=== PATIENT | male | born 1980 | race Two or more races ===

== ENCOUNTER 2024-02-23 09:36 | Inpatient (IN) | payer MEDICAID, SELFPAY ==
[2024-02-23 10:04] VITALS: BP 130/76; PULSE 76; RESP 24; TEMP 36.7; O2SAT 95
--- NOTE | 2024-02-23 10:14 | XR_ITS ---
Examination: CT abdomen with intravenous contrast CT pelvis with intravenous contrast 2-D coronal reconstructions 2-D sagittal reconstructions Date and time of exam:February 23, 2024 1444 hours INDICATIONS: Onset generalized abdominal pain today. CTDI: vol (mGy) 12.0 DLP: (mGycm) 795 Technique: Multiple axial sections of the abdomen and pelvis have been obtained. 64 slice high-resolution scanner used. 3 mm axial sections have been obtained, post intravenous injection 30 cc [id number] 2-D sagittal, coronal reconstructions obtained. Low dose protocols were performed. One or more of the following dose reduction techniques were used; automated exposure control, adjustment of the mA and/or KV according to patient size, use of iterative reconstruction technique. Findings: Moderate vascular congestion Cirrhosis with fatty infiltration, liver irregular in contour Moderate ascites Prominent anasarca No definite gallstones Spleen is not enlarged No pancreatic or adrenal mass No renal or ureteral calculi, no hydronephrosis Aorta not enlarged Fluid containing 25 mm umbilical hernia Appendix is not diagnostically visualized No bowel obstruction Intact urinary bladder No significant prostatomegaly Grade 1 spondylolisthesis L5 on S1 with moderate disc narrowing L5-S1 IMPRESSION: Moderate vascular congestion Cirrhosis Moderate ascites Anasarca 25 mm fluid containing umbilical hernia
--- NOTE | 2024-02-23 10:25 | EDNOTE_ITS ---
ED Abdominal Pain RME/HPI General Chief Complaint: Abdominal Pain Stated complaint: UMBILICAL PAIN [id number] Time seen by provider: 02/23/24 10:20 Arrival date/time: 02/23/24 09:36 RME / HPI RME / HPI narrative: 43 year old male with history of CAD, MD s/p CABG, hypertension, diabetes, DVT, methamphetamine use presents to the ED for evaluation of abdominal pain beginning 3 weeks ago and gradually worsening. States this morning pain was severe, prompting ED visit. Accompanied by constipation (last bowel movement this morning) and urine hesitancy this morning. Patients family at bedside also report patient had been coughing in the last week. Denies fevers, chills, chest pain, shortness of breath, vomiting, or painful urination. Related Data Previous Rx's ?Medication ?Instructions ?Recorded blood sugar diagnostic (Blood #100 ea 07/17/19 Glucose Test strips) blood-glucose meter (Blood Glucose #1 ea 07/17/19 Monitoring kit) lancets 30 gauge (BD Ultra-Fine II #100 ea 07/17/19 Lancets) pen needle, diabetic 32 gauge x #50 ea 07/17/19 1/ (BD Ultra-Fine Micro Pen Needle) apixaban 5 mg (74 tabs) tablets in 5 mg PO BID #74 tabs 08/15/21 a dose pack (Eliquis DVT-PE Treat 30D Start) apixaban 5 mg (74 tabs) tablets in 5 mg PO BID #74 tabs 10/12/21 a dose pack (Eliquis DVT-PE Treat 30D Start) furosemide 40 mg tablet (Lasix) 40 mg PO QDAY #30 tabs 02/04/22 potassium chloride 10 mEq 10 meq PO QDAY #30 tabs 02/04/22 tablet,extended release apixaban 5 mg tablet (Eliquis) 5 mg PO BID #60 tabs 04/14/22 levofloxacin 500 mg tablet 500 mg PO QDAY #10 tabs 06/22/23 Allergies Allergy/AdvReac Type Severity Reaction Status Date / Time No Known Allergies Allergy Verified 02/04/22 19:38 Review of Systems Review of Systems Narrative Review of Systems: GEN: No fever, no chills, no weight loss EYES: No discharge, no visual changes, no pain HEENT: No ear pain, no congestion, no sore throat PULM: No shortness of breath, no cough, no congestion CV: No chest pain, no dyspnea on exertion, no palpitations GI: No nausea, no vomiting, no diarrhea, +pain, +constipation : +urine hesitancy. No frequency, no urgency and no dysuria MUSC/SKEL No joint pain, no back pain SKIN: No rash NEURO: No weakness, no headache Past Medical History Past Medical History NEUROLOGIC: Positive Cerebrovascular Accident CARDIAC: Positive Cardiac Disorders, Myocardial Infarction, Coronary Artery Disease, Hypercholesterolemia, Deep Vein Thrombosis and Hypertension RESPIRATORY: Positive Asthma and Bronchitis GASTROINTESTINAL: Positive Gastrointestinal Disorders and Gastroesophageal Reflux Disease ENDOCRINE: Positive Endocrine Disorders and Diabetes Mellitus Type 2 Family History FAMILY HISTORY: Positive Family Cardiac Disorders Surgical History SURGICAL: Positive Coronary Artery Bypass Graft Social History SMOKING STATUS: Current some day smoker SUBSTANCE USE: methamphetamine ED Exam Narrative Physical exam: GENERAL APPEARANCE: Well hydrated, well nourished, appears to be in pain. VITALS: All vitals were reviewed and the pulse ox is 95% on room air which is normal according to my interpretation. HEENT: Normocephalic, atramatic, EOMI, EACs are patent. There is no bulge or re traction. Throat without erythema or exudate. Moist oromucosa. No jaundice NECK: Supple, no JVD or bruits. CARDIOVASCULAR: Heart regular without S3-S4 or murmur. No rubs or gallops. LUNGS/CHEST: Clear to auscultation bilaterally. No rales, rhonchi, or wheezing. Normal inspection. ABDOMEN: Soft, distended, vague generalized tenderness throughout with normal bowel sounds. Palpable umbilical hernia. No pulsatile masses. No rebound, rigidity, or guarding. No incarcerated hernia. EXTREMITIES: Normal inspection and palpation. No edema, clubbing, or cyanosis. Intact CSM SKIN: Warm and dry without rashes. Normal inspection. MUSCULOSKELETAL: Normal inspection. No gross deformity, full ROM all extremities NEURO: Alert and oriented x3. Cranial nerves II through XII grossly intact. There are no other motor or sensory deficits noted. PSYCHIATRIC: Normal mood and affect. No psychosis. Course Quality Measures none Orders Category Date Time Status CT Screening NOW Care 02/23/24 10:14 Active Insert IV NOW Care 02/23/24 10:[address] abdomen pelvis w con Stat Exams 02/23/24 10:14 Completed BNP [B-Type Natriuretic Peptide] Stat Lab 02/23/24 10:21 Completed CBC Stat Lab 02/23/24 10:21 Completed Comprehensive Metabolic Panel Stat Lab 02/23/24 10:21 Completed Drug Screen,Urine Stat Lab 02/23/24 10:14 Ordered Lipase Stat Lab 02/23/24 10:21 Completed UA, C/S IF [Urinalysis, C/S if Indicated] Stat Lab 02/23/24 10:14 Ordered Calcium Gluconate 10% Inj Med 02/23/24 16:00 Discontinued 1 gm IV X1 ONE LORazepam [Ativan Inj] Med 02/23/24 10:38 Discontinued 2 mg IVP X1 STA Morphine Inj Med 02/23/24 10:14 Discontinued 4 mg IVP X1 ONE Ondansetron Inj [Zofran Inj] Med 02/23/24 10:14 Discontinued 4 mg IV X1 ONE Sodium Bicarb 8.4% SYR Med 02/23/24 16:00 Discontinued 50 ml IV X1 ONE Sodium Chloride 0.9% 1000 ml [Ns] 1,000 ml Med 02/23/24 10:38 Active IV 125 mls/hr Vital Signs Vital signs: Vital Signs Temperature 98.0 F 02/23/24 10:04 Pulse Rate 76 02/23/24 10:04 Respiratory Rate 24 H 02/23/24 10:04 Blood Pressure 130/76 02/23/24 10:04 Pulse Oximetry (%) 95 02/23/24 10:04 Oxygen Delivery Method Room Air 02/23/24 10:04 Abdominal Pain MDM MDM Narrative MDM Narrative:: I, Breanne Miller, kendell scribing for and in the presence of Dr. Pritchard. CBC unremarkable. Potassium of 5.7. Bicarb of 17. Creatinine 1.6 and BUN of 39. Blood sugar is 152. We are giving him calcium gluconate, gentle IV fluid hydration, and sodium bicarb. U tox is pending. UA is pending. BNP is 1670. CT abdomen and pelvis was read by Dr. Tommy Davalos. Please see his report. I spoke to Dr. Tommy Davalos verbally on the phone. He said that the ascites fluid is not enough to be safely removed by paracentesis. 4 PM I spoke to and discussed with Dr. De La Rosa, resident of Dr. Little, attending hospitalist. He agreed to assess the patient for admission. Critical care time is approximately 35 minutes excluding any procedure. The high probability of sudden, clinically significant deterioration in the patient?s condition required the highest level of my preparedness to intervene urgently. The services I provided to this patient were to treat and/or prevent clinically significant deterioration. Services included the following: chart data review, reviewing nursing notes and/or old charts, documentation time, wardrobe image consultant collaboration regarding findings and treatment options, medication orders and management, direct patient care, vital sign assessments and ordering, interpreting and reviewing diagnostic studies and lab tests. Aggregate critical care time includes only time during which I was engaged in work directly related to the patient?s care, as described above, whether at bedside or elsewhere in the Emergency Department. It did not include time spent performing other reported procedures or the services of residents, students, nurses or physician assistants. Patient data External records reviewed:: [facility] previous records (I reviewed ED visit on 06/22/2023) Clinical information provided by:: patient Social determinants that could affect healthcare access:: substance use (Hx of meth use, states he last used more than 1 week ago ) Patient has the following chronic illnesses:: CAD, MD s/p CABG, hypertension, diabetes, DVT, methamphetamine use How is presenting disease/condition affected by chronic disease/condition?: exacerbated by Evaluation data The following diagnostics were reviewed and interpreted by me:: lab results and radiology exam(s) Lab and/or radiology exams considered but not ordered:: None Interpretation Summary: Ordering Physician: Agustin MOE)Ottoniel NP Date of Service: 02/23/24 Procedure(s): CT abdomen pelvis w con Accession Number(s): [id number] cc: Agustin MOE)Ottoniel NP; Tommy Davalos MD; Olaf Hernandez PA-C~ Examination: CT abdomen with intravenous contrast CT pelvis with intravenous contrast 2-D coronal reconstructions 2-D sagittal reconstructions Date and time of exam:February 23, 2024 1444 hours INDICATIONS: Onset generalized abdominal pain today. CTDI: vol (mGy) 12.0 DLP: (mGycm) 795 Technique: Multiple axial sections of the abdomen and pelvis have been obtained. 64 slice high-resolution scanner used. 3 mm axial sections have been obtained, post intravenous injection 30 cc [id number] 2-D sagittal, coronal reconstructions obtained. Low dose protocols were performed. One or more of the following dose reduction techniques were used; automated exposure control, adjustment of the mA and/or KV according to patient size, use of iterative reconstruction technique. Findings: Moderate vascular congestion Cirrhosis with fatty infiltration, liver irregular in contour Moderate ascites Prominent anasarca No definite gallstones Spleen is not enlarged No pancreatic or adrenal mass No renal or ureteral calculi, no hydronephrosis Aorta not enlarged Fluid containing 25 mm umbilical hernia Appendix is not diagnostically visualized No bowel obstruction Intact urinary bladder No significant prostatomegaly Grade 1 spondylolisthesis L5 on S1 with moderate disc narrowing L5-S1 IMPRESSION: Moderate vascular congestion Cirrhosis Moderate ascites Anasarca 25 mm fluid containing umbilical hernia Dictated By: oTmmy Davalos MD Signed By: <Electronically signed by Tommy Davalos MD in [place]> 02/23/24 1530 Medications / Prescriptions Medications or Prescriptions considered but not ordered:: None Medication administrations:: Medication Administration History Sodium Chloride (Ns) 1,000 mls @ 125 mls/hr IV .Q8H ONE Stop: 02/23/24 18:37 Last Admin: 02/23/24 12:38 Dose: 125 mls/hr Documented By: DB Discontinued Medications Calcium Gluconate (Calcium Gluconate 10% Inj 1 Gm/10 Ml Vial) 1 gm IV X1 ONE Stop: 02/23/24 16:01 Lorazepam (Lorazepam 2 Mg/Ml Vial) 2 mg IVP X1 STA Stop: 02/23/24 10:39 Last Admin: 02/23/24 10:48 Dose: 2 mg Documented By: CLAUDIO Morphine Sulfate (Morphine Sulf Inj 10 Mg/Ml Vial) 4 mg IVP X1 ONE Stop: 02/23/24 10:15 Last Admin: 02/23/24 10:31 Dose: 4 mg Documented By: DB Ondansetron HCl (Ondansetron Inj 2 Mg/Ml Inj 2 Ml) 4 mg IV X1 ONE; Protocol Stop: 02/23/24 10:15 Last Admin: 02/23/24 10:30 Dose: 4 mg Documented By: CLAUDIO Sodium Bicarbonate (Sodium Bicarb Inj 8.4% Syr 50 Ml Syringe) 50 ml IV X1 ONE Stop: 02/23/24 16:01 See above Consultations Consultation(s) initiated? (list below): Yes Consultation #1 (Physician, Specialty, Details): I spoke with hospitalist Dr. De La Rosa working with Dr. Little. Discussed patients PMHx, HPI, ED course, exam findings, labs, and radiology results as noted above. Diagnosis Differential diagnosis abdominal pain: abdominal pain, acute appendicitis, calculus of kidney, constipation, diverticulitis, gastroenteritis, pancreatitis and small bowel obstruction Most likely diagnosis given after review of the tests above:: Cirrhosis. Ascites. Umbilical hernia. Metabolic acidosis. Hyperkalemia Admission Indicated Admission indicated?: indicated Admission Request Was there a request for admission?: Yes Admission Attestation Admission request attestation: Discussed case with [] from Hospitalist service regarding admission. Discussed patients ED course, exam findings, labs, and radiology results. The Hospitalist [agrees,declines] to accept the patient for admission. Disposition Plan Disposition Plan: Admit Discharge Plan Plan Patient Disposition: Admit Acute Care w/in Hospital Disposition Comment: Stable for admit Prescriptions/Referrals Prescriptions/Med Rec: No Action Eliquis DVT-PE Treat 30D Start 5 mg (74 tabs) tablets,dose pack 5 mg PO BID Qty: 74 0RF Rx Instructions: Take 10 mg every day for 7 days then you lower the dose to 5 mg daily until your doctors tell you otherwise. (DME) blood-glucose meter [Blood Glucose Monitoring] Kit See Rx Instructions .ROUTE .MEDSUPPLY Qty: 1 0RF Rx Instructions: As directed check BS 3 times a day (DME) blood sugar diagnostic [Blood Glucose Test] Strip See Rx Instructions .ROUTE .MEDSUPPLY Qty: 100 0RF Rx Instructions: As directed check BS 3 times a day (DME) lancets [BD Ultra-Fine II Lancets] 30 gauge misc See Rx Instructions .ROUTE .MEDSUPPLY Qty: 100 0RF Rx Instructions: As directed check BS 3 times a day (DME) pen needle, diabetic [BD Ultra-Fine Micro Pen Needle] 32 gauge x 1/4 needle See Rx Instructions .ROUTE .MEDSUPPLY Qty: 50 0RF Rx Instructions: As directed Eliquis DVT-PE Treat 30D Start 5 mg (74 tabs) tablets,dose pack 5 mg PO BID Qty: 74 0RF Rx Instructions: Take 2 TAB/day x 7 days, and then 1 Tab thereafter Eliquis 5 mg tablet 5 mg PO BID Qty: 60 1RF levofloxacin 500 mg tablet 500 mg PO QDAY Qty: 10 0RF furosemide [Lasix] 40 mg tablet 40 mg PO QDAY Qty: 30 0RF potassium chloride 10 mEq tablet extended release 10 meq PO QDAY Qty: 30 0RF Referrals: Olaf Hernandez PA-C [Primary Care Provider] - In 1 week Problem List Clinical Impression: Abdominal pain, Cirrhosis of liver, Abdominal ascites, Umbilical hernia, Acute hyperkalemia, Metabolic acidosis Patient/Caregiver Discharge Instructions Print Language: Emirati Stand Alone Forms: Ellie Award Info., Patient Portal Info Letter
[2024-02-23] MEDS: ONDANSETRON INJ 2 MG/ML INJ 2 ML 4 MG IV (10:30)
[2024-02-23] MEDS: MORPHINE SULF INJ 10 MG/ML VIAL 4 MG IVP (10:31)
[2024-02-23 10:35] LABS: Basophils # (Auto) 0.1 Thou/mm3 (0.0-0.2); Basophils % (Auto) 1 % (0-2.5); Eosinophils # (Auto) 0.2 Thou/mm3 (0.0-0.5); Eosinophils % (Auto) 2 % (0-10); Hematocrit 36.7 % (41.0-53.0); Hemoglobin 11.7 g/dL (13.5-16.0); Immature Granulocytes % (Auto) 0 % (0-0); Immature Granulocytes Auto 0.02 Thou/mm3 (0.00-0.00); Lymphocytes # (Auto) 0.8 Thou/mm3 (1.0-4.8); Lymphocytes % (Auto) 11 % (10-50); Mean Corpuscular HGB Conc 31.9 g/dl (31.0-37.0); Mean Corpuscular Hemoglobin 29.3 pg (25.0-35.0); Mean Corpuscular Volume 92 fL (80-100); Monocytes # (Auto) 0.6 Thou/mm3 (0.0-0.8); Monocytes % (Auto) 9 % (0-12); Neutrophils # (Auto) 5.2 Thou/mm3 (1.8-7.7); Neutrophils % (Auto) 77 % (37-80); Nucleated Red Blood Cell % 0 /100 WBC (0); Platelet Count 241 Thou/mm3 (140-440); RDW Standard Deviation 56.5 fL (35.1-43.9); Red Blood Count 3.99 Miln/mm3 (4.50-5.90); White Blood Count 6.7 Thou/mm3 (3.8-10.6)
[2024-02-23] MEDS: LORazepam 2 MG/ML VIAL IVP (10:48)
[2024-02-23 11:01] LABS: Alanine Aminotransferase 17 U/L (10-49); Albumin, Serum 3.8 gm/dL (3.5-5.0); Alkaline Phosphatase 144 U/L (46-116); Anion Gap 10 (7-16); Aspartate Amino Transferase 24 U/L (0-34); BUN/Creatinine Ratio 24 Ratio (12-20); Bilirubin,Total 1.2 mg/dL (0.3-1.2); Blood Urea Nitrogen 39 mg/dL (9-23); Calcium 8.8 mg/dL (8.3-10.6); Carbon Dioxide 17.1 mMol/L (20.0-31.0); Chloride 105 mMol/L (98-107); Creatinine (Component) 1.6 mg/dL (0.6-1.3); Globulin 3.8 gm/dL (2.3-3.5); Glucose 152 mg/dL (74-106); Lipase 53 U/L (12-53); Osmolality,Calculated 276 (275-295); Potassium 5.7 mMol/L (3.4-5.1); Sodium 132 mMol/L (136-145); Total Protein 7.6 gm/dL (5.7-8.2); eGFR 55 See Note
[2024-02-23 12:02] LABS: B-Type Natriuretic Peptide 1672 pg/mL (0-100)
[2024-02-23 12:32] VITALS: BP 128/90; PULSE 56; RESP 20; TEMP 36.5; O2SAT 100
[2024-02-23] MEDS: SODIUM CHLORIDE 0.9% 1000 ML 1,000 ML 125 ML IV (12:38)
[2024-02-23 14:22] VITALS: BP 145/94; PULSE 55; RESP 17; TEMP 37; O2SAT 100
[2024-02-23] MEDS: CALCIUM GLUCONATE 10% INJ 1 GM/10 ML VIAL IV (16:20)
[2024-02-23] MEDS: Sodium Bicarb Inj 8.4% SYR 50 ML SYRINGE IV ×2 (16:25→18:28)
[2024-02-23 16:30] LABS: Collection Type, Urine Clean Catch
[2024-02-23 16:37] LABS: Bilirubin,Urine Negative (Negative); Blood,Urine Trace (Negative); Clarity,Urine Clear (Clear/Hazy); Color,Urine Yellow (Lt Yel-Yel); Culture Indicated,Urine Not Indicated; Glucose, Urine Trace (Negative); Hyaline Casts,Urine < 1 /hpf (0-1); Ketones,Urine Negative (Negative); Leukocyte Esterase,Urine Negative (Negative); Nitrite,Urine Negative (Negative); PH,Urine 5.5 (5.0-7.0); Protein,Urine 3+ (Neg - Trace); RBC,Urine 2 /hpf (0-3); Specific Gravity,Urine 1.024 (1.001-1.035); Squamous Epithelial Cell,Urine < 1 /hpf (0-5); WBC,Urine 3 /hpf (0-5)
--- NOTE | 2024-02-23 16:43 | EKG_ITS ---
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
--- NOTE | 2024-02-23 16:53 | EKG_ITS ---
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1980 Requested By: Annabelle Baltazar Order Number: [id number] Reading MD: Annabelle Baltazar Measurements Intervals [place] Rate: 65 P: 27 MD: 169 QRS: 131 QRSD: 112 T: 23 QT: 430 QTc: 448 Interpretive Statements SINUS RHYTHM MARKED RIGHT AXIS DEVIATION [QRS AXIS > 100] LOW QRS VOLTAGE IN EXTREMITY LEADS [QRS DEFLECTION < 0.5 mV IN LIMB LEADS] ANTERIOR MYOCARDIAL INFARCTION , PROBABLY OLD [40+ ms Q WAVE AND/OR ST/T ABNORMALITY IN V3/V4] POSSIBLE INFERIOR MYOCARDIAL INFARCTION , PROBABLY OLD [30 ms Q WAVE IN II/aVF] Compared to ECG 02/23/2024 16:49:59 Right-axis deviation now present Myocardial infarct finding still present /store/S0/[id number]/[id number].pdf
--- NOTE | 2024-02-23 16:56 | PD.EDADDENDU ---
Emergency Room Addendum Addendum Narrative: EKG at 1652 interpreted by me: Normal sinus rhythm. Heart rate of 63. Normal axis. No ST elevation. No ST depression. No PVC. No STEMI. Old Q waves in leads V2
[2024-02-23 16:58] VITALS: BP 137/87; PULSE 57; RESP 20; TEMP 37; O2SAT 100
--- NOTE | 2024-02-23 16:58 | ECHO_ITS ---
Transthoracic Echo Report Ht (in): 64 Wt (lb): 220 Exam Location: Portable Status: Emergency Anesthetist: Aretha Auguste Indications: Procedure Performed: BP: 120 / 55 HR: 64 Rhythm: Atrial fibrillation Technical Quality: Fair MEASUREMENTS (Male / Female) Normal Values 2D ECHO LV Diastolic Diameter PLAX 5.7 cm 4.2 - 5.9 / 3.9 - 5.3 cm LV Systolic Diameter PLAX 4.9 cm IVS Diastolic Thickness 1.6 cm 0.6 - 1.0 / 0.6 - 0.9 cm LVPW Diastolic Thickness 1.1 cm 0.6 - 1.0 / 0.6 - 0.9 cm LV Relative Wall Thickness 0.5 LVOT Diameter 2.3 cm LA Volume Index 40.8 cm?/m? 16 - 28 cm?/m? Ascending Aorta Diameter 3.0 cm M-MODE Aortic Root Diameter MM 2.8 cm LA Systolic Diameter MM 4.9 cm LA Ao Ratio MM 1.8 MV E Point Septal Separation 1.6 cm AV Cusp Separation MM 2.0 cm DOPPLER AV Peak Velocity 136.0 cm/s AV Peak Gradient 7.4 mmHg AV Mean Gradient 4.0 mmHg AV Velocity Time Integral 25.7 cm LVOT Peak Velocity 77.1 cm/s LVOT Peak Gradient 2.4 mmHg LVOT Velocity Time Integral 13.9 cm LVOT Cardiac Index 1703.0 cm?/min?m? AV Area Cont Eq vti 2.2 cm? AV Area Cont Eq pk 2.4 cm? MV Peak Velocity 129.0 cm/s MV Peak Gradient 6.7 mmHg MV Mean Velocity 60.7 cm/s MV Mean Gradient 2.0 mmHg MV Area PHT 4.3 cm? MR Peak Velocity 282.0 cm/s MR Peak Gradient 31.8 mmHg Mitral E Point Velocity 101.0 cm/s Mitral A Point Velocity 32.5 cm/s Mitral E to A Ratio 3.1 LV E' Lateral Velocity 6.9 cm/s Mitral E to LV E' Lateral Ratio 14.7 LV E' Septal Velocity 5.9 cm/s Mitral E to LV E' Septal Ratio 17.2 TR Peak Velocity 256.3 cm/s TR Peak Gradient 26.3 mmHg FINDINGS Left Ventricle Dilated LV. Severe systolic dysfunction. Global hypokiensis. The ejection fraction is visually est imated at 30-35%. Right Ventricle The right ventricle is moderately dilated. Mild systolic dysfunction. The estimated right ventricula r systolic pressure, 54mmHg. RAP 15. Left Atrium The left atrium is mildly dilated. Right Atrium The right atrium is mildly dilated Atrial Septum The interatrial septum appears normal with no evidence of a shunt. Aorta The aorta is normal by two-dimensional, color flow and Doppler interrogation. Mitral Valve The mitral valve is normal by two-dimensional, color flow and Doppler interrogation. There is mild mitral valve regurgitation. Aortic Valve The aortic valve is trileaflet and normal by two-dimensional, color flow and Doppler interrogation. There is no significant aortic valve regurgitation. Tricuspid Valve The tricuspid valve is normal by two-dimensional, color flow and Doppler interrogation. There is mil d to moderate tricuspid valve regurgitation. Pulmonic Valve There is no significant pulmonic valve regurgitation. Vessels The pulmonary artery appears normal. The inferior vena cava pulmonary and hepatic veins appear dilat ed. Pericardium The pericardium is normal by two-dimensional imaging. There is no significant pericardial effusion. CONCLUSIONS Indication: CHF Dilated LV. Severe systolic dysfunction. Moderate septal LVH. Global hypokinesis. Estimated EF 30-3 5% Cannot determine diastolic function due to Afib. Moderate RV dilatation. Mild RV dysfunction. Estimated RVSP 54mmHg. Modertae PAH Mild biatrial dialtation. Pleural effusion present. Mild MR, Mild to moderate TR. IVC dilated. Aneesh Ashraf (Electronically Signed) Final Date: 24 February 2024 19:35
[2024-02-23 17:12] LABS: Base Excess -9 (-3-3); HCO3 17 mEq/L (20-26); Inspired O2, VO2 Liters 4 L/min; Inspired Oxygen, FIO2 21 %; O2 Saturation 100 % (91-98); PCO2 39 mmHg (32.0-48.0); PO2 142 mmHg (83-108); pH, Arterial 7.26 (7.35-7.45)
[2024-02-23 17:13] LABS: Allen Test Performed/OK; Puncture Site Right Radial
--- NOTE | 2024-02-23 17:15 | XR_ITS ---
Examination: AP chest single view TECHNIQUE: AP portable semiupright chest single view Exam date and time: February 23, 2024 1733 hours Comparison April 14, 2022 INDICATIONS: Shortness of breath today. FINDINGS: Mild to moderate CHF Moderate enlargement cardiac contour CABG Prominent vascular congestion. Perihilar edema Prominent osteopenia IMPRESSION: Mild to moderate CHF
--- NOTE | 2024-02-23 17:15 | XR_ITS ---
Examination: CT brain head without contrast. 2-D sagittal coronal reconstructions Date and time of exam:February 23, 2024 2019 hrs. Indications: Altered mental status today, diagnosis acute decompensated liver cirrhosis CTDI: vol (mGy):54.8 DLP: (mGycm):1085 Technique: Multiple CT axial sections of the brain have been obtained, 5 mm slice thickness. Contrast has not been administered. 2-D sagittal, coronal reconstructions have been obtained Low dose protocols were performed. One or more of the following dose reduction techniques were used; automated exposure control, adjustment of the mA and/or KV according to patient size, use of iterative reconstruction technique. Findings: No significant ventricular enlargement. Intra-axial or extra-axial hemorrhage density is not seen. No mass effect or midline shift Basal cisterns are not remarkable. Fourth ventricle is midline. Cranial vault intact. Impression: Negative for acute hemorrhage, mass effect or midline shift Advise clinical correlation and follow-up accordingly Consider MRI without contrast follow-up
--- NOTE | 2024-02-23 17:28 | PD.RESPRO ---
Documentation for date of: 02/23/24 Subjective Subjective Interval history: This is a 43-year-old male with past medical history of CHF, CAD s/p CABG, liver cirrhosis, HTN, diabetes, previous DVT, alcohol dependency, METHAMPHETAMINE, presenting with 3 weeks of worsening abdominal pain, constipation, urinary hesitation. History was limited, taken from chart review, and [id number] at bedside as patient was A&Ox3 but somnolent after getting MORPHINE and LORAZEPAM earlier. He has been complaining of worsening abdominal pain over the last 3 weeks, refused to come into the hospital, attempted to manage her pain independently, but it did not resolve. Apparently pain worsened significantly over the last 2 days and was complaining of urinary symptoms (unspecified). Last bowel movement was this morning and it was normal. Per family, patient noncompliant with his home meds. No reported headaches, altered mental status, confusions, fall or trauma, fever, chills, GI bleed including hematemesis or hematochezia, nausea or vomiting or diarrhea, or hematuria. ED COURSE: Afebrile, BP 130/76, HR 76, RR 24, satting 95% on 7 L. Hgb 11.7 (baseline 12?13), PLT 241, no leukocytosis. Normal coag studies. Sodium 132, potassium 5.7, BUN 39, CR 1.6 (baseline 1.3), GFR 55, GLUCOSE 152, normal LFTs, ammonia 46, BNP 1672, troponin pending, GLUCOSE 52. ABG showed metabolic acidosis with pH 7.26, bicarb 17, pCO2 39. Anion gap normal. UA negative for UTI. U tox pending. PMHx: CHF, CAD s/p CABG, cirrhosis, HTN, DM, previous DVT, alcohol dependency, METHAMPHETAMINE dependency. PSHx: CABG MEDS: LASIX, SPIRONOLACTONE, FARXIGA, ENTRESTO, ASPIRIN, REPATHA, statin, PAROXETINE ALLERGIES: No known allergies SH: Denies smoking, admits to alcohol use and drug use. Exam Vital Signs Temp Pulse Resp BP Pulse Ox O2 Del Method O2 Flow Rate 98.6 F 57 L 20 137/87 H 100 Nasal Cannula 6 02/23/24 16:58 02/23/24 16:58 02/23/24 16:58 02/23/24 16:58 02/23/24 16:58 02/23/24 16:58 02/23/24 16:58 Narrative Exam GENERAL Obese, anasarcous, somnolent, on 6 L NC HEENT NCAT.?ANI. Oral mucosa is moist. Patent Nares NECK Supple, nontender, no thyromegaly, no meningismus, no JVD, no step offs CHEST RRR, no m/g/r Coarse breath sounds bilaterally, no wheezing. Atraumatic, nontender, no crepitus, symmetrical expansion. ABDOMEN Distended, positive fluid shift, striations, erythematous, diffusely tender to palpation with guarding. Umbilical hernia noted on exam. Bowel sounds presents EXTREMITIES 2+ bilateral lower extremity edema extending above the knee, tender to palpation, erythematous. SKIN Warm and dry, mild scleral icterus, no jaundice NEUROMUSCULAR No lumbar or midline, no CVA, no paraspinal muscle spasm or tenderness. Moves all 4 extremities well, with full ROM and good CSM. A&Ox3. No focal neurologic deficits. PSYCHIATRY Numbness, difficult to arouse, cooperative, no SI or HI or hallucinations. Objective Labs 02/23/24 10:21 02/23/24 10:21 Labs: Laboratory Results - last 24 hr 02/23/24 02/23/24 02/23/24 10:21 16:00 17:08 WBC 6.7 RBC 3.99 L Hgb 11.7 L Hct 36.7 L MCV 92 MCH 29.3 MCHC 31.9 RDW Std Deviation 56.5 H Plt Count 241 Neut % (Auto) 77 Lymph % (Auto) 11 [place] % (Auto) 9 Eos % (Auto) 2 Baso % (Auto) 1 Neut # (Auto) 5.2 Lymph # (Auto) 0.8 L [place] # (Auto) 0.6 Eos # (Auto) 0.2 Baso # (Auto) 0.1 Immature Gran # (Auto) 0.02 H Absolute Nucleated RBC 0.00 Immature Gran % 0 Nucleated RBC % 0 Puncture Site Right Radial ABG pH 7.26 L ABG pCO2 39 ABG pO2 142 H ABG HCO3 17 L ABG O2 Saturation 100 H ABG Base Excess -9 L Oxygen Liter Flow 4 FiO2 21 Sodium 132 L Potassium 5.7 H Chloride 105 Carbon Dioxide 17.1 L Anion Gap 10 BUN 39 H Creatinine 1.6 H Estim Creat Clear Calc Not Performed. eGFR 55 L BUN/Creatinine Ratio 24 H Glucose 152 H Calculated Osmolality 276 Calcium 8.8 Corrected Calcium 9.0 Total Bilirubin 1.2 AST 24 ALT 17 Alkaline Phosphatase 144 H B-Natriuretic Peptide 1672 H* Total Protein 7.6 Albumin 3.8 Globulin 3.8 H Albumin/Globulin Ratio 1.0 L Lipase 53 Ur Collection Type Clean Catch Urine Color Yellow Urine Clarity Clear Urine pH 5.5 Ur Specific [place] 1.024 Urine Protein 3+ A Urine Glucose (UA) Trace Urine Ketones Negative Urine Blood Trace Urine Nitrite Negative Urine Bilirubin Negative Urine Urobilinogen (Auto) 2.0 Ur Leukocyte Esterase Negative Urine RBC 2 Urine WBC 3 Ur Squamous Epith Cells < 1 Urine Bacteria None Hyaline Casts < 1 Ur Culture Indicated? Not Indicated ABG Interpretation ABG results: 02/23/24 17:08 ABG pH 7.26 L ABG pCO2 39 ABG pO2 142 H ABG HCO3 17 L ABG O2 Saturation 100 H ABG Base Excess -9 L Quality Measures Quality Measures none Assessment & Plan Assessment Current Active Medications: Generic Name Dose Route Start Last Admin Trade Name Freq PRN Reason Stop Dose Admin Aspirin 81 mg 02/24/24 09:00 Aspirin Ec 81 Mg Tabec PO 03/25/24 08:59 QDAY [facility] Atorvastatin Calcium 80 mg 02/23/24 21:00 Atorvastatin Calcium 20 Mg Tablet PO 03/24/24 20:59 HS JUDSON Dextrose 25 ml 02/23/24 16:54 Dextrose 50%-Water Inj 50 Ml Syringe IV 03/24/24 16:53 Q15MIN PRN BG 50-70 responsive npo pt Dextrose 50 ml 02/23/24 16:54 Dextrose 50%-Water Inj 50 Ml Syringe IV 03/24/24 16:53 Q15MIN PRN BG <50 OR BG <70 & pt unresponsive Furosemide 40 mg 02/24/24 09:00 Furosemide Inj 10 Mg/Ml 4ml Vial IVP 03/25/24 08:59 BID JUDSON Glucagon 1 mg 02/23/24 16:54 Glucagon Inj 1 Mg Vial IM Q15MIN PRN BG <70, and no IV access Ceftriaxone Sodium 2 gm/ 50 mls @ 100 mls/hr 02/23/24 17:00 Sodium Chloride IV 03/01/24 16:59 QDAY [facility] Insulin Human Lispro 0 unit 02/24/24 07:30 Insulin Lispro (Admelog) 1 Unit/0.01 Ml Unit SC 03/25/24 07:29 AC JUDSON Protocol Ondansetron HCl 4 mg 02/23/24 16:56 Ondansetron Inj 2 Mg/Ml Inj 2 Ml IV 03/24/24 16:55 Q6H PRN NAUSEA OR VOMITING Protocol Oxycodone/Acetaminophen 1 tab 02/23/24 16:56 Oxycodone/Apap 5/325 Tablet PO 02/28/24 16:55 Q6H PRN PAIN SCALE 4-6 (Moderate Pantoprazole Sodium 40 mg 02/23/24 21:00 Pantoprazole Inj 40 Mg Vial IVP 03/24/24 20:59 BID JUDSON Spironolactone 25 mg 02/24/24 09:00 Spironolactone 25 Mg Tablet PO 03/25/24 08:59 QDAY JUDSON Plan In summary: 43-year-old male with PMHx of CHF, CAD s/p CABG, liver cirrhosis, HTN, diabetes, previous DVT, alcohol dependency, METHAMPHETAMINE, presenting with abdominal pain. Admitted for liver cirrhosis, anasarcous, CHF exacerbation, and VIOLETA. Acute encephalopathy DDx: ANALGESICS, alcohol intoxication, hepatic encephalopathy. Patient somnolent on exam, ANOx3. Likely related to MORPHINE and LORAZEPAM given for pain earlier. Per family at bedside, he had normal mentation prior. Ammonia 46, still low suspicion for hepatic encephalopathy but will give LACTULOSE ? ? Liver cirrhosis Anasarca CHF exacerbation Anemia Hyperkalemia VIOLETA with 3 weeks of worsening abdominal pain, constipation, urinary hesitation. History was limited, taken from chart review, and [id number] at bedside as patient was A&Ox3 but somnolent after getting MORPHINE and LORAZEPAM earlier. He has been complaining of worsening abdominal pain over the last 3 weeks, refused to come into the hospital, attempted to manage her pain independently, but it did not resolve. Apparently pain worsened significantly over the last 2 days and was complaining of urinary symptoms (unspecified). Last bowel movement was this morning and it was normal. Per family, patient noncompliant with his home meds. No reported headaches, altered mental status, confusions, fall or trauma, fever, chills, GI bleed including hematemesis or hematochezia, nausea or vomiting or diarrhea, or hematuria. ED COURSE: Afebrile, BP 130/76, HR 76, RR 24, satting 95% on 7 L. Hgb 11.7 (baseline 12?13), PLT 241, no leukocytosis. Normal coag studies. Sodium 132, potassium 5.7, BUN 39, CR 1.6 (baseline 1.3), GFR 55, GLUCOSE 152, normal LFTs, ammonia 46, BNP 1672, troponin pending, GLUCOSE 52. ABG showed metabolic acidosis with pH 7.26, bicarb 17, pCO2 39. Anion gap normal. UA negative for UTI. U tox pending.
[2024-02-23 17:37] LABS: Ammonia 46 uMol/L (11-32)
--- NOTE | 2024-02-23 17:37 | XR_ITS ---
Examination: Venous duplex lower extremity sonogram, bilateral. Date and time of exam: February 23, 2024 1759 hrs. Bilateral leg swelling and redness pain one month Technique: Multiple sonographic images of the deep venous system have been obtained. B-mode/2-D grayscale imaging of vascular structures and Doppler spectral analysis (waveforms) and color performed Both legs are examined. Findings: Deep venous systems do not demonstrate abnormal echogenicity. All visualized deep veins exhibit compressibility. All visualized deep veins exhibit augmentation. Impression: Negative for deep vein thrombosis
[2024-02-23] MEDS: DEXTROSE 50%-WATER INJ 50 ML SYRINGE IV ×5 (17:54→23:20)
[2024-02-23 17:57] LABS: Glucose Estimated Average 131 mg/dL (80-131); Hemoglobin A1C 6.2 % Hgb (4.8-6.0)
[2024-02-23 17:58] VITALS: BP 146/67; PULSE 64
[2024-02-23] MEDS: FUROSEMIDE INJ 10 MG/ML 4ML VIAL 40 MG IVP (17:58)
[2024-02-23] MEDS: INSULIN HUM REGULAR 1 UNIT/0.01 ML (PER UNIT) 5 UNIT IV ×2 (18:02→18:47)
--- NOTE | 2024-02-23 18:04 | ESHP_ITS ---
<Statement entered by Annabelle Baltazar MD - 02/24/24 06:48> I discussed with and supervised my co-resident involved in the care of this patient. I agree with the assessment and plan as documented above. Annabelle Baltazar,[id number] Disclaimer: Despite multiple revisions, due to the dictation software being used, the document below may not be free of grammatical errors including phonetic/typographic errors. However, this does not deter from our commitment to providing health care in the patient's best interest in mind. Documentation for date of: 02/23/24 HPI History of Present Illness History of present illness: This is a 43-year-old male with past medical history of CHF, CAD s/p CABG, liver cirrhosis, HTN, diabetes, previous DVT, alcohol dependency, METHAMPHETAMINE, presenting with 3 weeks of worsening abdominal pain, constipation, urinary hesitation. History was limited, taken from chart review, and [id number] at bedside as patient was A&Ox3 but somnolent after getting MORPHINE and LORAZEPAM earlier. He has been complaining of worsening abdominal pain over the last 3 weeks, refused to come into the hospital, attempted to manage her pain independently, but it did not resolve. Apparently pain worsened significantly over the last 2 days and was complaining of urinary symptoms (unspecified). Last bowel movement was this morning and it was normal. Per family, patient noncompliant with his home meds. No reported headaches, altered mental status, confusions, fall or trauma, fever, chills, GI bleed including hematemesis or hematochezia, nausea or vomiting or diarrhea, or hematuria. ED COURSE: Afebrile, BP 130/76, HR 76, RR 24, satting 95% on 7 L. Hgb 11.7 (baseline 12?13), PLT 241, no leukocytosis. Normal coag studies. Sodium 132, potassium 5.7, BUN 39, CR 1.6 (baseline 1.3), GFR 55, GLUCOSE 152, normal LFTs, ammonia 46, BNP 1672, troponin pending, GLUCOSE 52. ABG showed metabolic acidosis with pH 7.26, bicarb 17, pCO2 39. Anion gap normal. UA negative for UTI. U tox pending. PMHx: CHF, CAD s/p CABG, cirrhosis, HTN, DM, previous DVT, alcohol dependency, METHAMPHETAMINE dependency. PSHx: CABG MEDS: LASIX, SPIRONOLACTONE, FARXIGA, ENTRESTO, ASPIRIN, REPATHA, statin, PAROXETINE ALLERGIES: No known allergies SH: Denies smoking, admits to alcohol use and drug use. Exam Vital Signs Temp Pulse Resp BP Pulse Ox O2 Del Method O2 Flow Rate 98.6 F 64 20 146/67 H 100 Nasal Cannula 6 02/23/24 16:58 02/23/24 17:58 02/23/24 16:58 02/23/24 17:58 02/23/24 16:58 02/23/24 16:58 02/23/24 16:58 Narrative Exam GENERAL * Obese, anasarcous, somnolent, on 6 L NC HEENT * NCAT.?ANI. Oral mucosa is moist. Patent Nares NECK * Supple, nontender, no thyromegaly, no meningismus, no JVD, no step offs CHEST * RRR, no m/g/r * Coarse breath sounds bilaterally, no wheezing. * Atraumatic, nontender, no crepitus, symmetrical expansion. ABDOMEN * Distended, positive fluid shift, striations, erythematous, diffusely tender to palpation with guarding. Umbilical hernia noted on exam. * Bowel sounds presents EXTREMITIES * 2+ bilateral lower extremity edema extending above the knee, tender to palpation, erythematous. SKIN * Warm and dry, mild scleral icterus, no jaundice NEUROMUSCULAR * No lumbar or midline, no CVA, no paraspinal muscle spasm or tenderness. * Moves all 4 extremities well, with full ROM and good CSM. * A&Ox3. * No focal neurologic deficits. PSYCHIATRY * Somnolence, difficult to arouse, cooperative, no SI or HI or hallucinations. Results: Labs 02/24/24 05:30 02/24/24 05:30 Labs: Short CBC 02/23/24 Range/Units 10:21 WBC 6.7 (3.8-10.6) Thou/mm3 Hgb 11.7 L (13.5-16.0) g/dL Hct 36.7 L (41.0-53.0) % Plt Count 241 (140-440) Thou/mm3 BMP 02/23/24 10:21 Sodium 132 L Potassium 5.7 H Chloride 105 Carbon Dioxide 17.1 L BUN 39 H Creatinine 1.6 H Glucose 152 H Calcium 8.8 Liver Function 02/23/24 Range/Units 10:21 Total Bilirubin 1.2 (0.3-1.2) mg/dL AST 24 (0-34) U/L ALT 17 (10-49) U/L Alkaline Phosphatase 144 H (46-116) U/L Albumin 3.8 (3.5-5.0) gm/dL Urine 02/23/24 Range/Units 16:00 Urine Color Yellow (Lt Yel-Yel) Urine Clarity Clear (Clear/Hazy) Urine pH 5.5 (5.0-7.0) Ur Specific [place] 1.024 (1.001-1.035) Urine Protein 3+ A (Neg - Trace) Urine Glucose (UA) Trace (Negative) ABG Interpretation ABG results: 02/23/24 17:08 ABG pH 7.26 L ABG pCO2 39 ABG pO2 142 H ABG HCO3 17 L ABG O2 Saturation 100 H ABG Base Excess -9 L Quality Measures Quality Measures none Medications Home Medications and Allergies Allergies Allergy/AdvReac Type Severity Reaction Status Date / Time No Known Allergies Allergy Verified 02/04/22 19:38 Visit Medications Aspirin (Aspirin Ec 81 Mg Tabec) 81 mg PO QDAY JUDSON Stop: 03/25/24 08:59 Atorvastatin Calcium (Atorvastatin Calcium 20 Mg Tablet) 80 mg PO HS JUDSON Stop: 03/24/24 20:59 Dextrose (Dextrose 50%-Water Inj 50 Ml Syringe) 25 ml IV Q15MIN PRN PRN Reason: BG 50-70 responsive npo pt Stop: 03/24/24 16:53 Dextrose (Dextrose 50%-Water Inj 50 Ml Syringe) 50 ml IV Q15MIN PRN PRN Reason: BG <50 OR BG <70 & pt unresponsive Stop: 03/24/24 16:53 Furosemide (Furosemide Inj 10 Mg/Ml 4ml Vial) 40 mg IVP BID JUDSON Stop: 03/25/24 08:59 Glucagon (Glucagon Inj 1 Mg Vial) 1 mg IM Q15MIN PRN PRN Reason: BG <70, and no IV access Ceftriaxone Sodium 2 gm/ (Sodium Chloride) 50 mls @ 100 mls/hr IV QDAY JUDSON Stop: 03/01/24 16:59 Insulin Human Lispro (Insulin Lispro (Admelog) 1 Unit/0.01 Ml Unit) 0 unit SC AC [facility]; Protocol Stop: 03/25/24 07:29 Ondansetron HCl (Ondansetron Inj 2 Mg/Ml Inj 2 Ml) 4 mg IV Q6H PRN; Protocol PRN Reason: NAUSEA OR VOMITING Stop: 03/24/24 16:55 Oxycodone/Acetaminophen (Oxycodone/Apap 5/325 Tablet) 1 tab PO Q6H PRN PRN Reason: PAIN SCALE 4-6 (Moderate Stop: 02/28/24 16:55 Pantoprazole Sodium (Pantoprazole Inj 40 Mg Vial) 40 mg IVP BID [facility] Stop: 03/24/24 20:59 Spironolactone (Spironolactone 25 Mg Tablet) 25 mg PO QDAY [facility] Stop: 03/25/24 08:59 Discontinued Medications Hydrocodone Bitart/Acetaminophen (Hydrocodone/Apap 10/325 Tab) 1 tab PO Q4HR PRN PRN Reason: PAIN SCALE 7-10 (Severe Stop: 02/28/24 16:55 Hydrocodone Bitart/Acetaminophen (Hydrocodone/Apap 5/325 Tablet) 1 tab PO Q6HR PRN PRN Reason: pain Stop: 02/28/24 17:25 Calcium Gluconate (Calcium Gluconate 10% Inj 1 Gm/10 Ml Vial) 1 gm IV X1 ONE Stop: 02/23/24 16:01 Last Admin: 02/23/24 16:20 Dose: 1 gm Dextrose (Dextrose 50%-Water Inj 50 Ml Syringe) 50 ml IV X1 ONE Stop: 02/23/24 17:50 Last Admin: 02/23/24 17:54 Dose: 50 ml Furosemide (Furosemide Inj 10 Mg/Ml 4ml Vial) 40 mg IVP X1 ONE Stop: 02/23/24 16:57 Last Admin: 02/23/24 17:58 Dose: 40 mg Sodium Chloride (Ns) 1,000 mls @ 125 mls/hr IV .Q8H ONE Stop: 02/23/24 18:37 Last Admin: 02/23/24 12:38 Dose: 125 mls/hr Insulin Human Regular (Insulin Hum Regular 1 Unit/0.01 Ml (Per Unit)) 5 unit IV X1 ONE Stop: 02/23/24 16:55 Last Admin: 02/23/24 18:02 Dose: 5 unit Lactulose (Lactulose Syrup 20 Gm/30 Ml Udc) 10 gm PO X1 ONE; Protocol Stop: 02/23/24 18:02 Lorazepam (Lorazepam 2 Mg/Ml Vial) 2 mg IVP X1 STA Stop: 02/23/24 10:39 Last Admin: 02/23/24 10:48 Dose: 2 mg Morphine Sulfate (Morphine Sulf Inj 10 Mg/Ml Vial) 4 mg IVP X1 ONE Stop: 02/23/24 10:15 Last Admin: 02/23/24 10:31 Dose: 4 mg Ondansetron HCl (Ondansetron Inj 2 Mg/Ml Inj 2 Ml) 4 mg IV X1 ONE; Protocol Stop: 02/23/24 10:15 Last Admin: 02/23/24 10:30 Dose: 4 mg Pantoprazole Sodium (Pantoprazole Inj 40 Mg Vial) 40 mg IVP QDAY JUDSON Stop: 03/24/24 16:59 Sodium Bicarbonate (Sodium Bicarb Inj 8.4% Syr 50 Ml Syringe) 50 ml IV X1 ONE Stop: 02/23/24 16:01 Last Admin: 02/23/24 16:25 Dose: 50 ml Assessment & Plan Plan In summary: 43-year-old male with PMHx of CHF, CAD s/p CABG, liver cirrhosis, HTN, diabetes, previous DVT, alcohol dependency, METHAMPHETAMINE, presenting with abdominal pain. Admitted for liver cirrhosis, anasarcous, CHF exacerbation, and VIOLETA. Acute encephalopathy Alcohol dependency DDx: ANALGESICS, alcohol intoxication, hepatic encephalopathy. Patient somnolent on exam, ANOx3. Likely related to MORPHINE and LORAZEPAM given for pain earlier. Per family at bedside, he had normal mentation prior. Ammonia 46, still low suspicion for hepatic encephalopathy but will give LACTULOSE. No signs of withdrawal, seizure or hallucination. ? Gave LACTULOSE 10 mg x 1 ? Pending alcohol level ? Avoid oversedation Liver cirrhosis Anasarca History of liver cirrhosis. Abdominal striae, anasarca, mild scleral icterus on exam. CT shows cirrhosis, moderate ascites and anasarcous. Normal liver synthetic and enzyme. Normal INR, total bili, LFTs, ALBUMIN. Ammonia 46. Radiology stated not enough ascitic fluid to be drained safely. We will reconsider and repeat tomorrow. CHILD-BONDS 7. MELD 14 indicated 6% 3-month mortality rate ? Continue LASIX 40 IV BID ? Continue home SPIRONOLACTONE 25 mg daily ? Pending paracentesis with fluid analysis CHF exacerbation History of CHF and medication noncompliance. 2+ bilateral lower extremity edema, coarse breath sounds on exam with bibasilar crackles. BNP 1672. CXR showed mild- mod CHF. CT showed vascular congestion. ? Continue LASIX and SPIRONOLACTONE as above ? Strict HARMONY's ? Fluid restriction <1200 cc daily ? Pending echocardiogram ? Pending lipid panel, TSH, A1c Hyperkalemia Admission potassium 5.7. No related T wave abnormalities on EKG. Likely in settings of VIOLETA. Repeat, potassium 6.4 prior to giving INSULIN. ? Given CALCIUM GLUCONATE 1 g X1 ? Given 10 units INSULIN X1 ? Given sodium bicarb millimeter X1 ? Given KAYEXALATE 10 mg X1 ? Pending repeat EKG Prerenal VIOLETA Likely in settings of CHF exacerbation versus cirrhosis. CR 1.6, BUN 39, GFR 55. No history of CKD. Anticipate improvement with diuresis. ? Diuresis as above ? Renally dose meds, avoid overdiuresis and NEPHROTOXINS ? Daily CMP Acute abdominal pain DDx: SBP, constipation, gastritis, umbilical hernia Complains of 3 weeks of abdominal pain and constipation. Abdomen distended and tender diffusely with mild guarding on exam. CT showed ascites, and 25 mm fluid containing umbilical hernia, no signs of incarceration. However per radiology, not enough fluid to be drained safely. Afebrile, no leukocytosis, however will treat as SBP given ascites. Revisit paracentesis tomorrow. CT showed ? Continue CEFTRIAXONE 2 mg daily 5-7 days (02/22 to [present]) ? Paracentesis with fluid analysis ? Pending blood culture Acute on chronic normocytic anemia Hgb 11.7, baseline 13.9. No signs or symptoms of upper or lower GI bleed. ? Pending FOBT ? Pending iron studies History CVA CAD s/p CABG History of above. Denies current chest pain. Normal troponin. No acute ST changes. ? Continued home ASPIRIN 81 mg daily ? Continued home ATORVASTATIN 80 mg HS Hx of DVT Has bilateral lower extremity swelling on exam. Pulses intact. Given history of DVT and increased risk secondary to her cirrhosis, will order venous Doppler. ? Pending venous Doppler Alcohol dependency METHAMPHETAMINE use ? Pending alcohol level ? Consult on drug use cessation Health maintenance Diet: NPO GI prophylaxis: PROTONIX DVT prophylaxis: SCD Antibiotics: CEFTRIAXONE CODE STATUS: Full code Disposition: Pending workup Attending Provider Attestation/Addendum I have examined the patient, reviewed labs and imaging findings, discussed the case with the resident(s), and reviewed entered orders. I agree with the plan of care as outlined in this note, with these additional summaries/recommendations: Patient is a 43-year-old male with a medical history of CAD, ME status post CABG, CVA, hypertension, CHF, hyperlipidemia, cirrhosis, substance abuse, and history of deep vein thrombosis who presents to [facility] emergency department on 02/23/2024 with chief complaints of abdominal pain and malaise. # Acute encephalopathy Most likely secondary to medications received in the ED versus substance abuse versus alcohol intoxication versus hepatic encephalopathy Plan: Order CT head, U tox, alcohol level, ammonia. Non-Pharm measures to prevent delirium # Hyperkalemia # Acute kidney injury # Non-anion gap metabolic acidosis VIOLETA likely secondary to prerenal azotemia in the setting of abdominal pain and poor oral intake On admission creatinine 1.6, BUN 39, and potassium 5.7 Plan: Given sodium bicarb in the ED and calcium gluconate. Stat repeat potassium ordered. Given IV fluids in ED. Repeat renal panel in AM. Avoid nephrotoxic agents and renally dose medications. # Cirrhosis # Fluid overload MELD-NA score 19 points indicating 3 to 4% 90-day mortality Child-Bonds score 6 points indicating child class A with life expectancy of 15 to 20 years and abdominal surgery Vinnie operative mortality of 10% Daily LFT, platelet, INR, sodium Volume management: 1 dose of Lasix this evening and then will resume Lasix twice daily plus spironolactone Ascites: Imaging findings discussed with IR and not enough fluid to drain No more than 2 g Tylenol per day Low-sodium diet, fluid restriction Plan: Avoid hepatotoxic agents. Order echocardiogram. Diuresis and repeat labs as above. #CAD #Hx of ME s/p CABG #CHF Plan: Order lipid panel. Continue home atorvastatin 80 mg p.o. at bedtime and aspirin 81 mg p.o. daily. Hold home Entresto in the setting of VIOLETA. Echocardiogram ordered. # Normocytic anemia Plan: Order FOBT and iron panel. Daily hematology panel. # Diabetes mellitus type 2 Order A1C Plan: Continue insulin sliding scale with Accu-Cheks. Order A1c. Target blood sugar of 140-[address] Little
[2024-02-23 18:08] LABS: Alcohol, Blood Medical < 3.0 mg/dL (0-10.0)
[2024-02-23 18:11] LABS: Potassium 6.4 mMol/L (3.4-5.1)
[2024-02-23] MEDS: LACTULOSE SYRUP 20 GM/30 ML UDC 10 GM PO (18:19)
[2024-02-23] MEDS: CALCIUM CHLORIDE 10% INJ 10 ML SYRG IV (18:26)
[2024-02-23 18:38] LABS: Lactate (Lactic Acid) 0.7 mMol/L (0.4-2.0)
[2024-02-23] MEDS: SOD POLYSTYRENE SULFON SUSP 15 GM/60 ML BTL PO (18:44)
[2024-02-23 19:04] LABS: Amphetamine/Methamp Scrn,U Positive (Negative); Barbiturate Screen,Urine Negative (Negative); Benzodiazepines Screen,Urine Negative (Negative); Benzoylecgonine Screen, Ur Negative (Negative); Fentanyl Screen,Urine Negative (Negative); Opiate Screen,Urine Positive (Negative); THC Screen,Urine Negative (Negative)
[2024-02-23 19:24] VITALS: BP 155/116; PULSE 64; RESP 22; O2SAT 100
[2024-02-23 19:51] LABS: Alanine Aminotransferase 19 U/L (10-49); Alkaline Phosphatase 139 U/L (46-116); Anion Gap 9 (7-16); Aspartate Amino Transferase 30 U/L (0-34); BUN/Creatinine Ratio 24 Ratio (12-20); Bilirubin,Total 1.3 mg/dL (0.3-1.2); Blood Urea Nitrogen 39 mg/dL (9-23); Carbon Dioxide 20.5 mMol/L (20.0-31.0); Chloride 107 mMol/L (98-107); Creatinine (Component) 1.6 mg/dL (0.6-1.3); Osmolality,Calculated 277 (275-295); Potassium 5.2 mMol/L (3.4-5.1); Sodium 136 mMol/L (136-145); eGFR 55 See Note
[2024-02-23 19:53] LABS: Glucose 34 mg/dL (74-106)
[2024-02-23 20:12] LABS: Hepatitis A Antibody IgM Non Reactive (Non React); Hepatitis B Core Antibody IgM Non Reactive (Non React); Hepatitis B Surface Antigen Non Reactive (Non React); Hepatitis C Antibody Non Reactive (Non React)
[2024-02-23 20:58] LABS: Ferritin 68 ng/mL (10.5-307.3); Iron 40 mcg/dL (65-175); Percent Iron Saturation 12 % (20-55); Total Iron Binding Capacity 331 mcg/dL (250-425); Unsaturated Iron Binding 291 (225-295)
[2024-02-23] MEDS: ATORVASTATIN CALCIUM 20 MG TABLET 80 MG PO (21:09)
[2024-02-23] MEDS: PANTOPRAZOLE INJ 40 MG VIAL IVP (21:09)
[2024-02-24] VITALS (10 sets, daily range): BP systolic 120–138; BP diastolic 55–96; PULSE 57–88; RESP 15–20; TEMP 36–36.2; O2SAT 92–100
--- NOTE | 2024-02-24 | XR_ITS ---
Examination: Retroperitoneal ultrasound, complete Technique: Multiple high resolution grayscale images of the retroperitoneum obtained, including kidneys and bladder. Exam date and time:February 24, 2024 1640 hours INDICATIONS: Acute renal insufficiency today, patient unable to void FINDINGS: Right kidney 9.9 x 5.7 x 5.6 cm renal cortex 1.8 cm Left kidney 10.6 x 5.8 x 4.9 cm cortex 2.0 cm Mild bilateral renal parenchymal scar formation No hydronephrosis No bladder mass or bladder calculi Bladder prevoid volume 89 cc IMPRESSION: Bilateral renal cortical thinning Mild bilateral renal parenchymal scar formation
--- NOTE | 2024-02-24 03:14 | PC.RT ---
RT in room to suction pt nares per Dr. Tsai due to nasal congestion. Pt told RT his nose was dry but to try to suction. PT was found on 5LPM non humidified NC. Suction yielded no secretions. Humidifer added to nasal cannula.
[2024-02-24 05:52] LABS: Basophils # (Auto) 0.1 Thou/mm3 (0.0-0.2); Basophils % (Auto) 1 % (0-2.5); Eosinophils # (Auto) 0.2 Thou/mm3 (0.0-0.5); Eosinophils % (Auto) 2 % (0-10); Hematocrit 38.6 % (41.0-53.0); Hemoglobin 12.2 g/dL (13.5-16.0); Immature Granulocytes % (Auto) 0 % (0-0); Immature Granulocytes Auto 0.01 Thou/mm3 (0.00-0.00); Lymphocytes # (Auto) 0.7 Thou/mm3 (1.0-4.8); Lymphocytes % (Auto) 11 % (10-50); Mean Corpuscular HGB Conc 31.6 g/dl (31.0-37.0); Mean Corpuscular Hemoglobin 29.3 pg (25.0-35.0); Mean Corpuscular Volume 93 fL (80-100); Monocytes # (Auto) 0.5 Thou/mm3 (0.0-0.8); Monocytes % (Auto) 8 % (0-12); Neutrophils # (Auto) 5.2 Thou/mm3 (1.8-7.7); Neutrophils % (Auto) 78 % (37-80); Nucleated Red Blood Cell % 0 /100 WBC (0); Platelet Count 238 Thou/mm3 (140-440); RDW Standard Deviation 57.8 fL (35.1-43.9); Red Blood Count 4.16 Miln/mm3 (4.50-5.90); White Blood Count 6.6 Thou/mm3 (3.8-10.6)
[2024-02-24 06:39] LABS: Alanine Aminotransferase 18 U/L (10-49); Albumin, Serum 3.9 gm/dL (3.5-5.0); Alkaline Phosphatase 138 U/L (46-116); Anion Gap 10 (7-16); Aspartate Amino Transferase 28 U/L (0-34); BUN/Creatinine Ratio 24 Ratio (12-20); Bilirubin,Total 1.3 mg/dL (0.3-1.2); Blood Urea Nitrogen 40 mg/dL (9-23); Calcium 9.3 mg/dL (8.3-10.6); Calcium (Corrected) 9.4 mg/dL (8.5-10.1); Carbon Dioxide 19.9 mMol/L (20.0-31.0); Cardiac Risk Estimate 3.1 RATIO (4.0-6.7); Chloride 105 mMol/L (98-107); Cholesterol 107 mg/dL (132-200); Creatinine (Component) 1.7 mg/dL (0.6-1.3); Free T4 (Free Thyroxine) 1.23 ng/dL (0.89-1.76); Globulin 4.1 gm/dL (2.3-3.5); Glucose 79 mg/dL (74-106); HDL Cholesterol 35 mg/dL (40-60); LDL Cholesterol,Calculated 58 mg/dL (0-130); Magnesium 1.7 mg/dL (1.6-2.6); Osmolality,Calculated 278 (275-295); Phosphorous 5.9 mg/dL (2.4-5.1); Sodium 135 mMol/L (136-145); Triglycerides 68 mg/dL (30-150); eGFR 51 See Note
[2024-02-24 06:42] LABS: Potassium 6.2 mMol/L (3.4-5.1)
--- NOTE | 2024-02-24 06:54 | EKG_ITS ---
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
--- NOTE | 2024-02-24 07:23 | PD.RESPRO ---
Documentation for date of: 02/24/24 Subjective Subjective Interval history: No acute overnight events. Earlier this morning he was somnolent, difficult to examine secondary to drowsiness. This afternoon he was awake, eating sandwich at bedside, alert and oriented x 4. Tolerating oral intake without nausea or vomiting. States abdominal pain has resolved. Denies new complaints. Denies fever, chills, headaches, chest pain, sob, cough, GI or urinary symptoms. Exam Vital Signs Temp Pulse Resp BP Pulse Ox O2 Del Method O2 Flow Rate 97.0 F 66 18 120/55 L 100 Nasal Cannula 5 02/24/24 04:00 02/24/24 04:00 02/24/24 04:00 02/24/24 04:00 02/24/24 04:00 02/24/24 04:00 02/24/24 04:00 Narrative Exam GENERAL Obese, anasarcous, somnolent, on 6 L NC HEENT NCAT.?ANI. Oral mucosa is moist. Patent Nares NECK Supple, nontender, no thyromegaly, no meningismus, no JVD, no step offs CHEST RRR, no m/g/r Coarse breath sounds bilaterally, no wheezing. Atraumatic, nontender, no crepitus, symmetrical expansion. ABDOMEN Distended, positive fluid shift, striations, erythematous, nontender, no guarding or rebound tenderness. Umbilical hernia noted on exam. Bowel sounds presents EXTREMITIES 1+ bilateral lower extremity edema extending above the knee, tender to palpation, erythematous. SKIN Warm and dry, mild scleral icterus, no jaundice NEUROMUSCULAR No lumbar or midline, no CVA, no paraspinal muscle spasm or tenderness. Moves all 4 extremities well, with full ROM and good CSM. A&Ox3. No focal neurologic deficits. PSYCHIATRY Somnolence, difficult to arouse, cooperative, no SI or HI or hallucinations. Objective Labs 02/26/24 05:35 02/26/24 10:43 Labs: Laboratory Results - last 24 hr 02/23/24 02/23/24 02/23/24 10:21 16:00 16:57 WBC 6.7 RBC 3.99 L Hgb 11.7 L Hct 36.7 L MCV 92 MCH 29.3 MCHC 31.9 RDW Std Deviation 56.5 H Plt Count 241 Neut % (Auto) 77 Lymph % (Auto) 11 Sac % (Auto) 9 Eos % (Auto) 2 Baso % (Auto) 1 Neut # (Auto) 5.2 Lymph # (Auto) 0.8 L Sac # (Auto) 0.6 Eos # (Auto) 0.2 Baso # (Auto) 0.1 Immature Gran # (Auto) 0.02 H Absolute Nucleated RBC 0.00 Immature Gran % 0 Nucleated RBC % 0 Puncture Site ABG pH ABG pCO2 ABG pO2 ABG HCO3 ABG O2 Saturation ABG Base Excess Oxygen Liter Flow FiO2 Sodium 132 L Potassium 5.7 H Chloride 105 Carbon Dioxide 17.1 L Anion Gap 10 BUN 39 H Creatinine 1.6 H Estim Creat Clear Calc Not Performed. eGFR 55 L BUN/Creatinine Ratio 24 H Glucose [address] Glu mg/dL Hemoglobin A1c Calculated Osmolality 276 Lactic Acid Calcium 8.8 Corrected Calcium 9.0 Phosphorus Magnesium Iron TIBC Iron Saturation Unsat Iron Binding Ferritin Total Bilirubin 1.2 AST 24 ALT 17 Alkaline Phosphatase 144 H Ammonia 46 H Troponin I B-Natriuretic Peptide 1672 H* Total Protein 7.6 Albumin 3.8 Globulin 3.8 H Albumin/Globulin Ratio 1.0 L Triglycerides Cholesterol LDL Cholesterol, Calc HDL Cholesterol Cholesterol/HDL Ratio Lipase 53 TSH Free T4 Ur Collection Type Clean Catch Urine Color Yellow Urine Clarity Clear Urine pH 5.5 Ur Specific [place] 1.024 Urine Protein 3+ A Urine Glucose (UA) Trace Urine Ketones Negative Urine Blood Trace Urine Nitrite Negative Urine Bilirubin Negative Urine Urobilinogen (Auto) 2.0 Ur Leukocyte Esterase Negative Urine RBC 2 Urine WBC 3 Ur Squamous Epith Cells < 1 Urine Bacteria None Hyaline Casts < 1 Ur Culture Indicated? Not Indicated Urine Opiates Screen Positive A Urine Fentanyl Screen Negative Ur Barbiturates Screen Negative U Amphetamin/Meth Scrn Positive A U Benzodiazepines Scrn Negative U Cocaine Metab Screen Negative U Marijuana (THC) Screen Negative Ethyl Alcohol Hepatitis A IgM Ab Hep Bs Antigen Hep B Core IgM Ab Hepatitis C Antibody 02/23/24 02/23/24 02/23/24 17:08 17:16 18:25 WBC RBC Hgb Hct MCV MCH MCHC RDW Std Deviation Plt Count Neut % (Auto) Lymph % (Auto) Sac % (Auto) Eos % (Auto) Baso % (Auto) Neut # (Auto) Lymph # (Auto) Sac # (Auto) Eos # (Auto) Baso # (Auto) Immature Gran # (Auto) Absolute Nucleated RBC Immature Gran % Nucleated RBC % Puncture Site Right Radial ABG pH 7.26 L ABG pCO2 39 ABG pO2 142 H ABG HCO3 17 L ABG O2 Saturation 100 H ABG Base Excess -9 L Oxygen Liter Flow 4 FiO2 21 Sodium Potassium 6.4 H* D Chloride Carbon Dioxide Anion Gap BUN Creatinine Estim Creat Clear Calc eGFR BUN/Creatinine Ratio Glucose Estimated Ave Glu mg/dL 131 Hemoglobin A1c 6.2 H Calculated Osmolality Lactic Acid 0.7 Calcium Corrected Calcium Phosphorus Magnesium Iron 40 L TIBC 331 Iron Saturation 12 L Unsat Iron Binding 291 Ferritin 68 Total Bilirubin AST ALT Alkaline Phosphatase Ammonia Troponin I 0.030 B-Natriuretic Peptide Total Protein Albumin Globulin Albumin/Globulin Ratio Triglycerides Cholesterol LDL Cholesterol, Calc HDL Cholesterol Cholesterol/HDL Ratio Lipase TSH Free T4 Ur Collection Type Urine Color Urine Clarity Urine pH Ur Specific [place] Urine Protein Urine Glucose (UA) Urine Ketones Urine Blood Urine Nitrite Urine Bilirubin Urine Urobilinogen (Auto) Ur Leukocyte Esterase Urine RBC Urine WBC Ur Squamous Epith Cells Urine Bacteria Hyaline Casts Ur Culture Indicated? Urine Opiates Screen Urine Fentanyl Screen Ur Barbiturates Screen U Amphetamin/Meth Scrn U Benzodiazepines Scrn U Cocaine Metab Screen U Marijuana (THC) Screen Ethyl Alcohol < 3.0 Hepatitis A IgM Ab Non Reactive Hep Bs Antigen Non Reactive Hep B Core IgM Ab Non Reactive Hepatitis C Antibody Non Reactive 02/23/24 02/24/24 19:04 05:30 WBC 6.6 RBC 4.16 L Hgb 12.2 L Hct 38.6 L MCV 93 MCH 29.3 MCHC 31.6 RDW Std Deviation 57.8 H Plt Count 238 Neut % (Auto) 78 Lymph % (Auto) 11 Sac % (Auto) 8 Eos % (Auto) 2 Baso % (Auto) 1 Neut # (Auto) 5.2 Lymph # (Auto) 0.7 L Sac # (Auto) 0.5 Eos # (Auto) 0.2 Baso # (Auto) 0.1 Immature Gran # (Auto) 0.01 H Absolute Nucleated RBC 0.00 Immature Gran % 0 Nucleated RBC % 0 Puncture Site ABG pH ABG pCO2 ABG pO2 ABG HCO3 ABG O2 Saturation ABG Base Excess Oxygen Liter Flow FiO2 Sodium 136 135 L Potassium 5.2 H D 6.2 H* D Chloride 107 105 Carbon Dioxide 20.5 19.9 L Anion Gap 9 10 BUN 39 H 40 H Creatinine 1.6 H 1.7 H Estim Creat Clear Calc Not Performed. Not Performed. eGFR 55 L 51 L BUN/Creatinine Ratio 24 H 24 H Glucose 34 L* D [address] Glu mg/dL Hemoglobin A1c Calculated Osmolality 277 278 Lactic Acid Calcium 10.0 9.3 Corrected Calcium 10.0 9.4 Phosphorus 5.9 H Magnesium 1.7 Iron TIBC Iron Saturation Unsat Iron Binding Ferritin Total Bilirubin 1.3 H 1.3 H AST 30 28 ALT 19 18 Alkaline Phosphatase 139 H 138 H Ammonia Troponin I B-Natriuretic Peptide Total Protein 8.0 8.0 Albumin 4.0 3.9 Globulin 4.0 H 4.1 H Albumin/Globulin Ratio 1.0 L 1.0 L Triglycerides 68 Cholesterol 107 L LDL Cholesterol, Calc 58 HDL Cholesterol 35 L Cholesterol/HDL Ratio 3.1 L Lipase TSH 6.30 H Free T4 1.23 Ur Collection Type Urine Color Urine Clarity Urine pH Ur Specific [place] Urine Protein Urine Glucose (UA) Urine Ketones Urine Blood Urine Nitrite Urine Bilirubin Urine Urobilinogen (Auto) Ur Leukocyte Esterase Urine RBC Urine WBC Ur Squamous Epith Cells Urine Bacteria Hyaline Casts Ur Culture Indicated? Urine Opiates Screen Urine Fentanyl Screen Ur Barbiturates Screen U Amphetamin/Meth Scrn U Benzodiazepines Scrn U Cocaine Metab Screen U Marijuana (THC) Screen Ethyl Alcohol Hepatitis A IgM Ab Hep Bs Antigen Hep B Core IgM Ab Hepatitis C Antibody ABG Interpretation ABG results: 02/23/24 17:08 ABG pH 7.26 L ABG pCO2 39 ABG pO2 142 H ABG HCO3 17 L ABG O2 Saturation 100 H ABG Base Excess -9 L Quality Measures Quality Measures none Assessment & Plan Assessment Current Active Medications: Generic Name Dose Route Start Last Admin Trade Name Freq PRN Reason Stop Dose Admin Aspirin 81 mg 02/24/24 09:00 Aspirin Ec 81 Mg Tabec PO 03/25/24 08:59 QDAY JUDSON Atorvastatin Calcium 80 mg 02/23/24 21:00 02/23/24 21:09 Atorvastatin Calcium 20 Mg Tablet PO 03/24/24 20:59 80 mg HS JUDSON Administration Dextrose 25 ml 02/23/24 16:54 Dextrose 50%-Water Inj 50 Ml Syringe IV 03/24/24 16:53 Q15MIN PRN BG 50-70 responsive npo pt Dextrose 50 ml 02/23/24 16:54 02/23/24 19:27 Dextrose 50%-Water Inj 50 Ml Syringe IV 03/24/24 16:53 50 ml Q15MIN PRN Administration BG <50 OR BG <70 & pt unresponsive Dextrose 50 ml 02/24/24 07:35 Dextrose 50%-Water Inj 50 Ml Syringe IV 02/24/24 07:36 X1 ONE Furosemide 40 mg 02/24/24 09:00 Furosemide Inj 10 Mg/Ml 4ml Vial IVP 03/25/24 08:59 BID JUDSON Glucagon 1 mg 02/23/24 16:54 Glucagon Inj 1 Mg Vial IM Q15MIN PRN BG <70, and no IV access Ceftriaxone Sodium 2 gm/ 50 mls @ 100 mls/hr 02/23/24 17:00 02/23/24 19:41 Sodium Chloride IV 03/01/24 16:59 Infused QDAY [facility] Infusion Insulin Human Lispro 0 unit 02/24/24 07:30 Insulin Lispro (Admelog) 1 Unit/0.01 Ml Unit SC 03/25/24 07:29 AC [facility] Protocol Ondansetron HCl 4 mg 02/23/24 16:56 Ondansetron Inj 2 Mg/Ml Inj 2 Ml IV 03/24/24 16:55 Q6H PRN NAUSEA OR VOMITING Protocol Oxycodone/Acetaminophen 1 tab 02/23/24 16:56 Oxycodone/Apap 5/325 Tablet PO 02/28/24 16:55 Q6H PRN PAIN SCALE 4-6 (Moderate Pantoprazole Sodium 40 mg 02/23/24 21:00 02/23/24 21:09 Pantoprazole Inj 40 Mg Vial IVP 03/24/24 20:59 40 mg BID JUDSON Administration Spironolactone 25 mg 02/24/24 09:00 Spironolactone 25 Mg Tablet PO 03/25/24 08:59 QDAY [facility] Plan In summary: 43-year-old male with PMHx of CHF, CAD s/p CABG, liver cirrhosis, HTN, diabetes, previous DVT, alcohol dependency, METHAMPHETAMINE, presenting with abdominal pain. Admitted for liver cirrhosis, anasarcous, CHF exacerbation, and VIOLETA. Appreciate recommendations from Nephrology team. Acute encephalopathy (resolved) Alcohol dependency DDx: METH withdrawal, ANALGESICS, less likely hepatic encephalopathy. Patient somnolent on exam, ANOx3. Likely related to MORPHINE and LORAZEPAM given for pain earlier. Per family at bedside, he had normal mentation prior. Ammonia 46, still low suspicion for hepatic encephalopathy but will give LACTULOSE. No signs of withdrawal, seizure or hallucination. Alcohol level normal. He is alert and awake this morning. Having regular conversation. Appears at baseline. No signs of encephalopathy or altered mental status. ? S/p LACTULOSE 10 mg x 1 ? Avoid oversedation Hyperkalemia Likely secondary to VIOLETA. Admission potassium 5.7. No related T wave abnormalities on EKG. initially improved with management, however potassium was 6.2 overnight. We gave more INSULIN, CALCIUM GLUCONATE and KAYEXALATE. EKG showing low voltage and tall T waves. Patient asymptomatic without chest pain. ? CALCIUM GLUCONATE, KAYEXALATE, INSULIN as needed ? Pending repeat potassium at noon Liver cirrhosis Anasarca History of liver cirrhosis. Abdominal striae, anasarca, mild scleral icterus on exam. CT shows cirrhosis, moderate ascites and anasarcous. Normal liver synthetic and enzyme. Normal INR, total bili, LFTs, ALBUMIN. Ammonia 46. Radiology stated not enough ascitic fluid to be drained safely. Adding diuresis in settings of worsening VIOLETA. CHILD-KELLEY 7. MELD 14 indicated 6% 3-month mortality rate ? Hold LASIX 40 IV BID ? Hold home SPIRONOLACTONE 25 mg daily ? Continue daily ALBUMIN ? Pending paracentesis with fluid analysis CHF exacerbation History of CHF and medication noncompliance. 2+ bilateral lower extremity edema, coarse breath sounds on exam with bibasilar crackles. BNP 1672. CXR showed mild-mod CHF. CT showed vascular congestion. TSH 6.3, T4 1.23, TG 68, cholesterol 107, LDL 58, A1c 6.2 ? Hold LASIX and SPIRONOLACTONE as above ? Strict HARMONY's ? Pending echocardiogram Prerenal VIOLETA Likely in settings of CHF exacerbation versus cirrhosis. CR 1.6, BUN 39, GFR 55. No history of CKD. Anticipate improvement with diuresis. CR 1.7. ? Holding diuresis, encouraging oral fluids ? Daily ALBUMIN as above ? Renally dose meds, avoid overdiuresis and NEPHROTOXINS ? Daily CMP ? Pending Nephrology recs. Acute abdominal pain DDx: SBP, constipation, gastritis, umbilical hernia Complains of 3 weeks of abdominal pain and constipation. Abdomen distended and tender diffusely with mild guarding on exam. CT showed ascites, and 25 mm fluid containing umbilical hernia, no signs of incarceration. However per radiology, not enough fluid to be drained safely. Afebrile, no leukocytosis, however will treat as SBP given ascites. Revisit paracentesis tomorrow. ? Continue CEFTRIAXONE 2 mg daily 5-7 days (02/22 to [present]) ? Paracentesis with fluid analysis ? Pending blood culture Acute on chronic normocytic anemia (improving) Admission Hgb 11.7, baseline 13.9. No signs or symptoms of upper or lower GI bleed. Hgb improving. ? Pending FOBT ? Pending iron studies History CVA CAD s/p CABG History of above. Denies current chest pain. Normal troponin. No acute ST changes. ? Continued home ASPIRIN 81 mg daily ? Continued home ATORVASTATIN 80 mg HS Hypoglycemia Diabetes A1c 6.2. Hypoglycemic overnight with GLUCOSE 34, improved with management. Currently, GLUCOSE 84. We were able to get additional history from patient now that he is alert. He was prescribed INSULIN however has not been taking it. He states it makes him tired. ? INSULIN sliding scale ? Accu-Cheks ? Avoid hypoglycemia Hx of DVT Has bilateral lower extremity swelling on exam. Pulses intact. Given history of DVT and increased risk secondary to her cirrhosis. Venous Doppler bilateral lower extremity negative. ? SCD prophylaxis Alcohol dependency METHAMPHETAMINE use ? Pending alcohol level ? Consult on drug use cessation Incidental Findings: CT showed Grade 1 spondylolisthesis L5 on S1 with moderate disc narrowing L5-S1. Patient otherwise aysmptomatic. Normal neurological exam. ? Recommended outpatient PCP follow-up Health maintenance Diet: NPO GI prophylaxis: PROTONIX DVT prophylaxis: SCD Antibiotics: CEFTRIAXONE CODE STATUS: Full code Disposition: Pending workup Patient case was discussed with attending, Waldemar Little MD and senior residents Dr. Baltazar and Dr. De La Rosa. Chelita Corral, PGYI Senior Resident Attestation: Patient was still somnolent this morning, but ANO x 3. Overnight, patient had multiple episodes of hypoglycemia and was given IV D50 W. He denied any abdominal pain, chest pain, SOB, fever or chills. Vitals were stable. Physical exam was significant for 1-2+ bilateral below-knee pitting edema, mild ascites. Labs were significant for potassium of 6.2, and after treatment with insulin, dextrose, and Kayexalate, potassium trended down to 4.9, but repeat potassium around 1 PM was 5.5, and was again given same treatment. We held Lasix as his VIOLETA is likely secondary to dehydration due to poor oral intake as he has been feeling weak for past couple of days. Business Office Associate Dr. Michelle was consulted for hyperkalemia and VIOLETA. I discussed with and supervised the fall intern physician involved in the care of this patient. I personally saw and examined the patient and discussed the assessment and plan with the entire medicine team, including my attending. I agree with the assessment and plan as documented above. Taran De La Rosa MD PGY2 Internal Medicine Attending Provider Attestation/Addendum I have examined the patient, reviewed labs and imaging findings, discussed the case with the resident(s), and reviewed entered orders. I agree with the plan of care as outlined in this note, with these additional summaries/recommendations: Patient is a 43-year-old male with a medical history of CAD, NC status post CABG, CVA, hypertension, CHF, hyperlipidemia, cirrhosis, substance abuse, and history of deep vein thrombosis who presents to [facility] emergency department on 02/23/2024 with chief complaints of abdominal pain and malaise. # Acute encephalopathy- Resolved Most likely secondary to medications received in the ED versus substance abuse versus alcohol intoxication versus hepatic encephalopathy Plan: Acute encephalopathy resolved. Patient is alert and oriented x 3. # Hyperkalemia # Acute kidney injury # Non-anion gap metabolic acidosis VIOLETA likely secondary to prerenal azotemia in the setting of abdominal pain and poor oral intake On admission creatinine 1.6, BUN 39, and potassium 5.7 Plan: Potassium found to be 6.2 this morning and received hyper K cocktail with improvement of potassium to 4.9. Repeat potassium this afternoon and if elevated again we will consult nephrology. Avoid nephrotoxic agents and renally dose medications. # Cirrhosis # Fluid overload MELD-NA score 19 points indicating 3 to 4% 90-day mortality Child-Kelley score 6 points indicating child class A with life expectancy of 15 to 20 years and abdominal surgery Vinnie operative mortality of 10% Daily LFT, platelet, INR, sodium Volume management: 1 dose of Lasix this evening and then will resume Lasix twice daily plus spironolactone Ascites: Imaging findings discussed with IR and not enough fluid to drain No more than 2 g Tylenol per day Low-sodium diet, fluid restriction Plan: Avoid hepatotoxic agents. Order echocardiogram. Diuresis and repeat labs as above. #CAD #Hx of NC s/p CABG #CHF Plan: Order lipid panel. Continue home atorvastatin 80 mg p.o. at bedtime and aspirin 81 mg p.o. daily. Hold home Entresto in the setting of VIOLETA. Echocardiogram ordered. # Normocytic anemia Plan: Order FOBT and iron panel. Daily hematology panel. # Diabetes mellitus type 2 Order A1C Plan: Continue insulin sliding scale with Accu-Cheks. Order A1c. Target blood sugar of 140-[address] Little
[2024-02-24] MEDS: CALCIUM CHLORIDE 10% INJ 10 ML SYRG IV (07:43)
[2024-02-24] MEDS: DEXTROSE 50%-WATER INJ 50 ML SYRINGE IV ×5 (07:43→15:11)
[2024-02-24] MEDS: SOD POLYSTYRENE SULFON SUSP 15 GM/60 ML BTL 30 GM PO (07:43)
[2024-02-24] MEDS: INSULIN HUM REGULAR 1 UNIT/0.01 ML (PER UNIT) 5 UNIT IV ×2 (07:51→15:12)
[2024-02-24] MEDS: FUROSEMIDE INJ 10 MG/ML 4ML VIAL 40 MG IVP (08:42)
[2024-02-24] MEDS: PANTOPRAZOLE INJ 40 MG VIAL IVP ×2 (08:42→20:19)
[2024-02-24] MEDS: cefTRIAXone 2 GM in SODIUM CHLORIDE 0.9% (P) 50 ML IV (08:43)
[2024-02-24] MEDS: ASPIRIN EC 81 MG TABEC PO (09:20)
[2024-02-24 09:54] LABS: Potassium 4.9 mMol/L (3.4-5.1)
--- NOTE | 2024-02-24 10:19 | PC.SS ---
Patient is altered. Admitted for acute decomponsated liver cihhrosis. Parter and patient's brother listed on demographics. Progress notes indicates alcohol dependency and tox report showed meth positive. Patient on 5. SS will follow up with patient once alert/oriented. SS attempted to contact girlfriend but received voice message.
[2024-02-24] MEDS: ALBUMIN HUMAN 25% IVPB 25 GM/100 ML BTL IV (11:32)
--- NOTE | 2024-02-24 12:00 | XR_ITS ---
Examination: Abdomen sonogram, Limited Date and time of exam: February 24, 2024 1208 hours INDICATIONS: Cirrhosis, increasing ascites and abdominal distention this week Technique: Real-time ricci scale transabdominal sonographic images of the upper abdomen obtained. Findings: Minimal ascitic fluid IMPRESSION: Minimal ascitic fluid
[2024-02-24 13:49] LABS: Potassium 5.5 mMol/L (3.4-5.1)
--- NOTE | 2024-02-24 14:43 | EKG_ITS ---
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: DENISHA : 1980 Requested By: Taran De La Rosa Order Number: [id number] Reading MD: Taran De La Rosa Measurements Intervals [place] Rate: 67 P: 47 MS: 171 QRS: 134 QRSD: 104 T: 20 QT: 403 QTc: 426 Interpretive Statements SINUS RHYTHM WITH OCCASIONAL VENTRICULAR PREMATURE COMPLEXES MARKED RIGHT AXIS DEVIATION LOW QRS VOLTAGE IN EXTREMITY LEADS ANTEROLATERAL MYOCARDIAL INFARCTION , PROBABLY OLD Compared to ECG 02/24/2024 08:23:59 Ventricular premature complex(es) now present Atrial fibrillation no longer present Myocardial infarct finding still present /store/S0/[id number]
[2024-02-24] MEDS: SOD POLYSTYRENE SULFON SUSP 15 GM/60 ML BTL PO (15:10)
[2024-02-24] MEDS: CALCIUM GLUCONATE 10% INJ 1 GM/10 ML VIAL IV (15:10)
--- NOTE | 2024-02-24 16:50 | ESCONSULT_ITS ---
HPI Data of Consult Consult date: 02/24/24 Requesting Physician: Waldemar Little MD Admitting Provider: Waldemar Little MD Attending Provider: Waldemar Little MD Primary Care Provider: Olaf Hernandez PA-C Consult Narrative Reason for consult: VIOLETA, hyperkalemia History of present illness: David Martel is a 43-year-old male with a past medical history of CHF, CAD status post CABG ( under Dr. Millan), liver cirrhosis, hypertension, insulin- dependent diabetes mellitus x20 yrs, history of DVT, alcohol dependence, and methamphetamine use who presents with abdominal pain. States that he has had abdominal pain for 3 weeks but acutely worsened the last 2 days. Also endorses some shortness of breath and does not use home oxygen and denies chest discomfort. In ED vitals showed RR 24, O2 95% on 7 L NC. Na 132, K 5.7, BUN 39, Cr 1.6 (BL 1.3), GFR 55, ammonia 46, BNP 1600. ABG showed pH 7.26, bicarb 17, pCO2 39. UA: 3+ protein. U tox: Positive for opiates and amphetamine. Admitted for management of acute encephalopathy, CHF exacerbation, hyperkalemia, and VIOLETA. Nephrology consulted for refractory hyperkalemia. 02/23: Patient seen and examined at bedside in telemetry. No acute overnight events noted. Denies muscle weakness, cramps, palpitations. EKG obtained and showed low voltages without appreciable T-wave abnormalities. Had Alvarenga placed but reported significant discomfort with red-colored urine output, and so was removed. Also states that abdominal pain has subsided since admission. Regarding hyperkalemia, recommend to hold off on use of insulin and to continue using Kayexalate instead. Will start patient on IV Bumex with strict I's/O's given volume overload status in conjunction with hyperkalemia. Additionally, given the patient presents with elevated BNP and possible CHF exacerbation patient may be cardiorenal syndrome and anticipate improvement in creatinine with diuretics. cc:: cc: Waldemar Little MD Review of Systems Review of Systems Systems Reviewed: All systems reviewed, normal except as documented Exam Vital Signs Temp Pulse Resp BP Pulse Ox O2 Del Method O2 Flow Rate 96.8 F 68 16 133/85 H 92 L Room Air 5 02/24/24 12:00 02/24/24 12:00 02/24/24 12:00 02/24/24 12:00 02/24/24 12:00 02/24/24 12:00 02/24/24 08:00 Narrative Exam General: AOx3, no acute distress, able to speak full sentences while on 5 L NC HEENT: NC/AT, mucous membranes moist, bilateral sclera anicteric Cardiovascular: regular rate and rhythm, S1/S2 present, no murmurs appreciated Pulmonary: fine crackles at bases Abdominal: distended, non-tender, no rebound/guarding Musculoskeletal: normal ROM, 2+ peripheral edema Skin: 2+ bilateral edema, chronic venous stasis changes, varicose veins in distal lower extremities, healed excoriations in upper extremities Neuro: CN II-XII intact, no focal deficits Results Labs 02/24/24 05:30 02/24/24 17:40 Labs: Short CBC 02/24/24 Range/Units 05:30 WBC 6.6 (3.8-10.6) Thou/mm3 Hgb 12.2 L (13.5-16.0) g/dL Hct 38.6 L (41.0-53.0) % Plt Count 238 (140-440) Thou/mm3 BMP 02/23/24 02/23/24 02/24/24 17:16 19:04 05:30 Sodium 136 135 L Potassium 6.4 H* D 5.2 H D 6.2 H* D Chloride 107 105 Carbon Dioxide 20.5 19.9 L BUN 39 H 40 H Creatinine 1.6 H 1.7 H Glucose 34 L* D 79 D Calcium 10.0 9.3 02/24/24 02/24/24 09:10 13:14 Sodium Potassium 4.9 D 5.5 H D Chloride Carbon Dioxide BUN Creatinine Glucose Calcium Cardiac Enzymes 02/23/24 Range/Units 17:16 Troponin I 0.030 (0.0-0.045) ng/mL Liver Function 02/23/24 02/24/24 Range/Units 19:04 05:30 Total Bilirubin 1.3 H 1.3 H (0.3-1.2) mg/dL AST 30 28 (0-34) U/L ALT 19 18 (10-49) U/L Alkaline Phosphatase 139 H 138 H (46-116) U/L Albumin 4.0 3.9 (3.5-5.0) gm/dL ABG Interpretation ABG results: 02/23/24 17:08 ABG pH 7.26 L ABG pCO2 39 ABG pO2 142 H ABG HCO3 17 L ABG O2 Saturation 100 H ABG Base Excess -9 L Quality Measures Quality Measures none Medications Home Medications and Allergies Allergies Allergy/AdvReac Type Severity Reaction Status Date / Time No Known Allergies Allergy Verified 02/04/22 19:38 Visit Medications Aspirin (Aspirin Ec 81 Mg Tabec) 81 mg PO QDAY [facility] Stop: 03/25/24 08:59 Last Admin: 02/24/24 09:20 Dose: 81 mg Atorvastatin Calcium (Atorvastatin Calcium 20 Mg Tablet) 80 mg PO HS [facility] Stop: 03/24/24 20:59 Last Admin: 02/23/24 21:09 Dose: 80 mg Dextrose (Dextrose 50%-Water Inj 50 Ml Syringe) 25 ml IV Q15MIN PRN PRN Reason: BG 50-70 responsive npo pt Stop: 03/24/24 16:53 Dextrose (Dextrose 50%-Water Inj 50 Ml Syringe) 50 ml IV Q15MIN PRN PRN Reason: BG <50 OR BG <70 & pt unresponsive Stop: 03/24/24 16:53 Last Admin: 02/23/24 19:27 Dose: 50 ml Furosemide (Furosemide Inj 10 Mg/Ml 4ml Vial) 40 mg IVP BID [facility] Stop: 03/25/24 08:59 Last Admin: 02/24/24 08:42 Dose: 40 mg Glucagon (Glucagon Inj 1 Mg Vial) 1 mg IM Q15MIN PRN PRN Reason: BG <70, and no IV access Heparin Sodium (Porcine) (Heparin Sod Inj 5000 Unit/Ml Vial) 5,000 unit SC Q8HR [facility] Stop: 03/09/24 21:59 Ceftriaxone Sodium 2 gm/ (Sodium Chloride) 50 mls @ 100 mls/hr IV QDAY [facility] Stop: 03/01/24 16:59 Insulin Human Lispro (Insulin Lispro (Admelog) 1 Unit/0.01 Ml Unit) 0 unit SC AC [facility]; Protocol Stop: 03/25/24 07:29 Last Admin: 02/24/24 11:17 Dose: Not Given Ondansetron HCl (Ondansetron Inj 2 Mg/Ml Inj 2 Ml) 4 mg IV Q6H PRN; Protocol PRN Reason: NAUSEA OR VOMITING Stop: 03/24/24 16:55 Oxycodone/Acetaminophen (Oxycodone/Apap 5/325 Tablet) 1 tab PO Q6H PRN PRN Reason: PAIN SCALE 4-6 (Moderate Stop: 02/28/24 16:55 Pantoprazole Sodium (Pantoprazole Inj 40 Mg Vial) 40 mg IVP BID JUDSON Stop: 03/24/24 20:59 Last Admin: 02/24/24 08:42 Dose: 40 mg Discontinued Medications Hydrocodone Bitart/Acetaminophen (Hydrocodone/Apap 10/325 Tab) 1 tab PO Q4HR PRN PRN Reason: PAIN SCALE 7-10 (Severe Stop: 02/28/24 16:55 Hydrocodone Bitart/Acetaminophen (Hydrocodone/Apap 5/325 Tablet) 1 tab PO Q6HR PRN PRN Reason: pain Stop: 02/28/24 17:25 Calcium Chloride (Calcium Chloride 10% Inj 10 Ml Syrg) 10 ml IV X1 ONE Stop: 02/23/24 18:14 Last Admin: 02/23/24 18:26 Dose: 10 ml Calcium Chloride (Calcium Chloride 10% Inj 10 Ml Syrg) 10 ml IV X1 ONE Stop: 02/24/24 06:51 Last Admin: 02/24/24 07:43 Dose: 10 ml Calcium Gluconate (Calcium Gluconate 10% Inj 1 Gm/10 Ml Vial) 1 gm IV X1 ONE Stop: 02/23/24 16:01 Last Admin: 02/23/24 16:20 Dose: 1 gm Calcium Gluconate (Calcium Gluconate 10% Inj 1 Gm/10 Ml Vial) 1 gm IV X1 ONE Stop: 02/24/24 14:44 Last Admin: 02/24/24 15:10 Dose: 1 gm Dextrose (Dextrose 50%-Water Inj 50 Ml Syringe) 50 ml IV X1 ONE Stop: 02/23/24 17:50 Last Admin: 02/23/24 17:54 Dose: 50 ml Dextrose (Dextrose 50%-Water Inj 50 Ml Syringe) 50 ml IV X1 ONE Stop: 02/23/24 20:49 Last Admin: 02/23/24 21:08 Dose: 50 ml Dextrose (Dextrose 50%-Water Inj 50 Ml Syringe) 50 ml IV X1 ONE Stop: 02/23/24 22:39 Last Admin: 02/23/24 23:20 Dose: 50 ml Dextrose (Dextrose 50%-Water Inj 50 Ml Syringe) 50 ml IV X1 ONE Stop: 02/24/24 07:02 Last Admin: 02/24/24 07:43 Dose: 50 ml Dextrose (Dextrose 50%-Water Inj 50 Ml Syringe) 50 ml IV X1 ONE Stop: 02/24/24 07:03 Last Admin: 02/24/24 07:54 Dose: 50 ml Dextrose (Dextrose 50%-Water Inj 50 Ml Syringe) 50 ml IV X1 ONE Stop: 02/24/24 07:36 Last Admin: 02/24/24 08:40 Dose: 50 ml Dextrose (Dextrose 50%-Water Inj 50 Ml Syringe) 50 ml IV X1 ONE Stop: 02/24/24 14:42 Last Admin: 02/24/24 15:10 Dose: 50 ml Dextrose (Dextrose 50%-Water Inj 50 Ml Syringe) 50 ml IV X1 ONE Stop: 02/24/24 14:42 Last Admin: 02/24/24 15:11 Dose: 50 ml Furosemide (Furosemide Inj 10 Mg/Ml 4ml Vial) 40 mg IVP X1 ONE Stop: 02/23/24 16:57 Last Admin: 02/23/24 17:58 Dose: 40 mg Guaifenesin (Guaifenesin Syrup 200 Mg/10 Ml Udc) 200 mg PO X1 ONE; Protocol Stop: 02/24/24 02:24 Sodium Chloride (Ns) 1,000 mls @ 125 mls/hr IV .Q8H ONE Stop: 02/23/24 18:37 Last Admin: 02/23/24 12:38 Dose: 125 mls/hr Ceftriaxone Sodium 2 gm/ (Sodium Chloride) 50 mls @ 100 mls/hr IV QDAY JUDSON Stop: 03/01/24 16:59 Last Infusion: 02/23/24 19:41 Dose: Infused Ceftriaxone Sodium 2 gm/ (Sodium Chloride) 50 mls @ 100 mls/hr IV X1 ONE Stop: 02/24/24 09:14 Last Admin: 02/24/24 08:43 Dose: 100 mls/hr Albumin Human (Albuminar-25 Ivpb) 25 gm in 100 mls @ 100 mls/hr IV X1 ONE Stop: 02/24/24 11:34 Last Admin: 02/24/24 11:32 Dose: 100 mls/hr Insulin Human Regular (Insulin Hum Regular 1 Unit/0.01 Ml (Per Unit)) 5 unit IV X1 ONE Stop: 02/23/24 16:55 Last Admin: 02/23/24 18:02 Dose: 5 unit Insulin Human Regular (Insulin Hum Regular 1 Unit/0.01 Ml (Per Unit)) 5 unit IV X1 ONE Stop: 02/23/24 18:18 Last Admin: 02/23/24 18:47 Dose: 5 unit Insulin Human Regular (Insulin Hum Regular 1 Unit/0.01 Ml (Per Unit)) 5 unit IV X1 ONE Stop: 02/24/24 07:02 Last Admin: 02/24/24 07:51 Dose: 5 unit Insulin Human Regular (Insulin Hum Regular 1 Unit/0.01 Ml (Per Unit)) 5 unit IV X1 ONE Stop: 02/24/24 14:42 Last Admin: 02/24/24 15:12 Dose: 5 unit Lactulose (Lactulose Syrup 20 Gm/30 Ml Udc) 10 gm PO X1 ONE; Protocol Stop: 02/23/24 18:02 Last Admin: 02/23/24 18:19 Dose: 10 gm Lidocaine (Lidocaine 5% 1 Patch) 1 patch TOP X1 ONE Stop: 02/24/24 00:46 Lorazepam (Lorazepam 2 Mg/Ml Vial) 2 mg IVP X1 STA Stop: 02/23/24 10:39 Last Admin: 02/23/24 10:48 Dose: 2 mg Morphine Sulfate (Morphine Sulf Inj 10 Mg/Ml Vial) 4 mg IVP X1 ONE Stop: 02/23/24 10:15 Last Admin: 02/23/24 10:31 Dose: 4 mg Ondansetron HCl (Ondansetron Inj 2 Mg/Ml Inj 2 Ml) 4 mg IV X1 ONE; Protocol Stop: 02/23/24 10:15 Last Admin: 02/23/24 10:30 Dose: 4 mg Pantoprazole Sodium (Pantoprazole Inj 40 Mg Vial) 40 mg IVP QDAY JU[facility]ON Stop: 03/24/24 16:59 Last Admin: 02/23/24 18:05 Dose: Not Given Sodium Bicarbonate (Sodium Bicarb Inj 8.4% Syr 50 Ml Syringe) 50 ml IV X1 ONE Stop: 02/23/24 16:01 Last Admin: 02/23/24 16:25 Dose: 50 ml Sodium Bicarbonate (Sodium Bicarb Inj 8.4% Syr 50 Ml Syringe) 50 ml IV X1 ONE Stop: 02/23/24 18:16 Last Admin: 02/23/24 18:28 Dose: 50 ml Sodium Chloride (Sodium Chloride Rt 10% 15 Ml Nebu) 15 ml INH X1 ONE Stop: 02/24/24 01:56 Sodium Chloride (Saline Nasal 45 Ml Btl) 1 spray NASAL X1 ONE Stop: 02/24/24 02:04 Sodium Chloride (Saline Nasal 45 Ml Btl) 1 spray NASAL X1 ONE Stop: 02/24/24 02:24 Sodium Polystyrene Sulfonate (Sod Polystyrene Sulfon Susp 15 Gm/60 Ml Btl) 15 gm PO X1 ONE Stop: 02/23/24 18:34 Last Admin: 02/23/24 18:44 Dose: 15 gm Sodium Polystyrene Sulfonate (Sod Polystyrene Sulfon Susp 15 Gm/60 Ml Btl) 30 gm PO X1 ONE Stop: 02/24/24 06:51 Last Admin: 02/24/24 07:43 Dose: 30 gm Sodium Polystyrene Sulfonate (Sod Polystyrene Sulfon Susp 15 Gm/60 Ml Btl) 15 gm PO X1 ONE Stop: 02/24/24 14:41 Last Admin: 02/24/24 15:10 Dose: 15 gm Spironolactone (Spironolactone 25 Mg Tablet) 25 mg PO QDAY JU[facility]ON Stop: 03/25/24 08:59 Assessment & Plan Plan David Martel is a 43-year-old male with a past medical history of CHF, CAD status post CABG, liver cirrhosis, hypertension, insulin-dependent diabetes mellitus, history of DVT, alcohol dependence, and methamphetamine use who is admitted for management acute encephalopathy, CHF exacerbation, hyperkalemia, and VIOLETA. Nephrology consulted for refractory hyperkalemia. #Refractory hyperkalemia #? RTA, type IV Patient has received multiple doses of insulin with D50 as well as Kayexalate. Initially presented with potassium of 5.7 that peaked at 6.4 and has continued to fluctuate. ? Recommend continued use of Kayexalate ? Hold off on insulin use for potassium-noted hypoglycemia ? Started on Bumex 2 mg IV twice daily with strict I's and O's ? Follow-up on renal ultrasound #Acute kidney injury #? Prerenal azotemia versus cardiorenal syndrome BUN/creatinine ratio of 24 is indicative of prerenal azotemia in setting of CHF exacerbation with BNP of 1600. ? Bumex as above #Acute encephalopathy, resolved #Alcohol dependence #Methamphetamine use #Liver cirrhosis #Anasarca #CHF exacerbation #Normocytic anemia #CAD status post CABG #Type 2 diabetes mellitus, insulin-dependent #History of DVT ? Continue management per primary team ----- Plan discussed with attending physician Dr. Miguel Angel Bess MD PGY-1 Internal Medicine Attending Provider Attestation/Addendum Patient seen and examined with resident physician Dr. Gonzalez. Note reviewed, agree with findings and recommendations. Clinically patient looks to be in fluid overload. Patient with significant hyperkalemia (at home he is on Aldactone, Entresto, KCL)-suspect med related versus underlying RTA type IV, diabetes for more than 20 years. Long conversation with family regarding cardiorenal syndrome. Patient positive for methamphetamine on admission. Extensive cardiac history.Potassium 5.5 with no EKG changes. Add Kayexalate if needed. Will switch lasix to bumex. Thank you Waldemar for allowing me to participate in the care of Mr. Martel
[2024-02-24 18:32] LABS: Anion Gap 8 (7-16); BUN/Creatinine Ratio 21 Ratio (12-20); Blood Urea Nitrogen 37 mg/dL (9-23); Calcium 9.4 mg/dL (8.3-10.6); Carbon Dioxide 20.7 mMol/L (20.0-31.0); Chloride 104 mMol/L (98-107); Creatinine (Component) 1.8 mg/dL (0.6-1.3); Glucose 121 mg/dL (74-106); Osmolality,Calculated 276 (275-295); Potassium 5.1 mMol/L (3.4-5.1); Sodium 133 mMol/L (136-145); eGFR 48 See Note
[2024-02-24] MEDS: BUMETANIDE INJ 0.25 MG/ML VIAL 4 ML 2 MG IVP (20:18)
[2024-02-24] MEDS: ATORVASTATIN CALCIUM 20 MG TABLET 80 MG PO (20:19)
[2024-02-24] MEDS: BENZONATATE 100 MG CAPSULE 200 MG PO (20:19)
[2024-02-24] MEDS: PATIROMER CALCIUM 8.4 GM PACKET (NON-FORM) PO (20:39)
[2024-02-24] MEDS: HEPARIN SOD INJ 5000 UNIT/ML VIAL SC (21:50)
[2024-02-25] VITALS (11 sets, daily range): BP systolic 110–142; BP diastolic 69–111; PULSE 62–88; RESP 16–25; TEMP 36.1–36.5; O2SAT 92–100; BMI 39.4
[2024-02-25] MEDS: HEPARIN SOD INJ 5000 UNIT/ML VIAL SC ×3 (05:21→21:13)
[2024-02-25 05:30] LABS: Basophils # (Auto) 0.1 Thou/mm3 (0.0-0.2); Basophils % (Auto) 1 % (0-2.5); Eosinophils # (Auto) 0.3 Thou/mm3 (0.0-0.5); Eosinophils % (Auto) 5 % (0-10); Hematocrit 33.6 % (41.0-53.0); Hemoglobin 10.6 g/dL (13.5-16.0); Immature Granulocytes % (Auto) 0 % (0-0); Immature Granulocytes Auto 0.02 Thou/mm3 (0.00-0.00); Lymphocytes # (Auto) 0.7 Thou/mm3 (1.0-4.8); Lymphocytes % (Auto) 10 % (10-50); Mean Corpuscular HGB Conc 31.5 g/dl (31.0-37.0); Mean Corpuscular Hemoglobin 29.5 pg (25.0-35.0); Mean Corpuscular Volume 94 fL (80-100); Monocytes # (Auto) 0.8 Thou/mm3 (0.0-0.8); Monocytes % (Auto) 11 % (0-12); Neutrophils # (Auto) 5.4 Thou/mm3 (1.8-7.7); Neutrophils % (Auto) 73 % (37-80); Nucleated Red Blood Cell % 0 /100 WBC (0); Platelet Count 263 Thou/mm3 (140-440); RDW Standard Deviation 58.2 fL (35.1-43.9); Red Blood Count 3.59 Miln/mm3 (4.50-5.90); White Blood Count 7.3 Thou/mm3 (3.8-10.6)
[2024-02-25 06:25] LABS: Alanine Aminotransferase 18 U/L (10-49); Albumin, Serum 3.8 gm/dL (3.5-5.0); Alkaline Phosphatase 150 U/L (46-116); Anion Gap 9 (7-16); Aspartate Amino Transferase 25 U/L (0-34); BUN/Creatinine Ratio 22 Ratio (12-20); Bilirubin,Total 0.9 mg/dL (0.3-1.2); Blood Urea Nitrogen 40 mg/dL (9-23); Calcium 9.1 mg/dL (8.3-10.6); Calcium (Corrected) 9.3 mg/dL (8.5-10.1); Chloride 102 mMol/L (98-107); Creatinine (Component) 1.8 mg/dL (0.6-1.3); Globulin 3.7 gm/dL (2.3-3.5); Glucose 143 mg/dL (74-106); Magnesium 1.4 mg/dL (1.6-2.6); Osmolality,Calculated 278 (275-295); Phosphorous 5.1 mg/dL (2.4-5.1); Sodium 133 mMol/L (136-145); Total Protein 7.5 gm/dL (5.7-8.2); eGFR 48 See Note
[2024-02-25] MEDS: BUMETANIDE INJ 0.25 MG/ML VIAL 4 ML 2 MG IVP (08:16)
[2024-02-25] MEDS: ASPIRIN EC 81 MG TABEC PO (08:17)
[2024-02-25] MEDS: PANTOPRAZOLE INJ 40 MG VIAL IVP ×2 (08:18→20:12)
[2024-02-25] MEDS: Magnesium Sulfate 4 GM Ivpb 4 GM/50 ML BAG IV (08:22)
--- NOTE | 2024-02-25 09:26 | PD.RESPRO ---
Documentation for date of: 02/25/24 Subjective Subjective Interval history: David Martel is a 43-year-old male with a past medical history of CHF, CAD status post CABG ( under Dr. Millan), liver cirrhosis, hypertension, insulin-dependent diabetes mellitus x20 yrs, history of DVT, alcohol dependence, and methamphetamine use who presents with abdominal pain. States that he has had abdominal pain for 3 weeks but acutely worsened the last 2 days. Also endorses some shortness of breath and does not use home oxygen and denies chest discomfort. In ED vitals showed RR 24, O2 95% on 7 L NC. Na 132, K 5.7, BUN 39, Cr 1.6 (BL 1.3), GFR 55, ammonia 46, BNP 1600. ABG showed pH 7.26, bicarb 17, pCO2 39. UA: 3+ protein. U tox: Positive for opiates and amphetamine. Admitted for management of acute encephalopathy, CHF exacerbation, hyperkalemia, and VIOLETA. Nephrology consulted for refractory hyperkalemia. 02/23: Patient seen and examined at bedside in telemetry. No acute overnight events noted. Denies muscle weakness, cramps, palpitations. EKG obtained and showed low voltages without appreciable T-wave abnormalities. Had Alvarenga placed but reported significant discomfort with red-colored urine output, and so was removed. Also states that abdominal pain has subsided since admission. Regarding hyperkalemia, recommend to hold off on use of insulin and to continue using Kayexalate instead. Will start patient on IV Bumex with strict I's/O's given volume overload status in conjunction with hyperkalemia. Additionally, given the patient presents with elevated BNP and possible CHF exacerbation patient may be cardiorenal syndrome and anticipate improvement in creatinine with diuretics. 02/24: Patient seen and examined at bedside in telemetry. No acute overnight events noted. Potassium has remained stable, with mild decrease from 5.1 to 5.0. While on Bumex, patient renal function is also remained stable with no notable changes and I/O of 2380/2320 in last 24 hours. Exam Vital Signs Temp Pulse Resp BP Pulse Ox O2 Del Method O2 Flow Rate 97.2 F 69 16 110/69 99 Nasal Cannula 4 02/25/24 08:00 02/25/24 08:16 02/25/24 08:00 02/25/24 08:16 02/25/24 08:00 02/25/24 08:00 02/25/24 08:00 Narrative Exam General: AOx3, no acute distress, able to speak full sentences while on 5 L NC HEENT: NC/AT, mucous membranes moist, bilateral sclera anicteric Cardiovascular: regular rate and rhythm, S1/S2 present, no murmurs appreciated Pulmonary: clear to auscultation bilaterally Abdominal: distended, non-tender, no rebound/guarding Musculoskeletal: normal ROM, 2+ peripheral edema Skin: 2+ bilateral edema, chronic venous stasis changes, varicose veins in distal lower extremities, healed excoriations in upper extremities Neuro: CN II-XII intact, no focal deficits Objective Labs 02/26/24 05:35 02/26/24 10:43 Labs: Laboratory Results - last 24 hr 02/24/24 02/24/24 02/24/24 09:10 13:14 17:40 WBC RBC Hgb Hct MCV MCH MCHC RDW Std Deviation Plt Count Neut % (Auto) Lymph % (Auto) Mcdonough % (Auto) Eos % (Auto) Baso % (Auto) Neut # (Auto) Lymph # (Auto) Mcdonough # (Auto) Eos # (Auto) Baso # (Auto) Immature Gran # (Auto) Absolute Nucleated RBC Immature Gran % Nucleated RBC % Sodium 133 L Potassium 4.9 D 5.5 H D 5.1 Chloride 104 Carbon Dioxide 20.7 Anion Gap 8 BUN 37 H Creatinine 1.8 H Estim Creat Clear Calc Not Performed. eGFR 48 L BUN/Creatinine Ratio 21 H Glucose 121 H D Calculated Osmolality 276 Calcium 9.4 Corrected Calcium Phosphorus Magnesium Total Bilirubin AST ALT Alkaline Phosphatase Total Protein Albumin Globulin Albumin/Globulin Ratio 02/25/24 04:58 WBC 7.3 RBC 3.59 L Hgb 10.6 L Hct 33.6 L MCV 94 MCH 29.5 MCHC 31.5 RDW Std Deviation 58.2 H Plt Count 263 Neut % (Auto) 73 Lymph % (Auto) 10 Mcdonough % (Auto) 11 Eos % (Auto) 5 Baso % (Auto) 1 Neut # (Auto) 5.4 Lymph # (Auto) 0.7 L Mcdonough # (Auto) 0.8 Eos # (Auto) 0.3 Baso # (Auto) 0.1 Immature Gran # (Auto) 0.02 H Absolute Nucleated RBC 0.00 Immature Gran % 0 Nucleated RBC % 0 Sodium 133 L Potassium 5.0 Chloride 102 Carbon Dioxide 22.0 Anion Gap 9 BUN 40 H Creatinine 1.8 H Estim Creat Clear Calc Not Performed. eGFR 48 L BUN/Creatinine Ratio 22 H Glucose 143 H Calculated Osmolality 278 Calcium 9.1 Corrected Calcium 9.3 Phosphorus 5.1 Magnesium 1.4 L Total Bilirubin 0.9 AST 25 ALT 18 Alkaline Phosphatase 150 H Total Protein 7.5 Albumin 3.8 Globulin 3.7 H Albumin/Globulin Ratio 1.0 L ABG Interpretation ABG results: 02/23/24 17:08 ABG pH 7.26 L ABG pCO2 39 ABG pO2 142 H ABG HCO3 17 L ABG O2 Saturation 100 H ABG Base Excess -9 L Quality Measures Quality Measures none Assessment & Plan Assessment Current Active Medications: Generic Name Dose Route Start Last Admin Trade Name Freq PRN Reason Stop Dose Admin Aspirin 81 mg 02/24/24 09:00 02/25/24 08:17 Aspirin Ec 81 Mg Tabec PO 03/25/24 08:59 81 mg QDAY JUDSON Administration Atorvastatin Calcium 80 mg 02/23/24 21:00 02/24/24 20:19 Atorvastatin Calcium 20 Mg Tablet PO 03/24/24 20:59 80 mg HS JUDSON Administration Benzonatate 200 mg 02/24/24 19:36 02/24/24 20:19 Benzonatate 100 Mg Capsule PO 03/25/24 19:35 200 mg Q8HR PRN Administration COUGH Protocol Bumetanide 2 mg 02/24/24 21:00 02/25/24 08:16 Bumetanide Inj 0.25 Mg/Ml Vial 4 Ml IVP 03/25/24 20:59 2 mg BID JUDSON Administration Dextrose 25 ml 02/23/24 16:54 Dextrose 50%-Water Inj 50 Ml Syringe IV 03/24/24 16:53 Q15MIN PRN BG 50-70 responsive npo pt Dextrose 50 ml 02/23/24 16:54 02/23/24 19:27 Dextrose 50%-Water Inj 50 Ml Syringe IV 03/24/24 16:53 50 ml Q15MIN PRN Administration BG <50 OR BG <70 & pt unresponsive Glucagon 1 mg 02/23/24 16:54 Glucagon Inj 1 Mg Vial IM Q15MIN PRN BG <70, and no IV access Heparin Sodium (Porcine) 5,000 unit 02/24/24 22:00 02/25/24 05:21 Heparin Sod Inj 5000 Unit/Ml Vial SC 03/09/24 21:59 5,000 unit Q8HR JUDSON Administration Ceftriaxone Sodium 2 gm/ 50 mls @ 100 mls/hr 02/25/24 09:00 02/25/24 08:21 Sodium Chloride IV 03/01/24 16:59 100 mls/hr QDAY JUDSON Administration Magnesium Sulfate 4 gm in 50 mls @ 12.5 mls/hr 02/25/24 06:42 02/25/24 08:22 Magnesium Sulfate Ivpb IV 02/25/24 10:41 12.5 mls/hr X1 ONE Administration Insulin Human Lispro 0 unit 02/24/24 07:30 02/25/24 07:50 Insulin Lispro (Admelog) 1 Unit/0.01 Ml Unit SC 03/25/24 07:29 Not Given AC JUDSON Protocol Ondansetron HCl 4 mg 02/23/24 16:56 Ondansetron Inj 2 Mg/Ml Inj 2 Ml IV 03/24/24 16:55 Q6H PRN NAUSEA OR VOMITING Protocol Oxycodone/Acetaminophen 1 tab 02/23/24 16:56 Oxycodone/Apap 5/325 Tablet PO 02/28/24 16:55 Q6H PRN PAIN SCALE 4-6 (Moderate Pantoprazole Sodium 40 mg 02/23/24 21:00 02/25/24 08:18 Pantoprazole Inj 40 Mg Vial IVP 03/24/24 20:59 40 mg BID JUDSON Administration Patiromer 8.4 gm 02/25/24 08:00 Patiromer Calcium 8.4 Gm Packet (Non-Form) PO 03/26/24 07:59 TIDWM JUDSON Plan David Martel is a 43-year-old male with a past medical history of CHF, CAD status post CABG, liver cirrhosis, hypertension, insulin-dependent diabetes mellitus, history of DVT, alcohol dependence, and methamphetamine use who is admitted for management acute encephalopathy, CHF exacerbation, hyperkalemia, and VIOLETA. Nephrology consulted for refractory hyperkalemia. #Refractory hyperkalemia #? RTA, type IV Patient has received multiple doses of insulin with D50 as well as Kayexalate. Initially presented with potassium of 5.7 that peaked at 6.4 and has continued to fluctuate. Although not compliant with medications, noted to have home aldactone and entresto, so suspect medication-related vs underlying RTA type IV. Renal ultrasound: Bilateral renal cortical thinning, mild bilateral renal parenchymal scar formation. ? Can hold off on Kayexalate ? Continue Bumex 2 mg IV twice daily with strict I's and O's #Acute kidney injury #? Chronic kidney disease #? Prerenal azotemia versus cardiorenal syndrome BUN/creatinine ratio 24 indicative of prerenal azotemia. In setting of CHF exacerbation with BNP of 1600, may indicate possible cardiorenal syndrome. Urine studies also show elevated protein, with urine protein-creatinine ratio of 2.4 that may indicate chronic kidney disease in setting of long-standing type 2 diabetes mellitus. ? Bumex as above #Acute encephalopathy, resolved #Alcohol dependence #Methamphetamine use #Liver cirrhosis #Anasarca #CHF exacerbation #Normocytic anemia #CAD status post CABG #Type 2 diabetes mellitus, insulin-dependent #History of DVT ? Continue management per primary team ----- Plan discussed with attending physician Dr. Miguel Angel Bess MD PGY-1 Internal Medicine Attending Provider Attestation/Addendum Patient seen and examined with resident physician Dr. Gonzalez. Note reviewed, agree with findings and recommendations. Hyperkalemia better. Patient suspected to have type IV RTA from longstanding diabetes.added Rohith.
[2024-02-25] MEDS: PATIROMER CALCIUM 8.4 GM PACKET (NON-FORM) PO ×2 (09:47→11:39)
[2024-02-25 10:23] LABS: Creatinine,Random Urine 22 mg/dL (30-125); Protein Total, Random Urine 53 mg/dL (1-14)
[2024-02-25] MEDS: INSULIN LISPRO (AdmeLOG) 1 UNIT/0.01 ML UNIT SC ×2 (11:38→16:57)
--- NOTE | 2024-02-25 12:12 | XR_ITS ---
Examination: AP chest single view Technique one AP portable semiupright chest single view Exam date and time: February 25, 2024 1257 hours INDICATIONS: Coughing today. FINDINGS: Moderate enlargement cardiac contour CABG Mild vascular congestion. No lobar pneumonia IMPRESSION: No lobar pneumonia
--- NOTE | 2024-02-25 14:06 | ESPR_ITS ---
<Statement entered by Krissy Rowe MD - 03/02/24 12:08> I reviewed above note and agree with findings and plans. I have also personally examined the patient with medicine team and went over assessment and plan with medical team including product management intern and resident physician. Documentation for date of: 02/25/24 Subjective Subjective Interval history: No overnight events. Plaints of dry cough for which she started TESSALON. Tolerating oral intake without nausea or vomiting. Having regular bowel movements. Denies fever, chills, headaches, chest pain, sob, cough, GI or urinary symptoms. Exam Vital Signs Temp Pulse Resp BP Pulse Ox O2 Del Method O2 Flow Rate 97.3 F 70 18 114/79 98 Nasal Cannula 4 02/25/24 12:00 02/25/24 12:00 02/25/24 12:02/25/24 12:00 02/25/24 12:00 02/25/24 12:02/25/24 12:00 Narrative Exam GENERAL * Obese, on 2 L NC. No apparent distress. HEENT * NCAT.?ANI. Oral mucosa is moist. Patent Nares NECK * Supple, nontender, no thyromegaly, no meningismus, no JVD, no step offs CHEST * RRR, no m/g/r * Bilateral wheezing otherwise normal chest exam * Atraumatic, nontender, no crepitus, symmetrical expansion. ABDOMEN * Obese, distended, striations, nontender, no guarding or rebound tenderness. Umbilical hernia noted on exam. * Bowel sounds presents EXTREMITIES * 1+ bilateral lower extremity edema extending above the knee, tender to palpation, erythematous. SKIN * Warm and dry, mild scleral icterus, no jaundice NEUROMUSCULAR * No lumbar or midline, no CVA, no paraspinal muscle spasm or tenderness. * Moves all 4 extremities well, with full ROM and good CSM. * A&Ox3. * No focal neurologic deficits. PSYCHIATRY * Somnolence, difficult to arouse, cooperative, no SI or HI or hallucinations. Objective Labs 02/26/24 05:35 02/26/24 05:35 Labs: Laboratory Results - last 24 hr 02/24/24 02/25/24 02/25/24 17:40 04:58 10:00 WBC 7.3 RBC 3.59 L Hgb 10.6 L Hct 33.6 L MCV 94 MCH 29.5 MCHC 31.5 RDW Std Deviation 58.2 H Plt Count 263 Neut % (Auto) 73 Lymph % (Auto) 10 [place] % (Auto) 11 Eos % (Auto) 5 Baso % (Auto) 1 Neut # (Auto) 5.4 Lymph # (Auto) 0.7 L [place] # (Auto) 0.8 Eos # (Auto) 0.3 Baso # (Auto) 0.1 Immature Gran # (Auto) 0.02 H Absolute Nucleated RBC 0.00 Immature Gran % 0 Nucleated RBC % 0 Sodium 133 L 133 L Potassium 5.1 5.0 Chloride 104 102 Carbon Dioxide 20.7 22.0 Anion Gap 8 9 BUN 37 H 40 H Creatinine 1.8 H 1.8 H Estim Creat Clear Calc Not Performed. Not Performed. eGFR 48 L 48 L BUN/Creatinine Ratio 21 H 22 H Glucose 121 H D 143 H Calculated Osmolality 276 278 Calcium 9.4 9.1 Corrected Calcium 9.3 Phosphorus 5.1 Magnesium 1.4 L Total Bilirubin 0.9 AST 25 ALT 18 Alkaline Phosphatase 150 H Total Protein 7.5 Albumin 3.8 Globulin 3.7 H Albumin/Globulin Ratio 1.0 L Ur Random Creatinine 22 L U Random Total Protein 53 H ABG Interpretation ABG results: 02/23/24 17:08 ABG pH 7.26 L ABG pCO2 39 ABG pO2 142 H ABG HCO3 17 L ABG O2 Saturation 100 H ABG Base Excess -9 L Quality Measures Quality Measures none Assessment & Plan Assessment Current Active Medications: Generic Name Dose Route Start Last Admin Trade Name Freq PRN Reason Stop Dose Admin Aspirin 81 mg 02/24/24 09:00 02/25/24 08:17 Aspirin Ec 81 Mg Tabec PO 03/25/24 08:59 81 mg QDAY JUDSON Administration Atorvastatin Calcium 80 mg 02/23/24 21:00 02/24/24 20:19 Atorvastatin Calcium 20 Mg Tablet PO 03/24/24 20:59 80 mg HS JUDSON Administration Benzonatate 200 mg 02/24/24 19:36 02/24/24 20:19 Benzonatate 100 Mg Capsule PO 03/25/24 19:35 200 mg Q8HR PRN Administration COUGH Protocol Bumetanide 2 mg 02/24/24 21:00 02/25/24 08:16 Bumetanide Inj 0.25 Mg/Ml Vial 4 Ml IVP 03/25/24 20:59 2 mg BID JUDSON Administration Dextrose 25 ml 02/23/24 16:54 Dextrose 50%-Water Inj 50 Ml Syringe IV 03/24/24 16:53 Q15MIN PRN BG 50-70 responsive npo pt Dextrose 50 ml 02/23/24 16:54 02/23/24 19:27 Dextrose 50%-Water Inj 50 Ml Syringe IV 03/24/24 16:53 50 ml Q15MIN PRN Administration BG <50 OR BG <70 & pt unresponsive Glucagon 1 mg 02/23/24 16:54 Glucagon Inj 1 Mg Vial IM Q15MIN PRN BG <70, and no IV access Heparin Sodium (Porcine) 5,000 unit 02/24/24 22:00 02/25/24 05:21 Heparin Sod Inj 5000 Unit/Ml Vial SC 03/09/24 21:59 5,000 unit Q8HR JUDSON Administration Ceftriaxone Sodium 2 gm/ 50 mls @ 100 mls/hr 02/25/24 09:00 02/25/24 08:21 Sodium Chloride IV 03/01/24 16:59 100 mls/hr QDAY JUDSON Administration Insulin Human Lispro 0 unit 02/24/24 07:30 02/25/24 11:38 Insulin Lispro (Admelog) 1 Unit/0.01 Ml Unit SC 03/25/24 07:29 1 unit AC JUDSON Administration Protocol Ondansetron HCl 4 mg 02/23/24 16:56 Ondansetron Inj 2 Mg/Ml Inj 2 Ml IV 03/24/24 16:55 Q6H PRN NAUSEA OR VOMITING Protocol Oxycodone/Acetaminophen 1 tab 02/23/24 16:56 Oxycodone/Apap 5/325 Tablet PO 02/28/24 16:55 Q6H PRN PAIN SCALE 4-6 (Moderate Pantoprazole Sodium 40 mg 02/23/24 21:00 02/25/24 08:18 Pantoprazole Inj 40 Mg Vial IVP 03/24/24 20:59 40 mg BID JUDSON Administration Patiromer 8.4 gm 02/26/24 09:00 Patiromer Calcium 8.4 Gm Packet (Non-Form) PO 03/27/24 08:59 DAILY JUDSON Plan In summary: 43-year-old male with PMHx of CHF, CAD s/p CABG, liver cirrhosis, HTN, diabetes, previous DVT, alcohol dependency, METHAMPHETAMINE, presenting with abdominal pain. Admitted for liver cirrhosis, anasarcous, CHF exacerbation, and VIOLETA. Appreciate recommendations from Nephrology team. 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 Hypoadrenalism DDx: Prolonged use of ACEI and FUROSEMIDE, hypoadrenalism, acute prerenal VIOLETA. 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 Patient on BRIAN and LASIX chronically for heart failure. Has chronic hyponatremia and hyperkalemia, suggestive of hypoadrenalism. Renal US showed bilateral renal cortical thinning, mild bilateral renal parenchymal scar formation. Additionally, he presented with prerenal VIOLETA possibly in settings of cardiorenal versus hepatorenal syndrome. Admission potassium 6.1, improving with INSULIN, CALCIUM GLUCONATE, KAYEXALATE therapy. Currently under control with potassium level 5.0. Nephrology team following. ? Continue PATIROMER CALCIUM 8.4 gm daily ? Holding BUMEX 2 mg IV ? Continue monitoring potassium ? Replete mag and potassium as needed ? Pending morning CORTISOL Prerenal VIOLETA Likely in settings of decreased fluid intake. Presented with CR 1.6, which worsened after LASIX or ALBUMIN trial. Currently CR 1.8. ? Encourage oral hydration ? Holding BUMEX 2 mg IV ? Renally dose meds, avoid overdiuresis and NEPHROTOXINS ? Daily CMP Liver cirrhosis Anasarca History of liver cirrhosis. Abdominal striae, anasarca, mild scleral icterus on exam. CT shows cirrhosis, moderate ascites and anasarcous. Normal liver synthetic and enzyme. Normal INR, total bili, LFTs, ALBUMIN. Ammonia 46. Repeat abdominal ultrasound showed minimal ascites. No signs of volume overload on exam. ? Hold LASIX 40 IV BID ? Hold home SPIRONOLACTONE 25 mg daily CHF exacerbation HFrEF EF 30-35% History of CHF and medication noncompliance. 2+ bilateral lower extremity edema, coarse breath sounds on exam with bibasilar crackles. BNP 1672. CXR showed mild- mod CHF. CT showed vascular congestion. ECHO showed EF 30-35%, dilated LV. Severe systolic dysfunction, moderate septal LVH, global hypokinesis. TSH 6.3, T4 1.23, TG 68, cholesterol 107, LDL 58, A1c 6.2 ? Hold LASIX and SPIRONOLACTONE as above ? Strict HARMONY's ? Resume GDMT after renal function improves Acute abdominal pain (improving) DDx: SBP, constipation, gastritis, umbilical hernia Complains of 3 weeks of abdominal pain and constipation. Abdomen distended and tender diffusely with mild guarding on exam. CT showed ascites, and 25 mm fluid containing umbilical hernia, no signs of incarceration. However per radiology, not enough fluid to be drained safely. Afebrile, no leukocytosis, however will treat as SBP given ascites. Revisit paracentesis tomorrow. ? Continue CEFTRIAXONE 2 mg daily 5-7 days (02/22 to [present]) ? Paracentesis with fluid analysis ? Pending blood culture Acute on chronic iron deficiency anemia (improving) Admission Hgb 11.7, baseline 13.9. No signs or symptoms of upper or lower GI bleed. Low iron storage during this admission. Low iron storage. ? Pending FOBT ? Consider starting IRON supps. History CVA CAD s/p CABG History of above. Denies current chest pain. Normal troponin. No acute ST changes. ? Continued home ASPIRIN 81 mg daily ? Continued home ATORVASTATIN 80 mg HS Hypoglycemia Diabetes A1c 6.2. GLUCOSE within normal limits. ? INSULIN sliding scale ? Accu-Cheks ? Avoid hypoglycemia Hx of DVT Has bilateral lower extremity swelling on exam. Pulses intact. Given history of DVT and increased risk secondary to her cirrhosis. Venous Doppler bilateral lower extremity negative. ? SCD prophylaxis Alcohol dependency METHAMPHETAMINE use Patient states currently not drinking alcohol. ? Consult on drug use cessation Generalized anxiety disorder ? Continued home PAROXETINE 30 mg HS Nonproductive cough Complains of nonproductive cough. Feels little short of breath. Repeat CXR showed mild vascular congestion, no pneumonia. Wheezing on exam. ? Started DuoNebs PRN ? Started TESSALON 200 mg PRN Acute encephalopathy (resolved) Alcohol dependency DDx: METH withdrawal, ANALGESICS, less likely hepatic encephalopathy. Patient somnolent on exam, ANOx3. Likely related to MORPHINE and LORAZEPAM given for pain earlier. Per family at bedside, he had normal mentation prior. Ammonia 46, still low suspicion for hepatic encephalopathy but will give LACTULOSE. No signs of withdrawal, seizure or hallucination. Alcohol level normal. He is alert and awake this morning. Having regular conversation. Appears at baseline. No signs of encephalopathy or altered mental status. ? S/p LACTULOSE 10 mg x 1 ? Avoid oversedation Incidental Findings: CT showed Grade 1 spondylolisthesis L5 on S1 with moderate disc narrowing L5-S1. Patient otherwise aysmptomatic. Normal neurological exam. ? Recommended outpatient PCP follow-up Health maintenance Diet: Cardiorenal GI prophylaxis: PROTONIX DVT prophylaxis: SCD Antibiotics: CEFTRIAXONE CODE STATUS: Full code Disposition: Pending workup Patient case was discussed with attending, Dr. Krissy Rowe MD and senior residents Dr. Baltazar and Dr. De La Rosa. Chelita Corral, PGYI Senior Resident Attestation: The patient reported doing much better this morning. However, he was having a lot of cough. No significant overnight events. Vitals were stable. Physical exam was significant for ascites, 0-1+ bilateral peripheral pitting edema. Labs are significant for potassium of 5.0 and creatinine trended up to 1.8. The patient's hyperkalemia is likely secondary to RTA type IV with hyperkalemia and hyperchloremic acidosis in the setting of possible CKD, but could also be multifactorial in the setting of long-term use of spironolactone and Entresto. He has been chronically hyperkalemic and hyponatremic, and 8 AM cortisol level was ordered to rule out hypoadrenalism. The patient is also started on Veltassa 8.4 g daily. His VIOLETA is likely prerenal thought to be likely secondary to decreased p.o. intake in the setting of nausea and abdominal pain for past 3 to 4 days. We are heading Bumex and will monitor renal function tomorrow morning. We will continue with other current medical management. I discussed with and supervised the product management intern physician involved in the care of this patient. I personally saw and examined the patient and discussed the assessment and plan with the entire medicine team, including my attending. I agree with the assessment and plan as documented above. Taran De La Rosa MD PGY2 Internal Medicine-%
--- NOTE | 2024-02-25 14:22 | PC.SS ---
Patient is alert/oriented. He states he resides alone. Admitted for acute liver cirrhosis. Patient states he was having a difficult tme ambulating prior to hospitalization. Patient was using a cane as needed. He's currently on 02 but at home he does not use it. Patient states his friend and careprovider lives next door and checks on him daily. Patient has hx: alcohol dependence and tox report was positive for meth. Patient states he plans on returning home. Patient states his friend, careprovider is his alt medical decision maker. Lala, . PCP: YOLANDA Sanders @ [facility]. Last appt. was last week. D/c pending home.
[2024-02-25] MEDS: ALBUTEROL/IPRATROPIUM (Duoneb) RT SOL 3 ML NEBU INH (17:04)
[2024-02-25] MEDS: BENZONATATE 100 MG CAPSULE 200 MG PO (17:12)
[2024-02-25 19:22] LABS: Potassium 4.8 mMol/L (3.4-5.1)
[2024-02-25] MEDS: ATORVASTATIN CALCIUM 20 MG TABLET 80 MG PO (20:11)
[2024-02-25] MEDS: PARoxetine HCL 10 MG TABLET 30 MG PO (20:12)
--- NOTE | 2024-02-25 20:56 | PC.RT ---
NOC PRN BiPAP brought in for pt due to desats while sleeping. Pt is aware he has sleep apnea but does not want to wear BiPAP. Pt has previously owned a CPAP that he was non compliant with. Pt is aware of benefits of wearing device and has been educated on importance of following Sandro díaz. LEE Lange notified.
[2024-02-25] MEDS: oxyCODONE/APAP 5/325 TABLET 1 TAB PO (23:51)
[2024-02-26] VITALS: BP 127/74; PULSE 75; PULSE 83; RESP 21; TEMP 36.6; O2SAT 95
[2024-02-26 04:00] VITALS: BP 119/69; PULSE 74; RESP 20; TEMP 36.1; O2SAT 97
[2024-02-26] MEDS: HEPARIN SOD INJ 5000 UNIT/ML VIAL SC (05:42)
[2024-02-26 06:00] VITALS: BMI 42.5
[2024-02-26 06:14] LABS: Basophils # (Auto) 0.1 Thou/mm3 (0.0-0.2); Basophils % (Auto) 1 % (0-2.5); Eosinophils # (Auto) 0.3 Thou/mm3 (0.0-0.5); Eosinophils % (Auto) 4 % (0-10); Hematocrit 33.9 % (41.0-53.0); Hemoglobin 10.9 g/dL (13.5-16.0); Immature Granulocytes % (Auto) 0 % (0-0); Immature Granulocytes Auto 0.01 Thou/mm3 (0.00-0.00); Lymphocytes # (Auto) 0.7 Thou/mm3 (1.0-4.8); Lymphocytes % (Auto) 11 % (10-50); Mean Corpuscular HGB Conc 32.2 g/dl (31.0-37.0); Mean Corpuscular Hemoglobin 29.2 pg (25.0-35.0); Mean Corpuscular Volume 91 fL (80-100); Monocytes # (Auto) 0.8 Thou/mm3 (0.0-0.8); Monocytes % (Auto) 12 % (0-12); Neutrophils # (Auto) 5.1 Thou/mm3 (1.8-7.7); Neutrophils % (Auto) 73 % (37-80); Nucleated Red Blood Cell % 0 /100 WBC (0); Platelet Count 215 Thou/mm3 (140-440); Red Blood Count 3.73 Miln/mm3 (4.50-5.90)
[2024-02-26 06:41] VITALS: PULSE 72; RESP 16; O2SAT 94
[2024-02-26 06:42] LABS: Alanine Aminotransferase 15 U/L (10-49); Albumin, Serum 3.8 gm/dL (3.5-5.0); Alkaline Phosphatase 167 U/L (46-116); Anion Gap 9 (7-16); Aspartate Amino Transferase 24 U/L (0-34); BUN/Creatinine Ratio 24 Ratio (12-20); Bilirubin,Total 1.1 mg/dL (0.3-1.2); Blood Urea Nitrogen 39 mg/dL (9-23); Calcium 8.9 mg/dL (8.3-10.6); Calcium (Corrected) 9.1 mg/dL (8.5-10.1); Carbon Dioxide 19.6 mMol/L (20.0-31.0); Chloride 101 mMol/L (98-107); Creatinine (Component) 1.6 mg/dL (0.6-1.3); Estimated Creatinine Clearance 68.5 mL/min (>60); Globulin 3.8 gm/dL (2.3-3.5); Glucose 125 mg/dL (74-106); Magnesium 1.4 mg/dL (1.6-2.6); Osmolality,Calculated 271 (275-295); Phosphorous 3.6 mg/dL (2.4-5.1); Potassium 4.7 mMol/L (3.4-5.1); Sodium 130 mMol/L (136-145); Total Protein 7.6 gm/dL (5.7-8.2); eGFR 55 See Note
[2024-02-26 08:00] VITALS: BP 127/83; PULSE 69; PULSE 70; RESP 25; TEMP 36.1; O2SAT 95
[2024-02-26] MEDS: ASPIRIN EC 81 MG TABEC PO (08:26)
[2024-02-26] MEDS: PANTOPRAZOLE INJ 40 MG VIAL IVP (08:26)
[2024-02-26] MEDS: PATIROMER CALCIUM 8.4 GM PACKET (NON-FORM) PO (08:26)
--- NOTE | 2024-02-26 08:46 | PD.RESPRO ---
Documentation for date of: 02/26/24 Subjective Subjective Interval history: David Martel is a 43-year-old male with a past medical history of CHF, CAD status post CABG (under Dr. Grant), liver cirrhosis, hypertension, insulin-dependent diabetes mellitus x20 yrs, history of DVT, alcohol dependence, and methamphetamine use who presents with abdominal pain. States that he has had abdominal pain for 3 weeks but acutely worsened the last 2 days. Also endorses some shortness of breath and does not use home oxygen and denies chest discomfort. In ED vitals showed RR 24, O2 95% on 7 L NC. Na 132, K 5.7, BUN 39, Cr 1.6 (BL 1.3), GFR 55, ammonia 46, BNP 1600. ABG showed pH 7.26, bicarb 17, pCO2 39. UA: 3+ protein. U tox: Positive for opiates and amphetamine. Admitted for management of acute encephalopathy, CHF exacerbation, hyperkalemia, and VIOLETA. Nephrology consulted for refractory hyperkalemia. 02/23: Patient seen and examined at bedside in telemetry. No acute overnight events noted. Denies muscle weakness, cramps, palpitations. EKG obtained and showed low voltages without appreciable T-wave abnormalities. Had Alvarenga placed but reported significant discomfort with red-colored urine output, and so was removed. Also states that abdominal pain has subsided since admission. Regarding hyperkalemia, recommend to hold off on use of insulin and to continue using Kayexalate instead. Will start patient on IV Bumex with strict I's/O's given volume overload status in conjunction with hyperkalemia. Additionally, given the patient presents with elevated BNP and possible CHF exacerbation patient may be cardiorenal syndrome and anticipate improvement in creatinine with diuretics. 02/24: Patient seen and examined at bedside in telemetry. No acute overnight events noted. Potassium has remained stable, with mild decrease from 5.1 to 5.0. While on Bumex, patient renal function is also remained stable with no notable changes and I/O of 2380/2320 in last 24 hours. 02/25: Patient seen and examined at bedside in telemetry. No acute overnight events noted. Potassium continues to remain stable at 4.7. Renal function also stable, but will change Bumex from 2 mg BID to 1 mg daily. Patient can be discharged from nephrology standpoint but would like for patient to follow-up with Dr. Michelle outpatient. Exam Vital Signs Temp Pulse Resp BP Pulse Ox O2 Del Method O2 Flow Rate 97.0 F 69 25 H 127/83 95 Nasal Cannula 2 02/26/24 08:00 02/26/24 08:00 02/26/24 08:00 02/26/24 08:00 02/26/24 08:00 02/26/24 08:00 02/26/24 08:00 Narrative Exam General: AOx3, no acute distress, able to speak full sentences while on 5 L NC HEENT: NC/AT, mucous membranes moist, bilateral sclera anicteric Cardiovascular: regular rate and rhythm, S1/S2 present, no murmurs appreciated Pulmonary: clear to auscultation bilaterally Abdominal: distended, non-tender, no rebound/guarding Musculoskeletal: normal ROM, 2+ peripheral edema Skin: bilateral non-pitting edema, chronic venous stasis changes, varicose veins in distal lower extremities, healed excoriations in upper extremities Neuro: CN II-XII intact, no focal deficits Objective Labs 02/26/24 05:35 02/26/24 10:43 Labs: Laboratory Results - last 24 hr 02/25/24 02/25/24 02/26/24 10:00 18:30 05:35 WBC 7.0 RBC 3.73 L Hgb 10.9 L Hct 33.9 L MCV 91 MCH 29.2 MCHC 32.2 RDW Std Deviation 56.0 H Plt Count 215 D Neut % (Auto) 73 Lymph % (Auto) 11 [place] % (Auto) 12 Eos % (Auto) 4 Baso % (Auto) 1 Neut # (Auto) 5.1 Lymph # (Auto) 0.7 L [place] # (Auto) 0.8 Eos # (Auto) 0.3 Baso # (Auto) 0.1 Immature Gran # (Auto) 0.01 H Absolute Nucleated RBC 0.00 Immature Gran % 0 Nucleated RBC % 0 Sodium 130 L Potassium 4.8 4.7 Chloride 101 Carbon Dioxide 19.6 L Anion Gap 9 BUN 39 H Creatinine 1.6 H Estim Creat Clear Calc 68.5 eGFR 55 L BUN/Creatinine Ratio 24 H Glucose 125 H Calculated Osmolality 271 L Calcium 8.9 Corrected Calcium 9.1 Phosphorus 3.6 Magnesium 1.4 L Total Bilirubin 1.1 AST 24 ALT 15 Alkaline Phosphatase 167 H Total Protein 7.6 Albumin 3.8 Globulin 3.8 H Albumin/Globulin Ratio 1.0 L Ur Random Creatinine 22 L U Random Total Protein 53 H ABG Interpretation ABG results: 02/23/24 17:08 ABG pH 7.26 L ABG pCO2 39 ABG pO2 142 H ABG HCO3 17 L ABG O2 Saturation 100 H ABG Base Excess -9 L Quality Measures Quality Measures none Assessment & Plan Assessment Current Active Medications: Generic Name Dose Route Start Last Admin Trade Name Freq PRN Reason Stop Dose Admin Albuterol/Ipratropium 3 ml 02/25/24 16:42 02/25/24 17:04 Albuterol/Ipratropium (Duoneb) Rt Ashlee 3 Ml Nebu INH 03/26/24 16:41 3 ml Q2HR PRN Administration SHORTNESS OF BREATH OR WHEEZE Aspirin 81 mg 02/24/24 09:00 02/26/24 08:26 Aspirin Ec 81 Mg Tabec PO 03/25/24 08:59 81 mg QDAY JUDSON Administration Atorvastatin Calcium 80 mg 02/23/24 21:00 02/25/24 20:11 Atorvastatin Calcium 20 Mg Tablet PO 03/24/24 20:59 80 mg HS JUDSON Administration Benzonatate 200 mg 02/24/24 19:36 02/25/24 17:12 Benzonatate 100 Mg Capsule PO 03/25/24 19:35 200 mg Q8HR PRN Administration COUGH Protocol Bumetanide 2 mg 02/24/24 21:00 02/25/24 08:16 Bumetanide Inj 0.25 Mg/Ml Vial 4 Ml IVP 03/25/24 20:59 2 mg BID JUDSON Administration Dextrose 25 ml 02/23/24 16:54 Dextrose 50%-Water Inj 50 Ml Syringe IV 03/24/24 16:53 Q15MIN PRN BG 50-70 responsive npo pt Dextrose 50 ml 02/23/24 16:54 02/23/24 19:27 Dextrose 50%-Water Inj 50 Ml Syringe IV 03/24/24 16:53 50 ml Q15MIN PRN Administration BG <50 OR BG <70 & pt unresponsive Glucagon 1 mg 02/23/24 16:54 Glucagon Inj 1 Mg Vial IM Q15MIN PRN BG <70, and no IV access Heparin Sodium (Porcine) 5,000 unit 02/24/24 22:00 02/26/24 05:42 Heparin Sod Inj 5000 Unit/Ml Vial SC 03/09/24 21:59 5,000 unit Q8HR JUDSON Administration Ceftriaxone Sodium 2 gm/ 50 mls @ 100 mls/hr 02/25/24 09:00 02/25/24 08:21 Sodium Chloride IV 03/01/24 16:59 100 mls/hr QDAY JUDSON Administration Magnesium Sulfate 4 gm in 50 mls @ 12.5 mls/hr 02/26/24 06:48 Magnesium Sulfate Ivpb IV 02/26/24 10:47 X1 ONE Insulin Human Lispro 0 unit 02/24/24 07:30 02/26/24 07:30 Insulin Lispro (Admelog) 1 Unit/0.01 Ml Unit SC 03/25/24 07:29 Not Given AC JUDSON Protocol Ondansetron HCl 4 mg 02/23/24 16:56 Ondansetron Inj 2 Mg/Ml Inj 2 Ml IV 03/24/24 16:55 Q6H PRN NAUSEA OR VOMITING Protocol Oxycodone/Acetaminophen 1 tab 02/23/24 16:56 02/25/24 23:51 Oxycodone/Apap 5/325 Tablet PO 02/28/24 16:55 1 tab Q6H PRN Administration PAIN SCALE 4-6 (Moderate Pantoprazole Sodium 40 mg 02/23/24 21:00 02/26/24 08:26 Pantoprazole Inj 40 Mg Vial IVP 03/24/24 20:59 40 mg BID JUDSON Administration Paroxetine HCl 30 mg 02/25/24 21:00 02/25/24 20:12 Paroxetine Hcl 10 Mg Tablet PO 03/26/24 20:59 30 mg HS JUDSON Administration Patiromer 8.4 gm 02/26/24 09:00 02/26/24 08:26 Patiromer Calcium 8.4 Gm Packet (Non-Form) PO 03/27/24 08:59 8.4 gm DAILY JUDSON Administration Plan David Martel is a 43-year-old male with a past medical history of CHF, CAD status post CABG, liver cirrhosis, hypertension, insulin-dependent diabetes mellitus, history of DVT, alcohol dependence, and methamphetamine use who is admitted for management acute encephalopathy, CHF exacerbation, hyperkalemia, and VIOLETA. Nephrology consulted for refractory hyperkalemia. #Refractory hyperkalemia #? RTA, type IV Patient has received multiple doses of insulin with D50 as well as Kayexalate. Initially presented with potassium of 5.7 that peaked at 6.4 and has continued to fluctuate. Although not compliant with medications, noted to have home aldactone and entresto, so suspect medication-related vs underlying RTA type IV as patient had ABG with pH 7.2 on admission. Renal ultrasound: Bilateral renal cortical thinning, mild bilateral renal parenchymal scar formation. ? Can hold off on Kayexalate ? Bumex 2 mg IV BID to 1 mg BID ? Sodium bicarbonate 325 mg PO daily ? Strict I's and O's #Acute kidney injury #? Chronic kidney disease #? Prerenal azotemia versus cardiorenal syndrome BUN/creatinine ratio 24 indicative of prerenal azotemia. In setting of CHF exacerbation with BNP of 1600, may indicate possible cardiorenal syndrome. Urine studies also show elevated protein, with urine protein-creatinine ratio of 2.4 that may indicate chronic kidney disease in setting of long-standing type 2 diabetes mellitus. ? Bumex as above ? Stable for discharge from nephrology standpoint ? Follow-up with Dr. Michelle outpatient ? Discharge with bumex 2 mg PO until patient can see Dr. Michelle #Acute encephalopathy, resolved #Alcohol dependence #Methamphetamine use #Liver cirrhosis #Anasarca #CHF exacerbation #Normocytic anemia #CAD status post CABG #Type 2 diabetes mellitus, insulin-dependent #History of DVT ? Continue management per primary team ----- Plan discussed with attending physician Dr. Miguel Angel Bess MD PGY-1 Internal Medicine Attending Provider Attestation/Addendum Patient seen and examined with resident physician Dr. Gonzalez. Note reviewed, agree with findings and recommendations. Renal etienne stable for discharge
[2024-02-26] MEDS: Magnesium Sulfate 4 GM Ivpb 4 GM/50 ML BAG IV (10:43)
[2024-02-26 11:22] LABS: Albumin, Serum 3.6 gm/dL (3.5-5.0); Anion Gap 8 (7-16); BUN/Creatinine Ratio 26 Ratio (12-20); Blood Urea Nitrogen 42 mg/dL (9-23); Calcium 8.4 mg/dL (8.3-10.6); Calcium (Corrected) 8.7 mg/dL (8.5-10.1); Carbon Dioxide 21.3 mMol/L (20.0-31.0); Chloride 102 mMol/L (98-107); Creatinine (Component) 1.6 mg/dL (0.6-1.3); Estimated Creatinine Clearance 68.5 mL/min (>60); Glucose 137 mg/dL (74-106); Osmolality,Calculated 275 (275-295); Phosphorous 3.4 mg/dL (2.4-5.1); Potassium 4.7 mMol/L (3.4-5.1); Sodium 131 mMol/L (136-145); eGFR 55 See Note
[2024-02-26 12:00] VITALS: BP 107/64; PULSE 68; PULSE 70; RESP 23; TEMP 36.1; O2SAT 93
--- NOTE | 2024-02-26 12:18 | PD.RESPRO ---
Documentation for date of: 02/26/24 Exam Vital Signs Temp Pulse Resp BP Pulse Ox O2 Del Method O2 Flow Rate 97.0 F 69 25 H 127/83 95 Nasal Cannula 2 02/26/24 08:00 02/26/24 08:00 02/26/24 08:00 02/26/24 08:00 02/26/24 08:00 02/26/24 08:00 02/26/24 08:00 Objective Labs 02/26/24 05:35 02/26/24 10:43 Labs: Laboratory Results - last 24 hr 02/25/24 02/26/24 02/26/24 18:30 05:35 10:43 WBC 7.0 RBC 3.73 L Hgb 10.9 L Hct 33.9 L MCV 91 MCH 29.2 MCHC 32.2 RDW Std Deviation 56.0 H Plt Count 215 D Neut % (Auto) 73 Lymph % (Auto) 11 [place] % (Auto) 12 Eos % (Auto) 4 Baso % (Auto) 1 Neut # (Auto) 5.1 Lymph # (Auto) 0.[address] [place] # (Auto) 0.8 Eos # (Auto) 0.3 Baso # (Auto) 0.1 Immature Gran # (Auto) 0.01 H Absolute Nucleated RBC 0.00 Immature Gran % 0 Nucleated RBC % 0 Sodium 130 L 131 L Potassium 4.8 4.7 4.7 Chloride 101 102 Carbon Dioxide 19.6 L 21.3 Anion Gap 9 8 BUN 39 H 42 H Creatinine 1.6 H 1.6 H Estim Creat Clear Calc 68.5 68.5 eGFR 55 L 55 L BUN/Creatinine Ratio 24 H 26 H Glucose 125 H 137 H Calculated Osmolality 271 L 275 Calcium 8.9 8.4 Corrected Calcium 9.1 8.7 Phosphorus 3.6 3.4 Magnesium 1.4 L Total Bilirubin 1.1 AST 24 ALT 15 Alkaline Phosphatase 167 H Total Protein 7.6 Albumin 3.8 3.6 Globulin 3.8 H Albumin/Globulin Ratio 1.0 L ABG Interpretation ABG results: 02/23/24 17:08 ABG pH 7.26 L ABG pCO2 39 ABG pO2 142 H ABG HCO3 17 L ABG O2 Saturation 100 H ABG Base Excess -9 L Quality Measures Quality Measures none Assessment & Plan Assessment Current Active Medications: Generic Name Dose Route Start Last Admin Trade Name Freq PRN Reason Stop Dose Admin Albuterol/Ipratropium 3 ml 02/25/24 16:42 02/25/24 17:04 Albuterol/Ipratropium (Duoneb) Rt Ashlee 3 Ml Nebu INH 03/26/24 16:41 3 ml Q2HR PRN Administration SHORTNESS OF BREATH OR WHEEZE Aspirin 81 mg 02/24/24 09:00 02/26/24 08:26 Aspirin Ec 81 Mg Tabec PO 03/25/24 08:59 81 mg QDAY JUDSON Administration Atorvastatin Calcium 80 mg 02/23/24 21:00 02/25/24 20:11 Atorvastatin Calcium 20 Mg Tablet PO 03/24/24 20:59 80 mg HS JUDSON Administration Benzonatate 200 mg 02/24/24 19:36 02/25/24 17:12 Benzonatate 100 Mg Capsule PO 03/25/24 19:35 200 mg Q8HR PRN Administration COUGH Protocol Bumetanide 2 mg 02/24/24 21:00 02/25/24 08:16 Bumetanide Inj 0.25 Mg/Ml Vial 4 Ml IVP 03/25/24 20:59 2 mg BID JUDSON Administration Dextrose 25 ml 02/23/24 16:54 Dextrose 50%-Water Inj 50 Ml Syringe IV 03/24/24 16:53 Q15MIN PRN BG 50-70 responsive npo pt Dextrose 50 ml 02/23/24 16:54 02/23/24 19:27 Dextrose 50%-Water Inj 50 Ml Syringe IV 03/24/24 16:53 50 ml Q15MIN PRN Administration BG <50 OR BG <70 & pt unresponsive Glucagon 1 mg 02/23/24 16:54 Glucagon Inj 1 Mg Vial IM Q15MIN PRN BG <70, and no IV access Heparin Sodium (Porcine) 5,000 unit 02/24/24 22:00 02/26/24 05:42 Heparin Sod Inj 5000 Unit/Ml Vial SC 03/09/24 21:59 5,000 unit Q8HR JUDSON Administration Ceftriaxone Sodium 2 gm/ 50 mls @ 100 mls/hr 02/25/24 09:00 02/26/24 09:45 Sodium Chloride IV 03/01/24 16:59 100 mls/hr QDAY JUDSON Administration Magnesium Sulfate 4 gm in 50 mls @ 12.5 mls/hr 02/26/24 11:00 02/26/24 10:43 Magnesium Sulfate Ivpb IV 02/26/24 14:59 12.5 mls/hr X1 ONE Administration Insulin Human Lispro 0 unit 02/24/24 07:30 02/26/24 07:30 Insulin Lispro (Admelog) 1 Unit/0.01 Ml Unit SC 03/25/24 07:29 Not Given AC JUDSON Protocol Ondansetron HCl 4 mg 02/23/24 16:56 Ondansetron Inj 2 Mg/Ml Inj 2 Ml IV 03/24/24 16:55 Q6H PRN NAUSEA OR VOMITING Protocol Oxycodone/Acetaminophen 1 tab 02/23/24 16:56 02/25/24 23:51 Oxycodone/Apap 5/325 Tablet PO 02/28/24 16:55 1 tab Q6H PRN Administration PAIN SCALE 4-6 (Moderate Pantoprazole Sodium 40 mg 02/23/24 21:00 02/26/24 08:26 Pantoprazole Inj 40 Mg Vial IVP 03/24/24 20:59 40 mg BID JUDSON Administration Paroxetine HCl 30 mg 02/25/24 21:00 02/25/24 20:12 Paroxetine Hcl 10 Mg Tablet PO 03/26/24 20:59 30 mg HS JUDSON Administration Patiromer 8.4 gm 02/26/24 09:00 02/26/24 08:26 Patiromer Calcium 8.4 Gm Packet (Non-Form) PO 03/27/24 08:59 8.4 gm DAILY JUDSON Administration
--- NOTE | 2024-02-26 13:50 | ESDS_ITS ---
<Statement entered by Krissy Rowe MD - 03/02/24 12:10> I reviewed above note and agree with findings and plans. I have also personally examined the patient with medicine team and went over assessment and plan with medical team including management internship and resident physician. Planned Discharge Date 02/26/24 DS: Providers Provider Date of admission: 02/23/24 16:56 Primary care physician: Olaf Hernandez PA-C Admitting Provider: Waldemar Little MD Attending Provider on Admission: Krissy Rowe MD Consults: 02/24/24 14:45 Consult to Nephrology Urgent Comment: Consulting Provider: Yoni Michelle 02/25/24 18:36 Referral Physical Therapy Routine Comment: Physician Instructions: Attending Provider on DC: Dr. Krissy Rowe MD Discharging Provider: Dr. Krissy Rowe MD DS: Diagnosis Problem List Completed Was Problem List Reviewed/Reconciled?: Yes Hospital Course Hospital Course Hospital course: This is a 43-year-old male with PMHx of CHF, CAD s/p CABG, liver cirrhosis, HTN, diabetes, previous DVT, alcohol dependency, METHAMPHETAMINE, presenting with abdominal pain. Admitted for acute encephalopathy, hyperkalemia, RTA type IV, prerenal VIOLETA, ? hypoadrenalism, liver cirrhosis, anasarcous, CHF exacerbation, acute abdominal pain, METHAMPHETAMINE use. He presented with a potassium of 6.1 which was managed with multi drug therapy including INSULIN, CALCIUM GLUCONATE, KAYEXALATE, and PATIROMER. He was followed by in-house ham passer who suggested RTA type IV and/or CKD stage II. He had a mild VIOLETA with CR 1.6 which improved with management. Patient was also managed for liver cirrhosis anasarcous, for which his home meds have been changed. Additionally he had an echo done for CHF exacerbation with results as stated below. Abdominal pain also resolved with ANTIBIOTICS. 48-hour blood cultures were negative at the time of discharge. Patient was stable at the time of discharge without any complaints. Radiographic findings: * Abdominal CT: Moderate vascular congestion, cirrhosis, moderate ascites, anasarcous, 25 mm fluid containing medical hernia. * Abdominal ultrasound showed minimal ascitic fluid, not enough to be drained safely. * EKG showed sinus rhythm * Echocardiogram showed EF 30-35%, severe diastolic dysfunction, dilated LV, moderate septal LVH, global hypokinesis, among others. * CXR showed mild to moderate CHF. * Head CT with negative for acute hemorrhage, mass effect or midline shift. * Venous Doppler ultrasound were negative for DVT. * Renal ultrasound showed bilateral renal cortical thickening, mild bilateral renal parenchymal scar formation. PATIENT INSTRUCTIONS: Follow-up with PCP within 1-2 weeks of discharge. Discussed management of above findings including: Liver cirrhosis, long-term CHF management/GDMT, hyperkalemia, METHAMPHETAMINE use, and renal function. Please ask your PCP to request the results of the CORTISOL level which was done during this visit to rule out hypoadrenalism (currently pending). Continue taking the following new medications: Follow-up with nephrology, Dr. Michelle, within 1-2 weeks of discharge. Return to Emergency Room if symptoms persist, worsen, or new symptoms develop. Continue taking the following new medications: ? ASPIRIN 81 mg daily (NEW) ? ATORVASTATIN 80 mg daily (NEW) ? BUMEX 1 mg BID (NEW) ? Sodium bicarb 325 mg tablet daily (NEW) ? LACTULOSE 10 mg daily as needed for constipation (NEW) ? VELTASSA 8.4 mg powder daily (NEW) ? BENZONATATE 100 mg every 4 hours as needed for cough (NEW) STOP taking the following medication until you see nephrology, or your PCP: ? STOP taking LASIX 40 mg daily. ? STOP taking SPIRONOLACTONE daily. ? STOP taking ENTRESTO daily. Continue taking all other home medications as prescribed by your doctor. 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 Hypoadrenalism Prerenal VIOLETA Liver cirrhosis Anasarca CHF exacerbation HFrEF EF 30-35% Acute abdominal pain (improving) Acute on chronic iron deficiency anemia (improving) History CVA CAD s/p CABG Hypoglycemia Diabetes Hx of DVT (treatment completed prior to admission) Alcohol dependency METHAMPHETAMINE use Generalized anxiety disorder Nonproductive cough Acute encephalopathy (resolved) Alcohol dependency Incidental Findings: CT showed Grade 1 spondylolisthesis L5 on S1 with moderate disc narrowing L5-S1. Patient otherwise aysmptomatic. Normal neurological exam. ? Recommended outpatient PCP follow-up Patient case was discussed with attending, Dr. Krissy Rowe MD and senior residents Dr. Baltazar and Dr. De La Rosa. Chelita Corral, DO PGYI Senior Resident Attestation: I discussed with and supervised the management internship physician involved in the care of this patient. I personally saw and examined the patient and discussed the assessment and plan with the entire medicine team, including my attending. I agree with the discharge plan as documented above. Taran De La Rosa MD PGY2 Internal Medicine Time Spent with Patient Time attestation: Total time spent providing and/or coordinating discharge services: Greater than 35 minutes. Home Health Home Health Referral Orders: 02/26/24 10:22 Home Health Referral Routine Reason For Exam: PT Home-Bound The patient must either because of illness or injury, need the aid of supportive devices such as crutches, canes, wheelchairs, and walkers; the use of special transportation; or the assistance of another person in order to leave their place of residence; OR have a condition such that leaving his or her home is medically contraindicated. In addition, the patient also meets the following criteria: patient is normally unable to leave the home and leaving home requires considerable taxing effort. Addendum to Home Health Certification Practitioner's Certification: I certify that the patient has been under my care in the hospital and the care of attending physician (see below). We had a [id number] encounter on (see date below). My clinical findings indicate that the patient is home bound per the above criteria and the Home Health Services noted in these orders are medically necessary. The primary reason for the [id number] encounter is related to the fact that the patient requires home health services. Date Certifying [id number]-[id number] Physician Encounter: 02/23/24 Physician's Name who will Assume Oversight for Services: Olaf Hernandez Physician's Phone No.who will Assume Oversight for Service: [facility] [place] Community Resources: No PT to Evaluate: Yes PT to evaluate and provide a treatmnet plan to increase patient's mobility and strength. Wound Care: No IV Therapy: No RN Safety Evaluation: Yes RN to evaluate and create a plan of care that will produce positive outcomes. Palliative Treatment: No Palliative treatment and evaluate the need for hospice. Home Health Aide - Personal Care: No Home Health Aide to assist with any ADL's. Exam Vital Signs Temp Pulse Resp BP Pulse Ox O2 Del Method O2 Flow Rate 96.9 F 70 23 H 107/64 93 L Room Air 2 02/26/24 12:00 02/26/24 12:00 02/26/24 12:02/26/24 12:02/26/24 12:02/26/24 12:02/26/24 08:00 Narrative Exam GENERAL * Obese, on 2 L NC. No apparent distress. HEENT * NCAT.?ANI. Oral mucosa is moist. Patent Nares NECK * Supple, nontender, no thyromegaly, no meningismus, no JVD, no step offs CHEST * RRR, no m/g/r * CTAB, no W/R/R. * Atraumatic, nontender, no crepitus, symmetrical expansion. ABDOMEN * Obese, distended, striations, nontender, no guarding or rebound tenderness. Umbilical hernia noted on exam. * Bowel sounds presents EXTREMITIES * Trace bilateral lower extremity edema extending above the knee, tender to palpation, erythematous. SKIN * Warm and dry, mild scleral icterus, no jaundice NEUROMUSCULAR * No lumbar or midline, no CVA, no paraspinal muscle spasm or tenderness. * Moves all 4 extremities well, with full ROM and good CSM. * A&Ox3. * No focal neurologic deficits. PSYCHIATRY * Somnolence, difficult to arouse, cooperative, no SI or HI or hallucinations. Discharge Plan Plan Patient Disposition: HOME (Self Care) Care Plan Goals: Follow-up with PCP within 1 week of discharge, and request for cortisol level done at hospital to rule out hypoadrenalism, liver cirrhosis and abdominal pain, and Heart Failure (EF 30-35%), recommended starting GDMT. Highly recommended to stop drinking alcohol and stop taking any nonprescribed drugs. Continue taking mediations as prescribed below: - BUMEX 1 mg BID (NEW) - Sodium Bicarbonate 325 mg 4 times daily (NEW) - Veltassa 8.4 g daily for high potassium (NEW) - Atorvastatin 80 Mg daily at night (NEW) - Aspirin 81 Mg daily (NEW) - Lactulose 15ml as needed to maintain bowel movement 2-3 times daily (NEW) - Benzo nitrate 200 Mg up to 3 times a day for cough (NEW) STOP taking home LASIX and SPIRONOLACTONE until you see nephrology. Continue taking all other home medications as prescribed. Return back to emergency department if your symptoms persist or does not improve. Prescriptions/Referrals Prescriptions/Med Rec: New Veltassa 8.4 gram Powder In Packet 8.4 g PO DAILY Qty: 30 0RF paroxetine HCl 30 mg tablet 30 mg PO HS 30 Days Qty: 30 0RF aspirin [Ecotrin Low Strength] 81 mg Tablet,Delayed Release (Dr/Ec) 81 mg PO QDAY 30 Days Qty: 30 0RF atorvastatin 80 mg tablet 80 mg PO HS 30 Days Qty: 30 0RF benzonatate 100 mg Capsule 200 mg PO Q8HR PRN (Reason: Cough) 30 Days Qty: 60 0RF lactulose 10 gram/15 mL solution 10 g PO QDAY PRN (Reason: constipation) Qty: 473 2RF bumetanide 1 mg tablet 1 mg PO BID 30 Days Qty: 60 0RF sodium bicarbonate 325 mg tablet 325 mg PO QDAY 30 Days Qty: 30 0RF Continued (DME) blood-glucose meter [Blood Glucose Monitoring] Kit See Rx Instructions .ROUTE .MEDSUPPLY Qty: 1 0RF Rx Instructions: As directed check BS 3 times a day (DME) blood sugar diagnostic [Blood Glucose Test] Strip See Rx Instructions .ROUTE .MEDSUPPLY Qty: 100 0RF Rx Instructions: As directed check BS 3 times a day (DME) lancets [BD Ultra-Fine II Lancets] 30 gauge misc See Rx Instructions .ROUTE .MEDSUPPLY Qty: 100 0RF Rx Instructions: As directed check BS 3 times a day (DME) pen needle, diabetic [BD Ultra-Fine Micro Pen Needle] 32 gauge x 1/4 needle See Rx Instructions .ROUTE .MEDSUPPLY Qty: 50 0RF Rx Instructions: As directed Eliquis 5 mg tablet 5 mg PO BID Qty: 60 1RF Janumet 50-1,000 mg tablet Patient Comments: TAKE 1 TABLET BY MOUTH TWICE A DAY WITH A MEAL dapagliflozin propanediol [Farxiga] 10 mg tablet 10 mg PO DAILY Held sacubitril-valsartan [Entresto] 24-26 mg Tablet 1 tab PO BID Hold Instructions: hold untill you see PCP Discontinued Britni DVT-PE Treat 30D Start 5 mg (74 tabs) tablets,dose pack 5 mg PO BID Qty: 74 0RF Rx Instructions: Take 10 mg every day for 7 days then you lower the dose to 5 mg daily until your doctors tell you otherwise. Emelynquis DVT-PE Treat 30D Start 5 mg (74 tabs) tablets,dose pack 5 mg PO BID Qty: 74 0RF Rx Instructions: Take 2 TAB/day x 7 days, and then 1 Tab thereafter levofloxacin 500 mg tablet 500 mg PO QDAY Qty: 10 0RF furosemide [Lasix] 40 mg tablet 40 mg PO QDAY Qty: 30 0RF potassium chloride 10 mEq tablet extended release 10 meq PO QDAY Qty: 30 0RF atorvastatin 80 mg Tablet 80 mg PO DAILY furosemide 40 mg tablet 1 mg PO BID atorvastatin 80 mg tablet 80 mg PO DAILY aspirin 81 mg tablet,delayed release (DR/EC) 81 mg PO DAILY Patient Comments: TAKE 1 TABLET BY MOUTH EVERY DAY DIRECTED paroxetine HCl 30 mg Tablet 30 mg PO QDAY Janumet 50-1,000 mg tablet 1 tab PO BIDAC Patient Comments: TAKE 1 TABLET BY MOUTH TWICE A DAY WITH A MEAL sacubitril-valsartan [Entresto] 24-26 mg tablet Patient Comments: TAKE 1 TABLET BY MOUTH TWICE A DAY sacubitril-valsartan [Entresto] 24-26 mg tablet Patient Comments: TAKE 1 TABLET BY MOUTH TWICE A DAY sacubitril-valsartan [Entresto] 24-26 mg tablet 1 tab PO BID Referrals: Olaf Hernandez PA-C [Primary Care Provider] - Yoni Michelle MD [Physician] - Patient/Caregiver Discharge Instructions Discharge Activity: activity as tolerated Education Materials: Addiction Ask These Questions, Addiction: Getting Help, Discharge Instructions for ... Print Language: Thai Stand Alone Forms: Ellie Award Info., Patient Portal Info Letter Discharge Order Discharge Orders: Discharge (Routine); Ordered 02/26/24 Ordered By: Chelita Corral Quality Discharge Quality Measures VTE prophylaxis
[2024-02-26 16:00] VITALS: BP 131/81; PULSE 65; RESP 22; TEMP 36.1; O2SAT 98
--- NOTE | 2024-02-27 08:21 | PC.CC ---
Home health referrals sent through [facility], awaiting responses.
--- NOTE | 2024-02-28 12:06 | PC.CM ---
Patient accepted by [facility]. Start of care date 03/01
[2024-03-04 06:41] LABS: Cortisol,total,LC/MS/MS* 9.6 mcg/dL
== END 2024-02-26 15:55 | disposition home health service (06) | DRG 194 ==
LOC: SERX 16:15 → SERHOLD 17:07 → S2NX 20:45
PROVIDERS: Nurse Practitioner Primary Care; Student in an Organized Health Care Education/Training Program; Admitting Provider Student in an Organized Health Care Education/Training Program; Emergency Provider Emergency Medicine; PCP Physician Assistant Medical; Visit Provider Internal Medicine
DX: I11.0 Hypertensive heart disease with heart failure (principal); I50.23 Acute on chronic systolic (congestive) heart failure; N17.9 Acute kidney failure, unspecified; G93.40 Encephalopathy, unspecified; D50.9 Iron deficiency anemia, unspecified; E87.5 Hyperkalemia; I25.10 Atherosclerotic heart disease of native coronary artery without angina pectoris; K21.9 Gastro-esophageal reflux disease without esophagitis; E11.649 Type 2 diabetes mellitus with hypoglycemia without coma; K74.60 Unspecified cirrhosis of liver; F10.20 Alcohol dependence, uncomplicated; R18.8 Other ascites; E11.22 Type 2 diabetes mellitus with diabetic chronic kidney disease; K59.00 Constipation, unspecified; E78.5 Hyperlipidemia, unspecified; E87.20 Acidosis, unspecified; F41.1 Generalized anxiety disorder; E87.1 Hypo-osmolality and hyponatremia; F15.20 Other stimulant dependence, uncomplicated; E66.9 Obesity, unspecified; I25.2 Old myocardial infarction; E27.40 Unspecified adrenocortical insufficiency; K42.9 Umbilical hernia without obstruction or gangrene; M43.17 Spondylolisthesis, lumbosacral region; F17.200 Nicotine dependence, unspecified, uncomplicated; Z95.1 Presence of aortocoronary bypass graft; Z86.73 Personal history of transient ischemic attack (TIA), and cerebral infarction without residual deficits; Z91.199 Patient's noncompliance with other medical treatment and regimen due to unspecified reason; Z86.718 Personal history of other venous thrombosis and embolism; Y90.0 Blood alcohol level of less than 20 mg/100 ml; Z68.41 Body mass index [BMI] 40.0-44.9, adult; Z91.148 Patient's other noncompliance with medication regimen for other reason; Z79.82 Long term (current) use of aspirin; Z79.899 Other long term (current) drug therapy; Z79.84 Long term (current) use of oral hypoglycemic drugs; Z79.01 Long term (current) use of anticoagulants
CPT/HCPCS: 36415; 36600; 70450; 71045; 74177; 76705; 76770; 80048; 80053; 80061; 80069; 80074; 80307; 80320; 81001; 82042; 82140; 82150; 82533; 82570; 82728; 82803; 82945; 83036; 83540; 83550; 83605; 83615; 83690; 83735; 83880; 83935; 84100; 84132; 84156; 84157; 84439; 84443; 84484; 85025; 87040; 89051; 93005; 93306; 93970; 94640; 94664; 96365; 96375; 97162; 99291; A4649; A9270; J0612; J0696; J1643; J1815; J1940; J2060; J2270; J2405; J2470; J3475; J3490; J7030; J7050; P9047; Q9967; G0480

== ENCOUNTER 2024-05-16 21:17 | Inpatient (IN) | payer MEDICAID, SELFPAY ==
[2024-05-16 21:18] VITALS: BMI 28.3
--- NOTE | 2024-05-16 21:21 | EKG_ITS ---
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: : 1980 Requested By: ED Temporary Provider Order Number: [id number] Reading MD: ED Temporary Provider Measurements Intervals [place] Rate: 67 P: 80 MN: 245 QRS: 71 QRSD: 88 T: 44 QT: 416 QTc: 440 Interpretive Statements SINUS RHYTHM WITH FIRST DEGREE AV BLOCK WITH OCCASIONAL SUPRAVENTRICULAR PREMATURE COMPLEXES LOW QRS VOLTAGE IN EXTREMITY LEADS [QRS DEFLECTION < 0.5 mV IN LIMB LEADS] POSSIBLE ANTERIOR MYOCARDIAL INFARCTION , PROBABLY OLD [30 ms Q WAVE IN V3/V4, OR R < 0.2 mV IN V4] Compared to ECG 02/24/2024 15:01:44 First degree AV block now present Ventricular premature complex(es) no longer present Right-axis deviation no longer present Myocardial infarct finding still present /store/S0/[id number]/ecg/[id number].pdf
[2024-05-16 21:39] VITALS: BP 128/70; PULSE 65; RESP 20; TEMP 36.8; O2SAT 100
--- NOTE | 2024-05-16 21:57 | XR_ITS ---
Examination: PA lateral chest 2 views TECHNIQUE: Upright PA lateral chest 2 views Examination comparison: May 16, 2024 2210 hours INDICATIONS: Chest pain today FINDINGS: Mild enlargement cardiac contour CABG Mild vascular congestion. No lobar pneumonia or pulmonary edema IMPRESSION: Mild vascular congestion
--- NOTE | 2024-05-16 22:01 | PD.EDRME ---
Rapid Medical Screening Exam RME Arrival date/time: 05/16/24 21:17 Chief Complaint: Abdominal Pain Time Seen by Provider: 05/16/24 21:24 Vital signs: Vital Signs Temperature 98.2 F 05/16/24 21:39 Pulse Rate 65 05/16/24 21:39 Respiratory Rate 20 05/16/24 21:39 Blood Pressure 128/70 05/16/24 21:39 Pulse Oximetry (%) 100 05/16/24 21:39 Oxygen Delivery Method Room Air 05/16/24 21:39 Vital signs reviewed by provider: Yes RME Narrative: 43-year-old male with past medical history of cirrhosis, remote CABG, remote DVT (no longer on Eliquis), and diabetes presents with chest pain x 1 day. Patient endorses right upper quadrant pain with nausea and vomiting.
--- NOTE | 2024-05-16 22:30 | PD.EDABDPN ---
ED Abdominal Pain RME/HPI General Chief Complaint: Abdominal Pain Stated complaint: RIGHT ABD PAIN, CHEST PAIN RADIATING TO LEFT ARM Time seen by provider: 05/16/24 21:24 Arrival date/time: 05/16/24 21:17 RME / HPI RME / HPI narrative: 43-year-old male with past medical history of cirrhosis, remote CABG, remote DVT (no longer on Eliquis), and diabetes presents with chest pain x 1 day. Patient endorses right upper quadrant pain with nausea and vomiting. This section includes all my notes and documentations, including HPI, PE, and ED course. Irving Foreman MD HPI: 44-year-old male here to be evaluated with several days of severe abdominal pain radiating into the chest had nausea and vomiting. Was recently diagnosed with cirrhosis. Has history of heavy alcohol use. Still admits to using occasionally. No hematemesis or coffee-ground emesis. No rectal bleeding or tarry stools. Only tiny bowel movement earlier today. With decreased bowel sounds. No other complaints. ROS: All negative except as documented in HPI. Physical Exam: General: Alert and oriented. In severe pain. Eyes: Conjunctivae and lids clear. ENT: No nasal congestion. Neck: Supple. Heart: RRR. Lungs: No respiratory distress. Good air movement. No rhonchi, wheezing, rales. Abdomen: Soft with diffuse tenderness, difficult to localize. Decreased bowel sounds. No distension. No rebound or guarding. Umbilical mass noted. Back: No CVA tenderness. Skin: Warm and dry. Neuro: Alert and oriented X 3. I reviewed all diagnostic test results. My interpretation of the EKG is sinus rhythm with no acute ST?T changes. My interpretation of the chest x-ray is increased vascular congestion. My review of the chest CT report is vascular congestion. My review of the abdominal CT report is cirrhosis and ascites and SBO with incarcerated umbilical hernia. Blood tests and urine tests unremarkable except BNP 1932. At this point, diagnoses include SBO with incarcerated umbilical hernia. Treatment here included Zofran and Toradol and morphine and Dilaudid and NG tube. Significant improvement not noted. I discussed the case with our surgeon and our hospitalist. About the presentation and exam and diagnostics and treatments here. And need of further care in the hospital. Will accept the patient. Irving Foreman MD Related Data Home Medications ?Medication ?Instructions ?Recorded ?Confirmed dapagliflozin propanediol 10 mg 10 mg PO DAILY 02/26/24 02/26/24 tablet (Farxiga) sacubitril 24 mg-valsartan 26 mg 1 tab PO BID 02/26/24 02/26/24 tablet (Entresto) Held on 02/26/24. Instructions: hold untill you see PCP sitagliptin phosphate 50 tab 02/26/24 mg-metformin 1,000 mg tablet (Janumet) Previous Rx's ?Medication ?Instructions ?Recorded blood sugar diagnostic (Blood #100 ea 07/17/19 Glucose Test strips) blood-glucose meter (Blood Glucose #1 ea 07/17/19 Monitoring kit) lancets 30 gauge (BD Ultra-Fine II #100 ea 07/17/19 Lancets) pen needle, diabetic 32 gauge x #50 ea 07/17/19 1/4 (BD Ultra-Fine Micro Pen Needle) apixaban 5 mg tablet (Eliquis) 5 mg PO BID #60 tabs 04/14/22 patiromer calcium sorbitex 8.4 8.4 g PO DAILY #30 ea 02/25/24 gram oral powder packet (Veltassa) lactulose 10 gram/15 mL oral 10 g (15 mL) PO QDAY PRN 02/26/24 solution constipation #473 mL Allergies Allergy/AdvReac Type Severity Reaction Status Date / Time No Known Allergies Allergy Verified 05/16/24 21:18 Course Quality Measures none Orders Category Date Time Status COVID-19 Screening Questionnaire NOW Care 05/17/24 00:[address] Screening NOW Care 05/16/24 22:39 Active Decision to Admit X1 Care 05/17/24 00:36 Completed EKG (ED ONLY) *Do not use* NOW Care 05/16/24 21:21 Completed Insert NG / OG tube NOW Care 05/17/24 00:36 Active Saline [Insert IV] NOW Care 05/16/24 22:32 Active Straight [In and Out Catheter] X1 Care 05/16/24 22:32 Active Consult to General Surgery Stat Cons 05/17/24 00:[address] abdomen pelvis w con Stat Exams 05/16/24 22:[address] angio chest Stat Exams 05/16/24 22:40 Completed EKG (ED Only) Stat Exams 05/16/24 21:21 Draft XR chest 2V Stat Exams 05/16/24 21:57 Completed Alcohol, Blood Medical Stat Lab 05/16/24 22:28 Completed Ammonia Stat Lab 05/16/24 22:28 Completed Amylase Stat Lab 05/16/24 22:28 Completed B-Type Natriuretic Peptide Stat Lab 05/16/24 22:28 Completed Bilirubin,Direct Stat Lab 05/16/24 22:28 Completed CBC Stat Lab 05/16/24 22:28 Completed Comprehensive Metabolic Panel Stat Lab 05/16/24 22:28 Completed D-Dimer Stat Lab 05/16/24 22:28 Completed Drug Screen,Urine Stat Lab 05/16/24 21:57 Ordered Free T4 (Free Thyroxine) Stat Lab 05/16/24 22:28 Completed Lipase Stat Lab 05/16/24 22:28 Completed Magnesium Stat Lab 05/16/24 22:28 Completed Partial Thromboplastin Time Stat Lab 05/16/24 22:28 Completed Prothrombin Time with INR Stat Lab 05/16/24 22:28 Completed Thyroid Stimulating Hormone Stat Lab 05/16/24 22:28 Completed Troponin I Stat Lab 05/16/24 22:28 Completed UA, C/S IF [Urinalysis, C/S if Indicated] Stat Lab 05/16/24 22:35 Ordered HYDROmorphone INJ [Dilaudid Inj] Med 05/17/24 00:36 Discontinued 1 mg IVP X1 ONE Ketorolac Inj [Toradol Inj] Med 05/16/24 22:32 Discontinued 30 mg IVP X1 ONE Morphine Inj Med 05/16/24 22:32 Discontinued 4 mg IVP X1 ONE Morphine Inj Med 05/16/24 22:00 Discontinued 5 mg IM X1 ONE Ondansetron Inj [Zofran Inj] Med 05/16/24 22:32 Discontinued 4 mg IV X1 ONE Ondansetron Inj [Zofran Inj] Med 05/17/24 00:36 Discontinued 4 mg IV X1 ONE Ondansetron Odt [Zofran Odt] Med 05/16/24 21:57 Discontinued 4 mg PO X1 ONE Vital Signs Vital signs: Vital Signs Temperature 98.2 F 05/16/24 21:39 Pulse Rate 65 05/16/24 21:39 Respiratory Rate 20 05/16/24 21:39 Blood Pressure 128/70 05/16/24 21:39 Pulse Oximetry (%) 100 05/16/24 21:39 Oxygen Delivery Method Room Air 05/16/24 21:39 Abdominal Pain MDM Patient data External records reviewed:: [facility] previous records Clinical information provided by:: patient and family Social determinants that could affect healthcare access:: none Patient has the following chronic illnesses:: Cirrhosis How is presenting disease/condition affected by chronic disease/condition?: exacerbated by Evaluation data The following diagnostics were reviewed and interpreted by me:: lab results, radiology exam(s) and EKG tracing(s) Lab and/or radiology exams considered but not ordered:: None Interpretation Summary: SBO Medications / Prescriptions Medications or Prescriptions considered but not ordered:: None Medication administrations:: Medication Administration History Discontinued Medications Hydromorphone HCl (Hydromorphone Inj 2 Mg/Ml Vial) 1 mg IVP X1 ONE Stop: 05/17/24 00:37 Ketorolac Tromethamine (Ketorolac Inj 30 Mg/Ml Vial) 30 mg IVP X1 ONE Stop: 05/16/24 22:33 Last Admin: 05/16/24 23:03 Dose: 30 mg Documented By: EE Morphine Sulfate (Morphine Sulf Inj 10 Mg/Ml Vial) 5 mg IM X1 ONE Stop: 05/16/24 22:01 Last Admin: 05/16/24 23:00 Dose: Not Given Documented By: EE Non-Admin Reason: Allergy Morphine Sulfate (Morphine Sulf Inj 10 Mg/Ml Vial) 4 mg IVP X1 ONE Stop: 05/16/24 22:33 Last Admin: 05/16/24 23:03 Dose: 4 mg Documented By: EE Ondansetron HCl (Ondansetron Odt 4 Mg Tabrap) 4 mg PO X1 ONE; Protocol Stop: 05/16/24 21:58 Last Admin: 05/16/24 23:00 Dose: Not Given Documented By: EE Non-Admin Reason: Cancelled by Provider Ondansetron HCl (Ondansetron Inj 2 Mg/Ml Inj 2 Ml) 4 mg IV X1 ONE; Protocol Stop: 05/16/24 22:33 Last Admin: 05/16/24 23:02 Dose: 4 mg Documented By: EE Ondansetron HCl (Ondansetron Inj 2 Mg/Ml Inj 2 Ml) 4 mg IV X1 ONE; Protocol Stop: 05/17/24 00:37 Zofran and Toradol and morphine and Dilaudid Consultations Consultation(s) initiated? (list below): Yes Consultation #1 (Physician, Specialty, Details): I discussed the case with our surgeon, Dr. Dubose. About the presentation and exam and diagnostics and treatments here. And need of further care in the hospital. Recommended admission to hospitalist. Diagnosis Differential diagnosis abdominal pain: acute appendicitis, calculus of kidney, constipation, diverticulitis, pancreatitis and small bowel obstruction Most likely diagnosis given after review of the tests above:: SBO Admission Indicated Admission indicated?: indicated Explain why admission is indicated or not indicated:: SBO Admission Request Was there a request for admission?: Yes Admission Attestation Admission request attestation: Discussed case with Hospitalist service regarding admission. Discussed patients ED course, exam findings, labs, and radiology results. The Hospitalist [agrees] to accept the patient for admission. Disposition Plan Disposition Plan: Admit Discharge Plan Plan Patient Disposition: Admit Acute Care w/in Hospital Prescriptions/Referrals Prescriptions/Med Rec: No Action (DME) blood-glucose meter [Blood Glucose Monitoring] Kit See Rx Instructions .ROUTE .MEDSUPPLY Qty: 1 0RF Rx Instructions: As directed check BS 3 times a day (DME) blood sugar diagnostic [Blood Glucose Test] Strip See Rx Instructions .ROUTE .MEDSUPPLY Qty: 100 0RF Rx Instructions: As directed check BS 3 times a day (DME) lancets [BD Ultra-Fine II Lancets] 30 gauge misc See Rx Instructions .ROUTE .MEDSUPPLY Qty: 100 0RF Rx Instructions: As directed check BS 3 times a day (DME) pen needle, diabetic [BD Ultra-Fine Micro Pen Needle] 32 gauge x 1/4 needle See Rx Instructions .ROUTE .MEDSUPPLY Qty: 50 0RF Rx Instructions: As directed Eliquis 5 mg tablet 5 mg PO BID Qty: 60 1RF Veltassa 8.4 gram Powder In Packet 8.4 g PO DAILY Qty: 30 0RF lactulose 10 gram/15 mL solution 10 g PO QDAY PRN (Reason: constipation) Qty: 473 2RF Janumet 50-1,000 mg tablet Patient Comments: TAKE 1 TABLET BY MOUTH TWICE A DAY WITH A MEAL dapagliflozin propanediol [Farxiga] 10 mg tablet 10 mg PO DAILY sacubitril-valsartan [Entresto] 24-26 mg Tablet 1 tab PO BID Referrals: Norma Gallegos MD [Primary Care Provider] - In 1 week Problem List Clinical Impression: SBO (small bowel obstruction), Incarcerated umbilical hernia Patient/Caregiver Discharge Instructions Print Language: Georgian Stand Alone Forms: Ellie Award Info., Patient Portal Info Letter
--- NOTE | 2024-05-16 22:39 | XR_ITS ---
Examination: CT abdomen with intravenous contrast CT pelvis with intravenous contrast 2-D coronal reconstructions 2-D sagittal reconstructions Date and time of exam:May 17, 2023 1119 hours INDICATIONS: Right upper abdominal pain today COMPARISON: February 23, 2024. CTDI: vol (mGy) 7.80 DLP: (mGycm) 507 Technique: Multiple axial sections of the abdomen and pelvis have been obtained. 64 slice high-resolution scanner used. 3 mm axial sections have been obtained, post intravenous injection 60 cc Isovue 300 2-D sagittal, coronal reconstructions obtained. Low dose protocols were performed. One or more of the following dose reduction techniques were used; automated exposure control, adjustment of the mA and/or KV according to patient size, use of iterative reconstruction technique. Findings: Moderate enlargement cardiac contour 20 mm liver calcification Liver is irregular in contour, hepatomegaly 22 cm No splenic or pancreatic mass No gallstones [id number] ascites No hydronephrosis Multiple fluid distended small bowel loops with partially incarcerated small bowel in an umbilical hernia The hernia defect is 19 mm Normal appendix Mild thickening of the urinary bladder wall IMPRESSION: Cirrhosis [id number] ascites Small bowel obstruction secondary to incarcerated small bowel in the umbilical hernia
--- NOTE | 2024-05-16 22:40 | XR_ITS ---
Examination: CTA chest with intravenous contrast 2-D reconstructions 3-D reconstructions, vascular Date and time of exam: May 16, 2024 11:19 PM INDICATIONS: Such as pain and shortness of breath today CTDI: vol (mGy) 12.2 DLP: (mGycm) 462 Technique: Multiple axial sections of the thorax have been obtained. 3 mm slice thickness, from below the hemidiaphragms to above the apices of the lungs. Mediastinal and lung density settings have been obtained. 2-D sagittal and coronal reconstructions. 3-D angiographic renderings, 3-D volume renderings, 3D post processing, vascular maximum intensity projections obtained. Contrast administered is 60 cc Isovue 300. Low dose protocols were performed. One or more of the following dose reduction techniques were used; automated exposure control, adjustment of the mA and/or KV according to patient size, use of iterative reconstruction technique. Findings: No thoracic aortic aneurysm dilatation Main pulmonary artery segment 35mm Moderate cardiomegaly No pulmonary artery filling defects Mild vascular congestion No lobar pneumonia or pulmonary edema IMPRESSION: Pulmonary artery hypertension Negative for pulmonary artery emboli Moderate cardiomegaly with mild vascular congestion
[2024-05-16 22:43] LABS: Basophils # (Auto) 0.1 Thou/mm3 (0.0-0.2); Basophils % (Auto) 1 % (0-2.5); Eosinophils # (Auto) 0.1 Thou/mm3 (0.0-0.5); Eosinophils % (Auto) 1 % (0-10); Hematocrit 35.1 % (41.0-53.0); Hemoglobin 11.7 g/dL (13.5-16.0); Immature Granulocytes % (Auto) 0 % (0-0); Immature Granulocytes Auto 0.01 Thou/mm3 (0.00-0.00); Lymphocytes # (Auto) 0.7 Thou/mm3 (1.0-4.8); Lymphocytes % (Auto) 13 % (10-50); Mean Corpuscular HGB Conc 33.3 g/dl (31.0-37.0); Mean Corpuscular Hemoglobin 29.9 pg (25.0-35.0); Mean Corpuscular Volume 90 fL (80-100); Monocytes # (Auto) 0.3 Thou/mm3 (0.0-0.8); Monocytes % (Auto) 6 % (0-12); Neutrophils # (Auto) 4.4 Thou/mm3 (1.8-7.7); Neutrophils % (Auto) 79 % (37-80); Nucleated Red Blood Cell % 0 /100 WBC (0); Platelet Count 148 Thou/mm3 (140-440); RDW Standard Deviation 52.6 fL (35.1-43.9); Red Blood Count 3.91 Miln/mm3 (4.50-5.90); White Blood Count 5.6 Thou/mm3 (3.8-10.6)
[2024-05-16] MEDS: ONDANSETRON INJ 2 MG/ML INJ 2 ML 4 MG IV (23:02)
[2024-05-16] MEDS: KETOROLAC INJ 30 MG/ML VIAL IVP (23:03)
[2024-05-16] MEDS: MORPHINE SULF INJ 10 MG/ML VIAL 4 MG IVP (23:03)
[2024-05-16 23:06] LABS: Alanine Aminotransferase 12 U/L (10-49); Albumin, Serum 4.1 gm/dL (3.5-5.0); Alcohol, Blood Medical < 10.0 mg/dL (0-10.0); Alkaline Phosphatase 112 U/L (46-116); Amylase 100 U/L (30-118); Anion Gap 15 (7-16); Aspartate Amino Transferase 21 U/L (0-34); BUN/Creatinine Ratio 22 Ratio (12-20); Bilirubin,Direct 0.7 mg/dL (0.0-0.3); Bilirubin,Total 1.5 mg/dL (0.3-1.2); Blood Urea Nitrogen 39 mg/dL (9-23); Calcium 9.3 mg/dL (8.3-10.6); Calcium (Corrected) 9.3 mg/dL (8.5-10.1); Carbon Dioxide 17.5 mMol/L (20.0-31.0); Chloride 99 mMol/L (98-107); Creatinine (Component) 1.8 mg/dL (0.6-1.3); Free T4 (Free Thyroxine) 1.14 ng/dL (0.89-1.76); Globulin 4.3 gm/dL (2.3-3.5); Glucose 191 mg/dL (74-106); Lipase 51 U/L (12-53); Magnesium 1.6 mg/dL (1.6-2.6); Osmolality,Calculated 277 (275-295); Potassium 4.6 mMol/L (3.4-5.1); Sodium 131 mMol/L (136-145); Thyroid Stimulating Hormone 6.48 uIU/mL (0.55-4.78); Total Protein 8.4 gm/dL (5.7-8.2); Troponin I < 0.020 ng/mL (0.0-0.045); eGFR 47 See Note
[2024-05-16 23:13] LABS: Ammonia < 10 uMol/L (11-32); B-Type Natriuretic Peptide 1932 pg/mL (0-100)
[2024-05-16 23:15] LABS: D-Dimer 712 ng/mL (<600); Prothrombin Time 14.3 Seconds (9.0-12.2)
[2024-05-16 23:16] LABS: INR 1.3 (0.9-1.3); Partial Thromboplastin Time 30.4 Seconds (22.0-36.0)
[2024-05-17] VITALS (19 sets, daily range): BP systolic 112–159; BP diastolic 69–94; PULSE 57–89; RESP 14–95; TEMP 36.1–36.7; O2SAT 94–100; BMI 32.8
--- NOTE | 2024-05-17 00:55 | XR_ITS ---
Examination: Abdomen sonogram, Limited Date and time of exam: May 17, 2024 0201 hours INDICATIONS: Right upper abdominal pain beginning 2 days ago Technique: Real-time ricci scale transabdominal sonographic images of the upper abdomen obtained. Findings: Negative for gallstones Gallbladder wall 0.2 cm with fluid adjacent to the gallbladder wall Common bile ducts are 0.2 cm Pancreatic head 3.1 cm Liver 15.7 cm lobular contour, ascitic fluid around the liver Normal hepatopedal portal venous flow Patent IVC IMPRESSION: Negative for cholelithiasis Cirrhosis Ascites Fluid around the gallbladder likely secondary to the patient's ascites
[2024-05-17] MEDS: HYDROmorphone INJ 2 MG/ML VIAL 1 MG IVP (00:56)
[2024-05-17] MEDS: ONDANSETRON INJ 2 MG/ML INJ 2 ML 4 MG IV (00:56)
--- NOTE | 2024-05-17 01:00 | PC.NURSE ---
ATTEMPTED TO PLACE NG TUBE IN PT, DURING PROCEDURE PT EXPERIENCED NOSE BLEED TO LEFT NARE. IMMEDIATELY PULLED OUT NG AND INFORMED DR EDUARDO. PER DR EDUARDO HOLD OFF ON NG UNTIL DR FRY ASSESSES PT.
--- NOTE | 2024-05-17 02:20 | PC.NURSE ---
DR FRY AT BEDSIDE ASSESSING PT, INFORMED DR FRY PT UNABLE TOLERATE NG PLACEMENT AND STATED OKAY TO HOLD OFF ON NG FOR NOW.
[2024-05-17 02:23] LABS: Collection Type, Urine Clean Catch
--- NOTE | 2024-05-17 02:32 | PD.SURCONS ---
HPI Consult details History of present illness: 44M with HTN, DM, and CHF, CAD s/p CABG in 2013, cirrhosis and known umbilical hernia presenting with abdominal pain, nausea/vomiting. Pt reports pain began suddenly yesterday at the site of his known umbilical hernia, and the hernia felt firm. He vomited most recently at 7pm and his last BM was yesterday. CT shows 19mm umbilical defect containing small bowel. Pt underwent attempted placement of NG in ER but it was aborted due to epistaxis PMH: HTN, DM, CAD, cirrhosis PSHx: CABG Meds: includes ASA 81, no other antiplt or anticoagulation as of now Allergies: NKDA Review of Systems Review of Systems ROS Unobtainable: All systems reviewed & no additional complaints except as documented Meds Home Medications and Allergies Home Medications ?Medication ?Instructions ?Recorded ?Confirmed ?Type dapagliflozin propanediol 10 mg 10 mg PO DAILY 02/26/24 02/26/24 History tablet (Farxiga) sacubitril 24 mg-valsartan 26 mg 1 tab PO BID 02/26/24 02/26/24 History tablet (Entresto) Held on 02/26/24. Instructions: hold untill you see PCP sitagliptin phosphate 50 tab 02/26/24 History mg-metformin 1,000 mg tablet (Janumet) Allergies Allergy/AdvReac Type Severity Reaction Status Date / Time No Known Allergies Allergy Verified 05/16/24 21:18 Exam Vital Signs Temp Pulse Resp BP Pulse Ox O2 Del Method 97.8 F 65 16 132/88 H 98 Room Air 05/17/24 00:01 05/17/24 00:01 05/17/24 00:01 05/17/24 00:01 05/17/24 00:01 05/17/24 00:01 Constitutional Constitutional: mild distress Routine Respiratory Exam Respiratory: Present no resp distress Routine Abdominal Exam Abdominal: Present soft and hernia (Incarcerated umbilical hernia tender to palpation, no overlying skin changes) Results Results: Laboratory Laboratory results: results reviewed Results: Imaging CT scan - abdomen: report reviewed and image reviewed Assessment & Plan Plan 44M with HTN, DM, CHF, CAD status post CABG in 2013 and cirrhosis presenting with an incarcerated umbilical hernia. Patient is high risk for surgery in the setting of his comorbid conditions, however without surgery he is at risk for bowel ischemia. I explained risks of surgery including bleeding, infection, bowel obstruction, hernia recurrence, as well as the possibility of a bowel resection. All questions were answered and patient is agreeable to proceed OR emergently for evaluation of incarcerated umbilical hernia, possible bowel resection
--- NOTE | 2024-05-17 02:33 | PD.RESHP ---
Documentation for date of: 05/17/24 HPI History of Present Illness Chief complaint: abdominal pain History of present illness: The patient is a 44-year-old male with a previous medical history of liver cirrhosis CHF, CAD status post CABG, hypertension, diabetes, remote previous DVT, alcohol use, methamphetamine use who came in with abdominal pain that started approximately 2 days ago. Pain is mostly located in the epigastric and right upper quadrant area, patient reports that sometimes it is increasing in intensity. He reports nausea, vomiting that started also 2 days ago. Today he vomited twice, he was able to eat and keep down the food after, drink 1 can of beer today, had small bowel movement and passed gases. In the ED CT abdomen and pelvis showed signs of liver cirrhosis, mild to moderate ascites and small bowel obstruction secondary to incarcerated small bowel in the umbilical hernia. 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 ED course: Blood pressure 128/70, heart rate 65, saturating well on room air. Labs showed hemoglobin 11.7, WBC 5.6, platelets 148, sodium 131, creatinine 1.8, glucose 191, total bilirubin was 1.5, BNP 1932, total protein 8.4 g/dL. UA and U tox are pending. Abdomen/pelvis CTA showed small bowel obstruction secondary to incarcerated umbilical hernia, mild to moderate ascites and cirrhosis. CT chest showed pulmonary artery hypertension, negative for PE. Dr. Dubose, general surgeon was consulted and will proceed with urgent operation due to incarcerated small bowel umbilical hernia. PAtient is going to be admitted for treatment and managment of incarcerated umbilical hernia. Social history: occasionally smoke, drinks alcohol - last drink was yesterday, denies taking recreational substances. Med rec: pending, takes aspirin 81 mg Allergies: denies Surgical history: CABG in 2013 Review of Systems Review of Systems Systems Reviewed: All systems reviewed, normal except as documented Past Medical History Past Medical History NEUROLOGIC: Positive Cerebrovascular Accident CARDIAC: Positive Cardiac Disorders, Myocardial Infarction, Coronary Artery Disease, Hypercholesterolemia, Deep Vein Thrombosis and Hypertension RESPIRATORY: Positive Asthma and Bronchitis GASTROINTESTINAL: Positive Gastrointestinal Disorders and Gastroesophageal Reflux Disease ENDOCRINE: Positive Endocrine Disorders and Diabetes Mellitus Type 2 Family History FAMILY HISTORY: Positive Family Cardiac Disorders Surgical History SURGICAL: Positive Coronary Artery Bypass Graft Social History SMOKING STATUS: Current some day smoker SUBSTANCE USE: methamphetamine Exam Vital Signs Temp Pulse Resp BP Pulse Ox O2 Del Method 97.8 F 65 16 132/88 H 98 Room Air 05/17/24 00:01 05/17/24 00:01 05/17/24 00:01 05/17/24 00:01 05/17/24 00:01 05/17/24 00:01 Narrative Exam Physical Exam General: Awake and in pain. HEENT: Normocephalic, atraumatic, mucous membranes moist. Heart: Regular rate and rhythm, no murmurs. Lungs: Clear to auscultation with no wheezing or crackles. Abdomen: Distended, diffusely tender, positive bowel sounds, in the umbilical area firm mass with absent bowel sounds over it. ? Neurologic: Alert and oriented x3, no gross neurological deficit, and patient able to move all 4 extremities. Extremities: No edema. Skin: No rash or ecchymoses. Results: Labs 05/16/24 22:28 05/16/24 22:28 Labs: Short CBC 05/16/24 Range/Units 22:28 WBC 5.6 (3.8-10.6) Thou/mm3 Hgb 11.7 L (13.5-16.0) g/dL Hct 35.1 L (41.0-53.0) % Plt Count 148 (140-440) Thou/mm3 BMP 05/16/24 22:28 Sodium 131 L Potassium 4.6 Chloride 99 Carbon Dioxide 17.5 L BUN 39 H Creatinine 1.8 H Glucose 191 H Calcium 9.3 Cardiac Enzymes 05/16/24 Range/Units 22:28 Troponin I < 0.020 (0.0-0.045) ng/mL Liver Function 05/16/24 Range/Units 22:28 Total Bilirubin 1.5 H (0.3-1.2) mg/dL Direct Bilirubin 0.7 H (0.0-0.3) mg/dL AST 21 (0-34) U/L ALT 12 (10-49) U/L Alkaline Phosphatase 112 (46-116) U/L Albumin 4.1 (3.5-5.0) gm/dL Quality Measures Quality Measures none Medications Home Medications and Allergies Home Medications ?Medication ?Instructions ?Recorded ?Confirmed ?Type dapagliflozin propanediol 10 mg 10 mg PO DAILY 02/26/24 02/26/24 History tablet (Farxiga) sacubitril 24 mg-valsartan 26 mg 1 tab PO BID 02/26/24 02/26/24 History tablet (Entresto) Held on 02/26/24. Instructions: hold untill you see PCP sitagliptin phosphate 50 tab 02/26/24 History mg-metformin 1,000 mg tablet (Janumet) Allergies Allergy/AdvReac Type Severity Reaction Status Date / Time No Known Allergies Allergy Verified 05/16/24 21:18 Visit Medications Acetaminophen (Acetaminophen 325 Mg Tablet) 650 mg PO Q6H PRN PRN Reason: Fever >100.3 or pain 1-3 Stop: 06/16/24 02:25 Acetaminophen (Acetaminophen Supp 650 Mg Supp) 650 mg MD Q6HR PRN PRN Reason: Fever > 100.3 or pain 1-3 Stop: 06/16/24 02:25 Hydromorphone HCl (Hydromorphone Inj 2 Mg/Ml Vial) 1 mg IVP Q2H PRN PRN Reason: PAIN SCALE 7-10 (Severe Stop: 05/22/24 02:25 Prothrombin Complex Concent ( Human) 1,850 unit/ Sterile Water 100 ml/ IV Miscellaneous Supplies 100 mls @ 400 mls/hr IV X1 ONE Stop: 05/17/24 02:45 Morphine Sulfate (Morphine Sulf Inj 10 Mg/Ml Vial) 2 mg IVP Q4HR PRN PRN Reason: PAIN SCALE 4-6 (Moderate Stop: 05/22/24 02:30 Sennosides (Senna Tablet) 1 tab PO QDAY PRN; Protocol PRN Reason: constipation Stop: 06/16/24 02:25 Discontinued Medications Hydromorphone HCl (Hydromorphone Inj 2 Mg/Ml Vial) 1 mg IVP X1 ONE Stop: 05/17/24 00:37 Last Admin: 05/17/24 00:56 Dose: 1 mg Ketorolac Tromethamine (Ketorolac Inj 30 Mg/Ml Vial) 30 mg IVP X1 ONE Stop: 05/16/24 22:33 Last Admin: 05/16/24 23:03 Dose: 30 mg Morphine Sulfate (Morphine Sulf Inj 10 Mg/Ml Vial) 5 mg IM X1 ONE Stop: 05/16/24 22:01 Last Admin: 05/16/24 23:00 Dose: Not Given Morphine Sulfate (Morphine Sulf Inj 10 Mg/Ml Vial) 4 mg IVP X1 ONE Stop: 05/16/24 22:33 Last Admin: 05/16/24 23:03 Dose: 4 mg Ondansetron HCl (Ondansetron Odt 4 Mg Tabrap) 4 mg PO X1 ONE; Protocol Stop: 05/16/24 21:58 Last Admin: 05/16/24 23:00 Dose: Not Given Ondansetron HCl (Ondansetron Inj 2 Mg/Ml Inj 2 Ml) 4 mg IV X1 ONE; Protocol Stop: 05/16/24 22:33 Last Admin: 05/16/24 23:02 Dose: 4 mg Ondansetron HCl (Ondansetron Inj 2 Mg/Ml Inj 2 Ml) 4 mg IV X1 ONE; Protocol Stop: 05/17/24 00:37 Last Admin: 05/17/24 00:56 Dose: 4 mg Assessment & Plan Plan The patient is a 44-year-old male with a previous medical history of liver cirrhosis CHF, CAD status post CABG, hypertension, diabetes, remote previous DVT, alcohol use, methamphetamine use who came in with abdominal pain that started approximately 2 days ago. #Incarcerated umbilical hernia #Small bowel obstruction Patient is going to undergo hernia repair and possible resection based on viability of bowel. Plan: - surgery consulted, surgery is going to be done urgently - NPO - NG/OG tube - Pain control as needed #History of CAD status post CABG #History of CHF Patient is taking aspirin 81 mg every day. Plan: ? Aspirin is on hold for now due to the planned surgery #History of liver cirrhosis, compensated Tbilli 1.5. Imaging showed mild to moderate ascitis. Transaminases level is normal. Plan: - monitor CMP #History of hypertension Plan: ? Blood pressure in general normal range, home blood pressure medications on hold for now #History of type 2 diabetes Plan: ? Sliding scale insulin with Accu-Cheks ? Hypoglycemia protocol #history of alcohol use #history of methamphetamine use Plan: ? Stable Health maintenance: FEN: NPO DVT prophylaxis: SCDs GI prophylaxis: none Dispo: MedSurg CODE STATUS: Full Code Plan of care discussed with attending Dr. Doty, PGY-[address] De La Rosa. Lexi Mattson MD, PGY 1. Attending Provider Attestation/Addendum 44-year-old male patient with coronary artery disease status post CABG, cirrhosis, ascites, history of substance use, congestive heart failure, diabetes mellitus was admitted for incarcerated umbilical hernia. Patient will be admitted. Surgical evaluation was requested from Dr. Thomas.
[2024-05-17 02:34] LABS: Bilirubin,Urine Negative (Negative); Blood,Urine 1+ (Negative); Clarity,Urine Clear (Clear/Hazy); Color,Urine Yellow (Lt Yel-Yel); Culture Indicated,Urine Not Indicated; Glucose, Urine 4+ (Negative); Hyaline Casts,Urine < 1 /hpf (0-1); Ketones,Urine Negative (Negative); Leukocyte Esterase,Urine Negative (Negative); Nitrite,Urine Negative (Negative); Protein,Urine 3+ (Neg - Trace); RBC,Urine 6 /hpf (0-3); Specific Gravity,Urine 1.032 (1.001-1.035); Squamous Epithelial Cell,Urine < 1 /hpf (0-5); WBC,Urine 2 /hpf (0-5)
[2024-05-17 02:35] LABS: Sperm,Urine Present
--- NOTE | 2024-05-17 03:21 | PRELIM_ITS ---
Right upper quadrant abdominal ultrasound with Limited Doppler. May 17, 2024 0201 hours Clinical history: RUQ tenderness No prior study is available for comparison. Findings: The liver demonstrates heterogeneous echogenicity and is irregular, measuring 15.7 cm. No intrahepatic biliary ductal dilatation. The main portal vein is patent and demonstrates hepatopetal flow.There is a calcified area in the right lobe of liver, likely representing an old calcified granuloma.No gallbladder calculus or wall thickening. There is small amount of pericholecystic fluid. The common bile duct is normal in caliber at 2 mm.The main portal vein is patent and demonstrates hepatopetal flow.The pancreas is unremarkable to the extent visualized. A small amount offree fluid is seen in the hepatorenal pouch. Impression: Heterogeneous echogenicity of the liver, suggestive of hepatic cirrhosis. Mild ascites. No evidence of cholelithiasis, wall thickening or biliary dilatation.Small amount of pericholecystic fluid, likely related to ascites. Report Electronically Signed By: Henrry Urias 05/17/2024 3:21:13 AM [EST]
[2024-05-17 03:33] LABS: Amphetamine/Methamp Scrn,U Positive (Negative); Barbiturate Screen,Urine Negative (Negative); Benzodiazepines Screen,Urine Negative (Negative); Benzoylecgonine Screen, Ur Negative (Negative); Fentanyl Screen,Urine Negative (Negative); Opiate Screen,Urine Positive (Negative); THC Screen,Urine Negative (Negative)
--- NOTE | 2024-05-17 04:52 | PD.SUROPNT ---
Date of Procedure 05/17/24 Pre Op Diagnosis Incarcerated umbilical hernia Post Op Diagnosis Same Procedure Reduction of incarcerated umbilical herniated contents, primary repair of umbilical hernia Findings 19mm umbilical hernia with incarcerated small bowel which appeared viable after being released Procedure Description After discussion of risks and benefits, patient was brought to the operating room, SCDs were placed and general anesthesia was induced. A Alvarenga catheter was placed and patient received preoperative antibiotics. He was prepped and draped in the usual sterile fashion. After timeout a curvilinear supraumbilical incision was made with a #15 blade. The tissues were dissected with a combination of blunt dissection and electrocautery. The hernia sac was soon encountered and it was incised with Metzenbaum scissors with return of ascites. Approximately 450 cc of ascitic fluid was suctioned in total. The hernia defect was reached and noted to be approximately 19 mm consistent with a CT scan. It was widened a few millimeters toward the left lateral edge so that the small bowel could be eviscerated. The small bowel that had been incarcerated was slightly dusky in appearance, however a few minutes after it was freed and had a warm lap pad placed on it. It was pink and showed appropriate peristalsis. The small bowel was returned to the abdomen and the fascia was closed with interrupted 0 Ethibond sutures in a [id number] fashion. The wound was irrigated and hemostasis was achieved with electrocautery. The incision was infiltrated with 20 cc of half percent Marcaine. The umbilicus was tacked down to the fascia using a 2-0 Vicryl suture. The skin was approximated with kyle and covered with Telfa, gauze and Tegaderm. Patient was extubated and brought to PACU in stable condition Pathology / specimen Other (Hernia sac) Estimated Blood Loss 20 Surgeon Karrie Dubose MD Surgical Staff Operation Date: 05/17/24 03:45 Case Staff Anesthesiologist: Andrew Blum RN First Assistant: Jess Hernandez
--- NOTE | 2024-05-17 05:15 | SUR.PHASEI ---
pr received to [facility] 1. vss. breathing even and unlabored. no ss pain or nausea. bleeding to both sides of lower lip. per anesthesia, patient bit self. dressing to abdomen cdi gauze with tegaderm. report from nurse palacio and dr bird.
--- NOTE | 2024-05-17 06:15 | SUR.PHASEI ---
report called to nurse sherly golden. pt more awake and alert. denies pain and nausea. vss. pt on 2 l nc. dressing remains cdi with abdominal binder in place. fc draining to gravity minimal out put. transported to room via bed.
[2024-05-17] MEDS: SODIUM CHLORIDE 0.9% 1000 ML 1,000 ML 50 ML IV (06:43)
[2024-05-17] MEDS: ACETAMINOPHEN IVPB 1,000 MG/100 ML VIAL 250 MG IV ×3 (06:45→17:23)
[2024-05-17 08:04] LABS: Basophils % (Auto) 1 % (0-2.5); Eosinophils % (Auto) 0 % (0-10); Hematocrit 36.4 % (41.0-53.0); Hemoglobin 12.1 g/dL (13.5-16.0); Immature Granulocytes % (Auto) 0 % (0-0); Immature Granulocytes Auto 0.01 Thou/mm3 (0.00-0.00); Lymphocytes # (Auto) 0.4 Thou/mm3 (1.0-4.8); Lymphocytes % (Auto) 7 % (10-50); Mean Corpuscular HGB Conc 33.2 g/dl (31.0-37.0); Mean Corpuscular Hemoglobin 29.7 pg (25.0-35.0); Mean Corpuscular Volume 89 fL (80-100); Monocytes # (Auto) 0.1 Thou/mm3 (0.0-0.8); Monocytes % (Auto) 3 % (0-12); Neutrophils # (Auto) 4.6 Thou/mm3 (1.8-7.7); Neutrophils % (Auto) 89 % (37-80); Nucleated Red Blood Cell % 0 /100 WBC (0); Platelet Count 149 Thou/mm3 (140-440); RDW Standard Deviation 53.6 fL (35.1-43.9); Red Blood Count 4.08 Miln/mm3 (4.50-5.90); White Blood Count 5.2 Thou/mm3 (3.8-10.6)
[2024-05-17 08:27] LABS: Alanine Aminotransferase 10 U/L (10-49); Alkaline Phosphatase 104 U/L (46-116); Anion Gap 11 (7-16); Aspartate Amino Transferase 20 U/L (0-34); BUN/Creatinine Ratio 20 Ratio (12-20); Bilirubin,Total 1.2 mg/dL (0.3-1.2); Blood Urea Nitrogen 41 mg/dL (9-23); Calcium 9.1 mg/dL (8.3-10.6); Calcium (Corrected) 9.1 mg/dL (8.5-10.1); Carbon Dioxide 24.1 mMol/L (20.0-31.0); Chloride 98 mMol/L (98-107); Creatinine (Component) 2.1 mg/dL (0.6-1.3); Globulin 4.2 gm/dL (2.3-3.5); Glucose 137 mg/dL (74-106); Magnesium 1.8 mg/dL (1.6-2.6); Osmolality,Calculated 278 (275-295); Potassium 4.7 mMol/L (3.4-5.1); Sodium 133 mMol/L (136-145); Total Protein 8.2 gm/dL (5.7-8.2); eGFR 39 See Note
--- NOTE | 2024-05-17 09:18 | PC.SS ---
Patient David Martel is a 44 Year old male admitted for SBO, Hernia Incarceration. SS met with patient, however patient was asleep. SS contacted patient's ex, , Sandy Ortiz who she reports is patient surrogate decision maker ,[phone]. She reports patient lives at home with her parents. She reports patient does not utilize any source of DME to assist with ambulation. Patient is able to complete all ADL's independently. Choice of pharmacy is [facility]. PCP is [facility]. At time of discharge Sandy reports she will provide transportation. No further needs at this time. Next of Kin: Ex-, Yesi Ortiz Discharge Plan: Home
--- NOTE | 2024-05-17 10:04 | PC.SS ---
SS follow up note; Patient had Surgery last night, possible discharge home in 2-3 days. Surgery following patient.
[2024-05-17 15:57] LABS: Albumin, Serum 3.9 gm/dL (3.5-5.0); Anion Gap 11 (7-16); BUN/Creatinine Ratio 20 Ratio (12-20); Blood Urea Nitrogen 43 mg/dL (9-23); Calcium 8.8 mg/dL (8.3-10.6); Calcium (Corrected) 8.9 mg/dL (8.5-10.1); Carbon Dioxide 19.9 mMol/L (20.0-31.0); Chloride 100 mMol/L (98-107); Creatinine (Component) 2.2 mg/dL (0.6-1.3); Glucose 168 mg/dL (74-106); Osmolality,Calculated 277 (275-295); Phosphorous 6.3 mg/dL (2.4-5.1); Potassium 5.5 mMol/L (3.4-5.1); Sodium 131 mMol/L (136-145); eGFR 37 See Note
--- NOTE | 2024-05-17 16:44 | ESPR_ITS ---
<Statement entered by Maikol Billy MD - 05/19/24 07:36> Senior Resident Attestation: I supervised/discussed management plan with cad intern physician Dr. Kirkland, and was involved in the care of this patient. I personally saw and examined the patient and discussed the assessment and plan with the entire medicine team, including my attending. I agree with the assessment and plan as documented. Patient's care was discussed with attending physician, Dr. Hidalgo. Maikol Billy MD PGY-2. Documentation for date of: 05/17/24 Subjective Subjective Interval history: Patient is an overnight admit. Overnight patient also underwent reduction of incarcerated umbilical hernia contents and primary repair of the umbilical hernia. Patient is status post surgery patient is seen this morning and he is somnolent and unable to engage in much of conversation. Upon waking him up patient is moaning however denies pain. Patient is wearing abdominal binder monitor and diet is advanced to clear liquid. vitals are stable, significant labs include BUN 39 and creatinine 1.8. Surgery is following, will continue to monitor renal function for improvement. Exam Vital Signs Temp Pulse Resp BP Pulse Ox O2 Del Method O2 Flow Rate 97.0 F 76 18 127/79 98 Nasal Cannula 3 05/17/24 16:00 05/17/24 16:00 05/17/24 16:00 05/17/24 16:00 05/17/24 16:00 05/17/24 16:00 05/17/24 16:00 Narrative Exam GENERAL: somnolent s/p surgery NEURO: no focal neurological deficits HEENT: Atraumatic, Normocephalic. mucous membranes moist. Eyes open, symmetrical, & clear HEART: Normal Heart Sounds LUNGS: Clear to auscultation with no wheezing or crackles. ABDOMEN: s/p sbdominal surgery, pt has abdominal binder on SKIN: No Rash or ecchymoses EXTREMITIES: No edema, tenderness, able to move all 4 extremities, pedal pulses palpated Objective Labs 05/18/24 04:22 05/18/24 04:22 Labs: Laboratory Results - last 24 hr 05/16/24 05/17/24 05/17/24 22:28 02:01 07:28 WBC 5.6 5.2 RBC 3.91 L 4.08 L Hgb 11.7 L 12.1 L Hct 35.1 L 36.4 L MCV 90 89 MCH 29.9 29.7 MCHC 33.3 33.2 RDW Std Deviation 52.6 H 53.6 H Plt Count 148 149 Neut % (Auto) 79 89 H Lymph % (Auto) 13 7 L Jackson % (Auto) 6 3 Eos % (Auto) 1 0 Baso % (Auto) 1 1 Neut # (Auto) 4.4 4.6 Lymph # (Auto) 0.7 L 0.4 L Jackson # (Auto) 0.3 0.1 Eos # (Auto) 0.1 0.0 Baso # (Auto) 0.1 0.0 Immature Gran # (Auto) 0.01 H 0.01 H Absolute Nucleated RBC 0.00 0.00 Immature Gran % 0 0 Nucleated RBC % 0 0 PT 14.3 H INR 1.3 APTT 30.4 D-Dimer 712 H Sodium 131 L 133 L Potassium 4.6 4.7 Chloride 99 98 Carbon Dioxide 17.5 L 24.1 Anion Gap 15 11 BUN 39 H 41 H Creatinine 1.8 H 2.1 H Estim Creat Clear Calc 49.0 L 42.0 L eGFR 47 L 39 L BUN/Creatinine Ratio 22 H 20 Glucose 191 H 137 H D Calculated Osmolality 277 278 Calcium 9.3 9.1 Corrected Calcium 9.3 9.1 Phosphorus Magnesium 1.6 1.8 Total Bilirubin 1.5 H 1.2 Direct Bilirubin 0.7 H AST 21 20 ALT 12 10 Alkaline Phosphatase 112 104 Ammonia < 10 L Troponin I < 0.020 B-Natriuretic Peptide 1932 H* Total Protein 8.4 H 8.2 Albumin 4.1 4.0 Globulin 4.3 H 4.2 H Albumin/Globulin Ratio 1.0 L 1.0 L Amylase 100 Lipase 51 TSH 6.48 H Free T4 1.14 Ur Collection Type Clean Catch Urine Color Yellow Urine Clarity Clear Urine pH 6.0 Ur Specific [place] 1.032 Urine Protein 3+ A Urine Glucose (UA) 4+ A Urine Ketones Negative Urine Blood 1+ A Urine Nitrite Negative Urine Bilirubin Negative Urine Urobilinogen (Auto) 2.0 Ur Leukocyte Esterase Negative Urine RBC 6 H Urine WBC 2 Ur Squamous Epith Cells < 1 Urine Bacteria None Hyaline Casts < 1 Urine Sperm Present A Ur Culture Indicated? Not Indicated Urine Opiates Screen Positive A Urine Fentanyl Screen Negative Ur Barbiturates Screen Negative U Amphetamin/Meth Scrn Positive A U Benzodiazepines Scrn Negative U Cocaine Metab Screen Negative U Marijuana (THC) Screen Negative Ethyl Alcohol < 10.0 05/17/24 15:19 WBC RBC Hgb Hct MCV MCH MCHC RDW Std Deviation Plt Count Neut % (Auto) Lymph % (Auto) Jackson % (Auto) Eos % (Auto) Baso % (Auto) Neut # (Auto) Lymph # (Auto) Jackson # (Auto) Eos # (Auto) Baso # (Auto) Immature Gran # (Auto) Absolute Nucleated RBC Immature Gran % Nucleated RBC % PT INR APTT D-Dimer Sodium 131 L Potassium 5.5 H D Chloride 100 Carbon Dioxide 19.9 L Anion Gap 11 BUN 43 H Creatinine 2.2 H Estim Creat Clear Calc 43.0 L eGFR 37 L BUN/Creatinine Ratio 20 Glucose 168 H Calculated Osmolality 277 Calcium 8.8 Corrected Calcium 8.9 Phosphorus 6.3 H Magnesium Total Bilirubin Direct Bilirubin AST ALT Alkaline Phosphatase Ammonia Troponin I B-Natriuretic Peptide Total Protein Albumin 3.9 Globulin Albumin/Globulin Ratio Amylase Lipase TSH Free T4 Ur Collection Type Urine Color Urine Clarity Urine pH Ur Specific [place] Urine Protein Urine Glucose (UA) Urine Ketones Urine Blood Urine Nitrite Urine Bilirubin Urine Urobilinogen (Auto) Ur Leukocyte Esterase Urine RBC Urine WBC Ur Squamous Epith Cells Urine Bacteria Hyaline Casts Urine Sperm Ur Culture Indicated? Urine Opiates Screen Urine Fentanyl Screen Ur Barbiturates Screen U Amphetamin/Meth Scrn U Benzodiazepines Scrn U Cocaine Metab Screen U Marijuana (THC) Screen Ethyl Alcohol Quality Measures Quality Measures none Assessment & Plan Assessment Current Active Medications: Generic Name Dose Route Start Last Admin Trade Name Freq PRN Reason Stop Dose Admin Dextrose 25 ml 05/17/24 02:57 Dextrose 50%-Water Inj 50 Ml Syringe IV 06/16/24 02:56 Q15MIN PRN BG 50-70 responsive npo pt Dextrose 50 ml 05/17/24 02:57 Dextrose 50%-Water Inj 50 Ml Syringe IV 06/16/24 02:56 Q15MIN PRN BG <50 OR BG <70 & pt unresponsive Glucagon 1 mg 05/17/24 02:57 Glucagon Inj 1 Mg Vial IM Q15MIN PRN BG <70, and no IV access Hydromorphone HCl 1 mg 05/17/24 02:26 Hydromorphone Inj 2 Mg/Ml Vial IVP 05/22/24 02:25 Q2H PRN PAIN SCALE 7-10 (Severe Acetaminophen 1,000 mg in 100 mls @ 250 mls/hr 05/17/24 04:35 05/17/24 11:27 Ofirmev Inj IV 05/17/24 18:23 250 mls/hr Q6HR JUDSON Administration Sodium Chloride 1,000 mls @ 50 mls/hr 05/17/24 06:31 05/17/24 06:43 Ns IV 06/16/24 06:30 50 mls/hr .Q20H JUDSON Administration Insulin Human Lispro 0 unit 05/17/24 06:00 05/17/24 11:28 Insulin Lispro (Admelog) 1 Unit/0.01 Ml Unit SC 06/16/24 05:59 Not Given Q6HR JUDSON Protocol Morphine Sulfate 2 mg 05/17/24 02:31 Morphine Sulf Inj 10 Mg/Ml Vial IVP 05/22/24 02:30 Q4HR PRN PAIN SCALE 4-6 (Moderate Ondansetron HCl 4 mg 05/17/24 06:31 Ondansetron Inj 2 Mg/Ml Inj 2 Ml IV 06/16/24 06:30 Q6HR PRN NAUSEA OR VOMITING Protocol Plan Mr. Martel is a 44-year-old male with a previous medical history of liver cirrhosis CHF, CAD status post CABG, hypertension, diabetes, remote previous DVT, alcohol use, methamphetamine use who came in with abdominal pain that started approximately 2 days ago. #Incarcerated umbilical hernia s/p umbilical hernia repair #Small bowel obstruction- improved -Patient underwent reduction of incarcerated umbilical hernia contents and primary repair of the umbilical hernia Plan: -surgery consulted, and following -Pain control as needed -Advance diet as needed #Acute Kidney injury on CKD -On admission Pt Cr is 1.8-> 2.2, Pt's baseline is 1.6 in myriam -Kidney function likely worsened due to dehydration as pt was NPO, Unable to give additional fluids due to pt's severe systolic dysfunction. -Will continue to monitor daily labs as pt's oral intake is increased #History of CAD status post CABG #History of CHF -Patient is taking aspirin 81 mg every day. -Last echo done on 02/23/24 Dilated LV. Severe systolic dysfunction. Moderate septal LVH. Global hypokinesis. Estimated EF 30-35% Cannot determine diastolic function due to Afib. Moderate RV dilatation. Mild RV dysfunction. Estimated RVSP 54mmHg. Modertae PAH Mild biatrial dialtation. Pleural effusion present. Mild MR, Mild to moderate TR. IVC dilated Plan: -Aspirin is on hold due surgery - #History of liver cirrhosis, compensated T-twila 1.5. Imaging showed mild to moderate ascitis. Transaminases level is normal. Plan: - monitor CMP #History of hypertension Plan: ?Blood pressure within normal range, will hold antihypertensive medications #History of type 2 diabetes -A1c 6.2 on 02/23/24 Plan: -Sliding scale insulin with Accu-Cheks -Hypoglycemia protocol #history of alcohol use #history of methamphetamine use Plan: ? Stable Health Maintenance Disposition: Medsurg s/p umbilical hernia repair DVT Prophylaxis: SCD QSHIFT GI Prophylaxis: not indicated Diet: clear liquid diet Lines: Peripheral lines Assessment and plan discussed with my senior resident Dr. Billy & attending physician Dr. Gwen Kirkland (PGY-1)- Internal medicine resident Attending Provider Attestation/Addendum I attest that I was physically present for the evaluation, physical examination, lab and imaging review of the patient with the residents. I discussed the case with the residents and agree with the findings and plans of care as documented above. Patient is a 44 years old male with past medical history of liver cirrhosis, CHF, CAD, status post CABG, hypertension, diabetes, previous DVT, alcohol use, methamphetamine use who was admitted overnight for management of small bowel obstruction.? Patient also had an incarcerated umbilical hernia, underwent reduction of incarcerated umbilical hernia contents and primary repair of umbilical hernia with general surgery.? At bedside today, patient appears comfortable.? States that his pain is well-controlled with analgesics.? He has not had a bowel movement or has not passed gas yet.? Nausea has improved, tolerating water.? Vitals are stable, saturating well on room air.? Kidney function noted to be worsening from 39/1.8-41/2.1 today.? Patient also has BNP of 1932.? We will start him on IV Lasix and reevaluate the kidney function.? Bilirubin is slowly improving.? We will continue with analgesics, antiemetics, clear liquid diet and monitor him closely. Sophia Hidalgo MD
[2024-05-17] MEDS: FUROSEMIDE INJ 10 MG/ML 4ML VIAL 40 MG IVP (17:21)
[2024-05-17] MEDS: INSULIN HUM REGULAR 1 UNIT/0.01 ML (PER UNIT) 10 UNIT IV (17:22)
[2024-05-17] MEDS: DEXTROSE 50%-WATER INJ 50 ML SYRINGE IV (17:22)
--- NOTE | 2024-05-17 19:58 | PC.NURSE ---
called pharmacist re 4th dose of tylenol iv.
[2024-05-18] VITALS (7 sets, daily range): BP systolic 112–134; BP diastolic 69–88; PULSE 65–75; RESP 18–98; TEMP 36.1–36.7; O2SAT 18–98
[2024-05-18] MEDS: ACETAMINOPHEN IVPB 1,000 MG/100 ML VIAL 250 MG IV (00:35)
[2024-05-18 05:45] LABS: Basophils % (Auto) 0 % (0-2.5); Eosinophils % (Auto) 0 % (0-10); Hematocrit 34.1 % (41.0-53.0); Hemoglobin 11.2 g/dL (13.5-16.0); Immature Granulocytes % (Auto) 0 % (0-0); Immature Granulocytes Auto 0.04 Thou/mm3 (0.00-0.00); Lymphocytes # (Auto) 0.6 Thou/mm3 (1.0-4.8); Lymphocytes % (Auto) 6 % (10-50); Mean Corpuscular HGB Conc 32.8 g/dl (31.0-37.0); Mean Corpuscular Hemoglobin 29.8 pg (25.0-35.0); Mean Corpuscular Volume 91 fL (80-100); Monocytes # (Auto) 0.4 Thou/mm3 (0.0-0.8); Monocytes % (Auto) 4 % (0-12); Neutrophils # (Auto) 9.1 Thou/mm3 (1.8-7.7); Neutrophils % (Auto) 90 % (37-80); Nucleated Red Blood Cell % 0 /100 WBC (0); Platelet Count 152 Thou/mm3 (140-440); RDW Standard Deviation 54.4 fL (35.1-43.9); Red Blood Count 3.76 Miln/mm3 (4.50-5.90); White Blood Count 10.2 Thou/mm3 (3.8-10.6)
--- NOTE | 2024-05-18 06:00 | PC.NURSE ---
pt on room air all night.
[2024-05-18 06:25] LABS: Alanine Aminotransferase 8 U/L (10-49); Albumin/Globulin Ratio 1.1 (1.2-2.2); Alkaline Phosphatase 89 U/L (46-116); Anion Gap 11 (7-16); Aspartate Amino Transferase 20 U/L (0-34); BUN/Creatinine Ratio 20 Ratio (12-20); Bilirubin,Total 1.2 mg/dL (0.3-1.2); Blood Urea Nitrogen 51 mg/dL (9-23); Carbon Dioxide 20.2 mMol/L (20.0-31.0); Chloride 98 mMol/L (98-107); Creatinine (Component) 2.5 mg/dL (0.6-1.3); Estimated Creatinine Clearance 37.8 mL/min (>60); Globulin 3.8 gm/dL (2.3-3.5); Glucose 125 mg/dL (74-106); Magnesium 1.9 mg/dL (1.6-2.6); Osmolality,Calculated 273 (275-295); Phosphorous 5.8 mg/dL (2.4-5.1); Potassium 5.4 mMol/L (3.4-5.1); Sodium 129 mMol/L (136-145); Total Protein 7.8 gm/dL (5.7-8.2); eGFR 32 See Note
--- NOTE | 2024-05-18 09:55 | PC.SS ---
SS follow up note; Diet being Advanced. Possible discharge in 1-2 days.
--- NOTE | 2024-05-18 11:36 | ESPR_ITS ---
<Statement entered by eTn Faye MD - 05/19/24 08:17> Patient continues to improve. Patient tolerating diet and will advance per surgery. Patient's pain is tolerable. Case discussed with team. Ten Faye MD PGY3. Documentation for date of: 05/18/24 Subjective Subjective Interval history: No acute overnight events. Pt is seen and examined at bedside this morning. Pt is awake and resting comfortably. Pt denies any abdominal pain, however pt has not had a bowel movement but endorses to passing gas. pt requested to remove morton cath so that he is able to get out of bed and use the bathroom. Pt is tolerating clear liquid diet and advanced diet is ordered by surgery. pt has no other complains. Vitals are stable and labs are significant for Na+ 129, potassium 5.4, bUN 51, Cr 2.5, nephrology is consulted. Exam Vital Signs Temp Pulse Resp BP Pulse Ox O2 Del Method O2 Flow Rate 97.1 F 67 18 118/80 98 Room Air 3 05/18/24 08:00 05/18/24 08:00 05/18/24 08:00 05/18/24 08:00 05/18/24 08:00 05/18/24 08:00 05/18/24 00:00 Narrative Exam GENERAL: somnolent s/p surgery NEURO: no focal neurological deficits HEENT: Atraumatic, Normocephalic. mucous membranes moist. Eyes open, symmetrical, & clear HEART: Normal Heart Sounds LUNGS: Clear to auscultation with no wheezing or crackles. ABDOMEN: s/p sbdominal surgery, pt has abdominal binder on SKIN: No Rash or ecchymoses EXTREMITIES: No edema, tenderness, able to move all 4 extremities, pedal pulses palpated Objective Labs 05/19/24 05:04 05/19/24 05:04 Labs: Laboratory Results - last 24 hr 05/17/24 05/18/24 15:19 04:22 WBC 10.2 D RBC 3.76 L Hgb 11.2 L Hct 34.1 L MCV 91 MCH 29.8 MCHC 32.8 RDW Std Deviation 54.4 H Plt Count 152 Neut % (Auto) 90 H Lymph % (Auto) 6 L [place] % (Auto) 4 Eos % (Auto) 0 Baso % (Auto) 0 Neut # (Auto) 9.1 H Lymph # (Auto) 0.6 L [place] # (Auto) 0.4 Eos # (Auto) 0.0 Baso # (Auto) 0.0 Immature Gran # (Auto) 0.04 H Absolute Nucleated RBC 0.00 Immature Gran % 0 Nucleated RBC % 0 Sodium 131 L 129 L Potassium 5.5 H D 5.4 H Chloride 100 98 Carbon Dioxide 19.9 L 20.2 Anion Gap 11 11 BUN 43 H 51 H Creatinine 2.2 H 2.5 H Estim Creat Clear Calc 43.0 L 37.8 L eGFR 37 L 32 L BUN/Creatinine Ratio 20 20 Glucose 168 H 125 H Calculated Osmolality 277 273 L Calcium 8.8 9.0 Corrected Calcium 8.9 9.0 Phosphorus 6.3 H 5.8 H Magnesium 1.9 Total Bilirubin 1.2 AST 20 ALT 8 L Alkaline Phosphatase 89 Total Protein 7.8 Albumin 3.9 4.0 Globulin 3.8 H Albumin/Globulin Ratio 1.1 L Quality Measures Quality Measures none Assessment & Plan Assessment Current Active Medications: Generic Name Dose Route Start Last Admin Trade Name Freq PRN Reason Stop Dose Admin Dextrose 25 ml 05/17/24 02:57 Dextrose 50%-Water Inj 50 Ml Syringe IV 06/16/24 02:56 Q15MIN PRN BG 50-70 responsive npo pt Dextrose 50 ml 05/17/24 02:57 Dextrose 50%-Water Inj 50 Ml Syringe IV 06/16/24 02:56 Q15MIN PRN BG <50 OR BG <70 & pt unresponsive Glucagon 1 mg 05/17/24 02:57 Glucagon Inj 1 Mg Vial IM Q15MIN PRN BG <70, and no IV access Hydromorphone HCl 1 mg 05/17/24 02:26 Hydromorphone Inj 2 Mg/Ml Vial IVP 05/22/24 02:25 Q2H PRN PAIN SCALE 7-10 (Severe Sodium Chloride 1,000 mls @ 50 mls/hr 05/17/24 06:31 05/17/24 06:43 Ns IV 06/16/24 06:30 50 mls/hr .Q20H JUDSON Administration Insulin Human Lispro 0 unit 05/17/24 06:00 05/18/24 06:22 Insulin Lispro (Admelog) 1 Unit/0.01 Ml Unit SC 06/16/24 05:59 Not Given Q6HR JUDSON Protocol Morphine Sulfate 2 mg 05/17/24 02:31 Morphine Sulf Inj 10 Mg/Ml Vial IVP 05/22/24 02:30 Q4HR PRN PAIN SCALE 4-6 (Moderate Ondansetron HCl 4 mg 05/17/24 06:31 Ondansetron Inj 2 Mg/Ml Inj 2 Ml IV 06/16/24 06:30 Q6HR PRN NAUSEA OR VOMITING Protocol Plan Mr. Martel is a 44-year-old male with a previous medical history of liver cirrhosis CHF, CAD status post CABG, hypertension, diabetes, remote previous DVT, alcohol use, methamphetamine use who came in with abdominal pain that started approximately 2 days ago. #Incarcerated umbilical hernia s/p umbilical hernia repair #Small bowel obstruction- improved -Patient underwent reduction of incarcerated umbilical hernia contents and primary repair of the umbilical hernia Plan: -surgery consulted, and following -Pain control as needed -Advance diet as needed #Acute Kidney injury on CKD -On admission Pt Cr is 1.8-> 2.2, Pt's baseline is 1.6 in feb -Kidney function likely worsened due to dehydration as pt was NPO, Unable to give additional fluids due to pt's severe systolic dysfunction. -Will continue to monitor daily labs as pt's oral intake is increased -Nephrology is consulted, appreciate recommendations -Pt is started on NS 1L maintenence fluids #History of CAD status post CABG #History of CHF -Patient is taking aspirin 81 mg every day. -Last echo done on 02/23/24 Dilated LV. Severe systolic dysfunction. Moderate septal LVH. Global hypokinesis. Estimated EF 30-35% Cannot determine diastolic function due to Afib. Moderate RV dilatation. Mild RV dysfunction. Estimated RVSP 54mmHg. Modertae PAH Mild biatrial dialtation. Pleural effusion present. Mild MR, Mild to moderate TR. IVC dilated Plan: -Aspirin is on hold due surgery #History of liver cirrhosis, compensated T-twila 1.5. Imaging showed mild to moderate ascitis. Transaminases level is normal. Plan: - monitor CMP #History of hypertension Plan: ?Blood pressure within normal range, will hold antihypertensive medications #History of type 2 diabetes -A1c 6.2 on 02/23/24 Plan: -Sliding scale insulin with Accu-Cheks -Hypoglycemia protocol #history of alcohol use #history of methamphetamine use Plan: ? Stable Health Maintenance Disposition: Medsurg s/p umbilical hernia repair DVT Prophylaxis: SCD QSHIFT GI Prophylaxis: not indicated Diet: clear liquid diet Lines: Peripheral lines Assessment and plan discussed with my senior resident Dr. Faye & attending physician Dr. Gwen Kirkland (PGY-1)- Internal medicine resident Attending Provider Attestation/Addendum I attest that I was physically present for the evaluation, physical examination, lab and imaging review of the patient with the residents. I discussed the case with the residents and agree with the findings and plans of care as documented above. At bedside today, patient is states he is feeling better. He still has some mild pain but controlled with analgesics. He has been passing gas. Kidney function noted to be worsening compared to yesterday BUN/creatinine of 51/2.5 today. His potassium is still 5.4. Nephrology consulted, recommended starting patient on IV hydration, started on normal saline at 80 cc/h.. Patient is tolerating his clear liquid diet well, diet advanced. General surgery following, appreciate recommendations. Sophia Hidalgo MD
--- NOTE | 2024-05-18 14:34 | ESCONSULT_ITS ---
HPI Data of Consult Consult date: 05/18/24 Requesting Physician: Alem Hidalgo MD Admitting Provider: Juwan Doty MD Attending Provider: Alem Hidalgo MD Primary Care Provider: Noram Gallegos MD Consult Narrative Reason for consult: VIOLETA History of present illness: Mr. Holland is a 44 year-old male with PMHx of CHF with EF around 33%, alcoholic liver cirrhosis, CAD s/p CABG, HTN, DM, remove DVT, METH use, who presented with abdominal pain and found to have incarcerated small bowel in umbilical hernia. He underwent uncomplicated surgical repair on 05/14, with no significant blood loss. He has been feeling well post-op, currently on clear liquid and tolerating well. The primary team has consulted nephrology for worsening renal function. He presented to the hospital with CR 1.8 with baseline 1.6. CR has worsened since admission, currently CR 2.5. EGFR also decreased since admission 47 > 32 with baseline around 55. His urine output has not been documented, however he reports no changes in urine ouput, currently urinating about 1.5L daily. UA showed 3+ protein, 1+ blood, and 4+ glucose. Utox was positive for AMPH. Hgb 11.2 around baseline, PLN wnl, no leukocytosis. BNP 1932 and chronically elevated. Troponin normal. AST 20, ALT 8, Tb 1.2. Phosphorus 5.8, sodium 129, potassium 5.4. A1C 6.2 from 02/2024. Vitals are WNL. CTA chest showed PAH, cardiomegaly with mild vascular congestion. Abd US showed cirrhosis, ascites and fluid around gallbladder. EKG showed sinus rhyth with 1st degree block but no acute ST changes. Denies recent or new fever/illness, hematuria, frothy urine, dysuria, kidney stones, or previous diagnosis of renal stones. No family history of renal disease. He sees a size mixer in [place] (does not know the name) for management of CHF. He has a history of alcohol abuse and meth use. States currently only drinking about a 6-pack of beer weekly. Utox was positive for AMPH. States his diabetes undercontrol without insulin use, currently only taking JANUMET. Med rec pending, but appears he may be on GDMT for HF. His last renal ultrasound was done in 02/2024 showing mild quita parenchymal scaring and cortical thinning. No current cutter out outpatient. cc:: cc: Alem Hidalgo MD Exam Vital Signs Temp Pulse Resp BP Pulse Ox O2 Del Method O2 Flow Rate 97.2 F 72 18 134/88 H 98 Room Air 3 05/18/24 12:00 05/18/24 12:00 05/18/24 12:00 05/18/24 12:00 05/18/24 12:00 05/18/24 12:00 05/18/24 00:00 Narrative Exam GENERAL * Normal appearing adult male, NAD HEENT * NCAT.?ANI. Oral mucosa is dry. mild scleral icterus bilaterally. NECK * Supple, nontender, no thyromegaly, no meningismus, no JVD, no step offs CHEST * RRR, no m/g/r * CTAB, no w/r/r. Symmetrical chest rise. No intercostal subcostal retraction * Atraumatic, nontender, no crepitus, symmetrical expansion. ABDOMEN * Soft, flat, nontender. No guarding/rebound tenderness/masses. * Bowel sounds presents. * Abdominal binder in place and intact. EXTREMITIES * No edema/cyanosis.? SKIN * Warm and dry, no jaundice/rashes. NEUROMUSCULAR * No lumbar or midline, no CVA, no paraspinal muscle spasm or tenderness. * Moves all 4 extremities well, with full ROM and good CSM. * PATEL x4, CN II-XII grossly intact. * No focal neurologic deficits. PSYCHIATRY * Normal mood and affect, cooperative, no SI or HI or hallucinations. Results Labs 05/18/24 04:22 05/18/24 04:22 Labs: Short CBC 05/18/24 Range/Units 04:22 WBC 10.2 D (3.8-10.6) Thou/mm3 Hgb 11.2 L (13.5-16.0) g/dL Hct 34.1 L (41.0-53.0) % Plt Count 152 (140-440) Thou/mm3 BMP 05/17/24 05/18/24 15:19 04:22 Sodium 131 L 129 L Potassium 5.5 H D 5.4 H Chloride 100 98 Carbon Dioxide 19.9 L 20.2 BUN 43 H 51 H Creatinine 2.2 H 2.5 H Glucose 168 H 125 H Calcium 8.8 9.0 Liver Function 05/17/24 05/18/24 Range/Units 15:19 04:22 Total Bilirubin 1.2 (0.3-1.2) mg/dL AST 20 (0-34) U/L ALT 8 L (10-49) U/L Alkaline Phosphatase 89 (46-116) U/L Albumin 3.9 4.0 (3.5-5.0) gm/dL Quality Measures Quality Measures none Medications Home Medications and Allergies Home Medications ?Medication ?Instructions ?Recorded ?Confirmed ?Type dapagliflozin propanediol 10 mg 10 mg PO DAILY 5 02/26/24 History tablet (Farxiga) sacubitril 24 mg-valsartan 26 mg 1 tab PO BID 02/26/24 05/18/24 History tablet (Entresto) Held on 02/26/24. Instructions: hold untill you see PCP sitagliptin phosphate 50 1 tab PO BID 02/26/24 History mg-metformin 1,000 mg tablet (Janumet) Allergies Allergy/AdvReac Type Severity Reaction Status Date / Time No Known Allergies Allergy Verified 05/16/24 21:18 Visit Medications Dextrose (Dextrose 50%-Water Inj 50 Ml Syringe) 25 ml IV Q15MIN PRN PRN Reason: BG 50-70 responsive npo pt Stop: 06/16/24 02:56 Dextrose (Dextrose 50%-Water Inj 50 Ml Syringe) 50 ml IV Q15MIN PRN PRN Reason: BG <50 OR BG <70 & pt unresponsive Stop: 06/16/24 02:56 Glucagon (Glucagon Inj 1 Mg Vial) 1 mg IM Q15MIN PRN PRN Reason: BG <70, and no IV access Hydromorphone HCl (Hydromorphone Inj 2 Mg/Ml Vial) 1 mg IVP Q2H PRN PRN Reason: PAIN SCALE 7-10 (Severe Stop: 05/22/24 02:25 Sodium Chloride (Ns) 1,000 mls @ 50 mls/hr IV .Q20H JUDSON Stop: 06/16/24 06:30 Last Admin: 05/17/24 06:43 Dose: 50 mls/hr Insulin Human Lispro (Insulin Lispro (Admelog) 1 Unit/0.01 Ml Unit) 0 unit SC Q6HR JUDSON; Protocol Stop: 06/16/24 05:59 Last Admin: 05/18/24 06:22 Dose: Not Given Morphine Sulfate (Morphine Sulf Inj 10 Mg/Ml Vial) 2 mg IVP Q4HR PRN PRN Reason: PAIN SCALE 4-6 (Moderate Stop: 05/22/24 02:30 Ondansetron HCl (Ondansetron Inj 2 Mg/Ml Inj 2 Ml) 4 mg IV Q6HR PRN; Protocol PRN Reason: NAUSEA OR VOMITING Stop: 06/16/24 06:30 Discontinued Medications Acetaminophen (Acetaminophen 325 Mg Tablet) 650 mg PO Q6H PRN PRN Reason: Fever >100.3 or pain 1-3 Stop: 06/16/24 02:25 Acetaminophen (Acetaminophen Supp 650 Mg Supp) 650 mg NC Q6HR PRN PRN Reason: Fever > 100.3 or pain 1-3 Stop: 06/16/24 02:25 Dextrose (Dextrose 50%-Water Inj 50 Ml Syringe) 50 ml IV X1 ONE Stop: 05/17/24 16:42 Last Admin: 05/17/24 17:22 Dose: 50 ml Fentanyl Citrate (Fentanyl Cit Inj 50 Mcg/Ml Amp 2ml) 25 mcg IV Q5M PRN PRN Reason: PAIN SCALE 1-3 (mild Stop: 05/17/24 06:35 Furosemide (Furosemide Inj 10 Mg/Ml 4ml Vial) 40 mg IVP X1 ONE Stop: 05/17/24 16:42 Last Admin: 05/17/24 17:21 Dose: 40 mg Hydromorphone HCl (Hydromorphone Inj 2 Mg/Ml Vial) 1 mg IVP X1 ONE Stop: 05/17/24 00:37 Last Admin: 05/17/24 00:56 Dose: 1 mg Hydromorphone HCl (Hydromorphone Inj 2 Mg/Ml Vial) 0.2 mg IV Q5M PRN PRN Reason: PAIN 1-6 (mild-mod Stop: 05/17/24 06:35 Prothrombin Complex Concent ( Human) 1,850 unit/ Sterile Water 100 ml/ IV Miscellaneous Supplies 100 mls @ 400 mls/hr IV X1 ONE Stop: 05/17/24 02:45 Acetaminophen (Ofirmev Inj) 1,000 mg in 100 mls @ 250 mls/hr IV Q6HR JUDSON Stop: 05/18/24 00:00 Last Admin: 05/18/24 00:35 Dose: 250 mls/hr Insulin Human Regular (Insulin Hum Regular 1 Unit/0.01 Ml (Per Unit)) 10 unit IV X1 ONE Stop: 05/17/24 16:42 Last Admin: 05/17/24 17:22 Dose: 10 unit Ketorolac Tromethamine (Ketorolac Inj 30 Mg/Ml Vial) 30 mg IVP X1 ONE Stop: 05/16/24 22:33 Last Admin: 05/16/24 23:03 Dose: 30 mg Morphine Sulfate (Morphine Sulf Inj 10 Mg/Ml Vial) 5 mg IM X1 ONE Stop: 05/16/24 22:01 Last Admin: 05/16/24 23:00 Dose: Not Given Morphine Sulfate (Morphine Sulf Inj 10 Mg/Ml Vial) 4 mg IVP X1 ONE Stop: 05/16/24 22:33 Last Admin: 05/16/24 23:03 Dose: 4 mg Morphine Sulfate (Morphine Sulf Inj 10 Mg/Ml Vial) 3 mg IV Q5M PRN PRN Reason: PAIN SCALE 4-6 (Moderate Stop: 05/17/24 06:35 Ondansetron HCl (Ondansetron Odt 4 Mg Tabrap) 4 mg PO X1 ONE; Protocol Stop: 05/16/24 21:58 Last Admin: 05/16/24 23:00 Dose: Not Given Ondansetron HCl (Ondansetron Inj 2 Mg/Ml Inj 2 Ml) 4 mg IV X1 ONE; Protocol Stop: 05/16/24 22:33 Last Admin: 05/16/24 23:02 Dose: 4 mg Ondansetron HCl (Ondansetron Inj 2 Mg/Ml Inj 2 Ml) 4 mg IV X1 ONE; Protocol Stop: 05/17/24 00:37 Last Admin: 05/17/24 00:56 Dose: 4 mg Ondansetron HCl (Ondansetron Inj 2 Mg/Ml Inj 2 Ml) 4 mg IV X1 ONE Stop: 05/17/24 04:34 Sennosides (Senna Tablet) 1 tab PO QDAY PRN; Protocol PRN Reason: constipation Stop: 06/16/24 02:25 Assessment & Plan Plan This is a 44 year-old male with PMHx of CHF with EF around 33%, alcoholic liver cirrhosis, CAD s/p CABG, HTN, DM, remove DVT, METH use, POD2 incarcerated hernia repair. Has VIOLETA on CKD 3A. Has VIOLETA on CKD 3A likely in settings of dehydration and low oral intake. Will proceed with 1L NS at 80 cc/h and monitor renal function closely. VIOLETA on CKD 3A Hx of CHF with EF around 33%, on GDMT. Hx of liver cirrhosis, meth and alcohol abuse. POD2 uncomplicated hernia repair without significant bleed. Has declining renal function with CR 2.5 (baseline 1.6), EGFR 32 (baseline 55). Reports good urine output, about 1.5 L daily. Has dry oral mucusa on exam, no quita LE edema, lungs CTAB. Likely developing VIOLETA on top of CKD 3A. ? Renally dose meds, avoid overdiuresis and NEPHROTOXINS ? Daily CMP ? 1L NS maint at 80cc/hr Hyperkalemia Potassium 5.5 > 5.4. Likely 2/2 VIOLETA. Asymmptomatic, no EKG changes. ? KAYEXALATE 15 mg X1 Mild Hypovolemic Hyposomolar Hyponatremia Serum osm 273. Sodium 129, likely poor oral hydration 2/2 NPO. Anticipate improvement with fluids as above. ? Pending urine sodium Hyperphosphatermia Likely dehydrational. Anticipate improvement as above. Incarcerated umbilical hernia s/p umbilical hernia repair Small bowel obstruction T2DM history of alcohol use Methamphetamine use CAD status post CABG Managed as per primary team. Patient case was discussed with attending, Dr. Miguel Angel Corral, DO PGYI Attending Provider Attestation/Addendum Patient seen and examined with resident physician Dr. Merlos. Note reviewed, agree with findings and recommendations. Worsening of her creatinine since admission. Noted patient received CT chest with contrast to rule out PE on Suspect prerenal azotemia superimposed on contrast nephropathy. Patient received so far 4.5 L of fluids. Clinically seems to be slightly dehydrated. Will give another 1 liter normal saline. If ATN wait for Renal recovery. Noted hyponatremia, azotemia, hyperkalemia, hyperphosphatemia-consistent with VIOLETA/ATN. CT abdomen did not show any hydronephrosis. Thank you Sophia for allowing me to participate in the care of Mr. Martel
--- NOTE | 2024-05-18 14:40 | ESPR_ITS ---
Documentation for date of: 05/18/24 Subjective Subjective Brief History: 44M with HTN, DM, and CHF, CAD s/p CABG in 2012, cirrhosis and known umbilical hernia presenting with abdominal pain, nausea/vomiting. Pt reports pain began suddenly yesterday at the site of his known umbilical hernia, and the hernia felt firm. He vomited most recently at 7pm and his last BM was yesterday. CT shows 19mm umbilical defect containing small bowel. Pt underwent attempted kishor cement of NG in ER but it was aborted due to epistaxis PMH: HTN, DM, CAD, cirrhosis PSHx: CABG Meds: includes ASA 81, no other antiplt or anticoagulation as of now Allergies: NKDA Narrative: Pt reports 1/10 abdominal pain, no nausea, tolerating liquids and passing gas but has not yet had a BM. Cr uptrending, nephrology consulted Exam Vital Signs Temp Pulse Resp BP Pulse Ox O2 Del Method O2 Flow Rate 97.2 F 72 18 134/88 H 98 Room Air 3 05/18/24 12:00 05/18/24 12:00 05/18/24 12:00 05/18/24 12:00 05/18/24 12:00 05/18/24 12:00 05/18/24 00:00 Constitutional Constitutional: no acute distress Routine Respiratory Exam Respiratory: Present no resp distress Routine Abdominal Exam Abdominal: Present soft; Absent tenderness or distended Results Results: Laboratory Laboratory results: results reviewed Assessment & Plan Plan 44M with HTN, DM, CHF, CAD status post CABG in 2012 and cirrhosis presenting with an incarcerated umbilical hernia s/p emergent reduction and repair 05/17, gradually recovering Advance to bland/renal diet Appreciate nephrology recs Procedures Procedures Reduction of incarcerated umbilical herniated contents, primary repair of umbilical hernia
[2024-05-18] MEDS: SOD POLYSTYRENE SULFON SUSP 15 GM/60 ML BTL PO (15:34)
[2024-05-18] MEDS: SODIUM CHLORIDE 0.9% 1000 ML 1,000 ML 80 ML IV (15:34)
[2024-05-19] VITALS: BP 122/77; PULSE 64; RESP 19; TEMP 36.6; O2SAT 98
[2024-05-19 01:24] LABS: Sodium,Urine Random 24.1 mMol/L (20.0-110.0)
[2024-05-19 04:00] VITALS: BP 108/65; PULSE 62; RESP 18; TEMP 36.6; O2SAT 98
[2024-05-19 06:32] LABS: Basophils % (Auto) 0 % (0-2.5); Eosinophils # (Auto) 0.1 Thou/mm3 (0.0-0.5); Eosinophils % (Auto) 1 % (0-10); Hematocrit 36.2 % (41.0-53.0); Hemoglobin 11.9 g/dL (13.5-16.0); Immature Granulocytes % (Auto) 0 % (0-0); Immature Granulocytes Auto 0.02 Thou/mm3 (0.00-0.00); Lymphocytes # (Auto) 1.1 Thou/mm3 (1.0-4.8); Lymphocytes % (Auto) 12 % (10-50); Mean Corpuscular HGB Conc 32.9 g/dl (31.0-37.0); Mean Corpuscular Hemoglobin 29.2 pg (25.0-35.0); Mean Corpuscular Volume 89 fL (80-100); Monocytes # (Auto) 0.8 Thou/mm3 (0.0-0.8); Monocytes % (Auto) 9 % (0-12); Neutrophils # (Auto) 6.9 Thou/mm3 (1.8-7.7); Neutrophils % (Auto) 78 % (37-80); Nucleated Red Blood Cell % 0 /100 WBC (0); Platelet Count 173 Thou/mm3 (140-440); RDW Standard Deviation 53.1 fL (35.1-43.9); Red Blood Count 4.07 Miln/mm3 (4.50-5.90); White Blood Count 8.9 Thou/mm3 (3.8-10.6)
--- NOTE | 2024-05-19 06:36 | ESPR_ITS ---
Documentation for date of: 05/19/24 Subjective Subjective Interval history: Mr. Holland is a 44 year-old male with PMHx of CHF with EF around 33%, alcoholic liver cirrhosis, CAD s/p CABG, HTN, DM, remove DVT, METH use, who presented with abdominal pain and found to have incarcerated small bowel in umbilical hernia. He underwent uncomplicated surgical repair on 05/14, with no significant blood loss. He has been feeling well post-op, currently on clear liquid and tolerating well. The primary team has consulted nephrology for worsening renal function. He presented to the hospital with CR 1.8 with baseline 1.6. CR has worsened since admission, currently CR 2.5. EGFR also decreased since admission 47 > 32 with baseline around 55. His urine output has not been documented, however he reports no changes in urine ouput, currently urinating about 1.5L daily. UA showed 3+ protein, 1+ blood, and 4+ glucose. Utox was positive for AMPH. Hgb 11.2 around baseline, PLN wnl, no leukocytosis. BNP 1932 and chronically elevated. Troponin normal. AST 20, ALT 8, Tb 1.2. Phosphorus 5.8, sodium 129, potassium 5.4. A1C 6.2 from 02/2024. Vitals are WNL. CTA chest showed PAH, cardiomegaly with mild vascular congestion. Abd US showed cirrhosis, ascites and fluid around gallbladder. EKG showed sinus rhyth with 1st degree block but no acute ST changes. Denies recent or new fever/illness, hematuria, frothy urine, dysuria, kidney stones, or previous diagnosis of renal stones. No family history of renal disease. He sees a registered nurse bone marrow transplant in [place] (does not know the name) for management of CHF. He has a history of alcohol abuse and meth use. States currently only drinking about a 6-pack of beer weekly. Utox was positive for AMPH. States his diabetes undercontrol without insulin use, currently only taking JANUMET. Med rec pending, but appears he may be on GDMT for HF. 05/20/2024 examined at bedside. Feeling well today. Denies fever, chills, headaches, chest pain, sob, cough, GI or urinary symptoms. Renal function improving after 1 L NS. CR 2.0, BUN 52, GFR 42, sodium 133, potassium 5.2. No signs of volume overload on exam. Continue with oral hydration. Exam Vital Signs Temp Pulse Resp BP Pulse Ox O2 Del Method O2 Flow Rate 98 F 62 18 108/65 98 Room Air 3 05/19/24 04:00 05/19/24 04:00 05/19/24 04:00 05/19/24 04:00 05/19/24 04:00 05/19/24 04:00 05/18/24 00:00 Narrative Exam GENERAL * Normal appearing adult male, NAD HEENT * NCAT.?ANI. Oral mucosa is moist. NECK * Supple, nontender, no thyromegaly, no meningismus, no JVD, no step offs CHEST * RRR, no m/g/r * CTAB, no w/r/r. Symmetrical chest rise. No intercostal subcostal retraction * Atraumatic, nontender, no crepitus, symmetrical expansion. ABDOMEN * Soft, flat, nontender. No guarding/rebound tenderness/masses. * Bowel sounds presents. * Abdominal binder in place and intact. EXTREMITIES * No edema/cyanosis.? SKIN * Warm and dry, no jaundice/rashes. NEUROMUSCULAR * No lumbar or midline, no CVA, no paraspinal muscle spasm or tenderness. * Moves all 4 extremities well, with full ROM and good CSM. * PATEL x4, CN II-XII grossly intact. * No focal neurologic deficits. PSYCHIATRY * Normal mood and affect, cooperative, no SI or HI or hallucinations. Objective Labs 05/19/24 05:04 05/19/24 05:04 Labs: Laboratory Results - last 24 hr 05/19/24 00:29 Ur Random Sodium 24.1 Quality Measures Quality Measures none Assessment & Plan Assessment Current Active Medications: Generic Name Dose Route Start Last Admin Trade Name Freq PRN Reason Stop Dose Admin Dextrose 25 ml 05/17/24 02:57 Dextrose 50%-Water Inj 50 Ml Syringe IV 06/16/24 02:56 Q15MIN PRN BG 50-70 responsive npo pt Dextrose 50 ml 05/17/24 02:57 Dextrose 50%-Water Inj 50 Ml Syringe IV 06/16/24 02:56 Q15MIN PRN BG <50 OR BG <70 & pt unresponsive Glucagon 1 mg 05/17/24 02:57 Glucagon Inj 1 Mg Vial IM Q15MIN PRN BG <70, and no IV access Hydromorphone HCl 1 mg 05/17/24 02:26 Hydromorphone Inj 2 Mg/Ml Vial IVP 05/22/24 02:25 Q2H PRN PAIN SCALE 7-10 (Severe Sodium Chloride 1,000 mls @ 50 mls/hr 05/17/24 06:31 05/17/24 06:43 Ns IV 06/16/24 06:30 50 mls/hr .Q20H JUDSON Administration Insulin Human Lispro 0 unit 05/18/24 21:00 05/18/24 23:21 Insulin Lispro (Admelog) 1 Unit/0.01 Ml Unit SC 06/17/24 20:59 Not Given ACHS JUDSON Protocol Morphine Sulfate 2 mg 05/17/24 02:31 Morphine Sulf Inj 10 Mg/Ml Vial IVP 05/22/24 02:30 Q4HR PRN PAIN SCALE 4-6 (Moderate Ondansetron HCl 4 mg 05/17/24 06:31 Ondansetron Inj 2 Mg/Ml Inj 2 Ml IV 06/16/24 06:30 Q6HR PRN NAUSEA OR VOMITING Protocol Plan This is a 44 year-old male with PMHx of CHF with EF around 33%, alcoholic liver cirrhosis, CAD s/p CABG, HTN, DM, remove DVT, METH use, POD2 incarcerated hernia repair. Has VIOLETA on CKD 3A. Has VIOLETA on CKD 3A likely in settings of dehydration and low oral intake. Will proceed with 1L NS at 80 cc/h and monitor renal function closely. VIOLETA on CKD 3A Acute contrast nephropathy Hx of CHF with EF around 33%, on GDMT. Hx of liver cirrhosis, meth and alcohol abuse. POD2 uncomplicated hernia repair without significant bleed. Symptoms appeared [address] Has declining renal function with CR 2.5 (baseline 1.6), EGFR 32 (baseline 55). Reports good urine output, about 1.5 L daily. Has dry oral mucusa on exam, no quita LE edema, lungs CTAB. Likely developing VIOLETA on top of CKD 3A. Renal function improving, CR 2.0, BUN 52, EGFR 42. ? Renally dose meds, avoid overdiuresis and NEPHROTOXINS ? Daily CMP ? Encourage oral hydration ? Recommended discontinuing JANUMET on discharge, consider starting JANUVIA. Hyperkalemia Potassium 5.5 > 5.4 >5.2. Likely 2/2 VIOLETA. Asymmptomatic, no EKG changes. ? KAYEXALATE as needed Mild Hypovolemic Hyposomolar Hyponatremia (improving) Admission serum osm 273. Sodium 129, likely poor oral hydration 2/2 NPO. Overall improved with fluids. Sodium 133, serum osmolality 282. Urine sodium 24.1 ? Continue with oral hydration Hyperphosphatermia (resolved) Likely dehydrational. Anticipate improvement as above. Incarcerated umbilical hernia s/p umbilical hernia repair Small bowel obstruction T2DM history of alcohol use Methamphetamine use CAD status post CABG Managed as per primary team. Patient case was discussed with attending, Dr. Miguel Angel Corral, DO PGYI Attending Provider Attestation/Addendum Patient seen and examined with resident physician Dr. Merlos Note reviewed, agree with findings and recommendations. Patient admitted with acute renal failure. Agree with gentle IV fluids. Suspect prerenal superimposed on contrast nephropathy.
[2024-05-19 06:46] LABS: Alanine Aminotransferase 7 U/L (10-49); Albumin, Serum 3.7 gm/dL (3.5-5.0); Alkaline Phosphatase 90 U/L (46-116); Anion Gap 10 (7-16); Aspartate Amino Transferase 18 U/L (0-34); BUN/Creatinine Ratio 26 Ratio (12-20); Blood Urea Nitrogen 52 mg/dL (9-23); Calcium 8.9 mg/dL (8.3-10.6); Calcium (Corrected) 9.1 mg/dL (8.5-10.1); Chloride 100 mMol/L (98-107); Estimated Creatinine Clearance 47.3 mL/min (>60); Globulin 3.7 gm/dL (2.3-3.5); Glucose 126 mg/dL (74-106); Magnesium 1.9 mg/dL (1.6-2.6); Osmolality,Calculated 282 (275-295); Phosphorous 4.2 mg/dL (2.4-5.1); Potassium 5.2 mMol/L (3.4-5.1); Sodium 133 mMol/L (136-145); Total Protein 7.4 gm/dL (5.7-8.2); eGFR 42 See Note
[2024-05-19] MEDS: SOD POLYSTYRENE SULFON SUSP 15 GM/60 ML BTL PO (07:46)
[2024-05-19 08:00] VITALS: BP 110/73; PULSE 65; RESP 18; TEMP 36.3; O2SAT 97
[2024-05-19 09:57] VITALS: PULSE 89; RESP 18; RESP 98
--- NOTE | 2024-05-19 11:20 | ESPR_ITS ---
Documentation for date of: 05/19/24 Subjective Subjective Brief History: 44M with HTN, DM, and CHF, CAD s/p CABG in 2012, cirrhosis and known umbilical hernia presenting with abdominal pain, nausea/vomiting. Pt reports pain began suddenly yesterday at the site of his known umbilical hernia, and the hernia felt firm. He vomited most recently at 7pm and his last BM was yesterday. CT shows 19mm umbilical defect containing small bowel. Pt underwent attempted kishor cement of NG in ER but it was aborted due to epistaxis PMH: HTN, DM, CAD, cirrhosis PSHx: CABG Meds: includes ASA 81, no other antiplt or anticoagulation as of now Allergies: NKDA Narrative: Pain controlled, tolerating regular diet and having bowel function, vitals remaining normal and creatinine downtrending Exam Vital Signs Temp Pulse Resp BP Pulse Ox O2 Del Method O2 Flow Rate 97.3 F 65 18 110/73 97 Room Air 3 05/19/24 08:00 05/19/24 08:00 05/19/24 08:00 05/19/24 08:00 05/19/24 08:00 05/19/24 08:00 05/18/24 00:00 Constitutional Constitutional: no acute distress Routine Respiratory Exam Respiratory: Present no resp distress Routine Abdominal Exam Abdominal: Present soft and wound (Supraumbilical incision with kyle clean dry intact, no erythema, no fluctuance or drainage); Absent tenderness or distended Results Results: Laboratory Laboratory results: results reviewed Assessment & Plan Plan 44M with HTN, DM, CHF, CAD status post CABG in 2012 and cirrhosis presenting with an incarcerated umbilical hernia s/p emergent reduction and repair 05/17, gradually recovering OK for dc from my standpoint Will follow up as outpt in 2 weeks Procedures Procedures Reduction of incarcerated umbilical herniated contents, primary repair of umbilical hernia
--- NOTE | 2024-05-19 11:38 | PC.SS ---
SS follow up note; Patient will discharge home today.
[2024-05-19 12:00] VITALS: BP 118/82; PULSE 78; RESP 19; TEMP 36.1; O2SAT 97
--- NOTE | 2024-05-19 15:53 | PD.RESDS ---
Planned Discharge Date 05/19/24 DS: Providers Provider Date of admission: 05/17/24 02:26 Primary care physician: Norma Gallegos MD Admitting Provider: Juwan Doty MD Attending Provider on Admission: Sophia Hidalgo MD Consults: 05/17/24 00:35 Consult to General Surgery Stat Comment: SBO Consulting Provider: Karrie Dubose 05/18/24 10:16 Consult to Nephrology Routine Comment: VIOLETA/CKD Consulting Provider: Yoni Michelle Attending Provider on DC: Pete Kirkland MD Discharging Provider: Pete Kirkland MD DS: Diagnosis Problem List Completed Was Problem List Reviewed/Reconciled?: Yes Hospital Course Hospital Course Hospital course: Mr. Holland is a 44 year-old male with PMHx of CHF with EF around 33%, alcoholic liver cirrhosis, CAD s/p CABG, HTN, DM, remove DVT, METH use, who presented to [facility] ED with abdominal pain and found to have incarcerated small bowel in umbilical hernia. He underwent uncomplicated surgical reduction of incarcerated umbilical herniated contents and primary repair of umbilical hernia on 05/14/24, with no significant blood loss or complications. He has been feeling well post-op, pain is well controlled, Pt is tolerating oral diet and as well passing gas and had 2 bowel movements. During hospital admission pt had worsening renal function despite fluids, therefore residential collections was consulted who recommended gentle fluids and switching pt from janumet to Januvia. Pt is recommended to follow up outpatient with nephrolgist. Pt is hemodynamicaly cleared to be discharged home to self-care. Pt is advised to follow up outpatient Dr. Dubose with in 1 week after discharge. Discharge Recommendations -Follow up with your primary care physician within 1 week -Follow up with Surgeon Dr. Dubose outpatient within 1 week -Follow up with residential collections Dr. Michelle within 1 week -Please see real estate executive assistant within 1 week -We have discontinued your medication Janumet and started you on Januvia instead. -If your symptoms worsen or return please return to the ED Hospitalization Diagnosis #Incarcerated umbilical hernia s/p umbilical hernia repair #Small bowel obstruction- improved #Acute Kidney injury on CKD #History of CAD status post CABG #History of CHF #History of liver cirrhosis, compensated #History of hypertension #History of type 2 diabetes #history of alcohol use #history of methamphetamine use Assessment and plan discussed with my attending physician Dr. Gwen Kirkland (PGY-1)- Internal medicine resident Status at Discharge Functional status at discharge: independent ambulation Time Spent with Patient Time attestation: Total time spent providing and/or coordinating discharge services: Time spent: Less than 30 minutes Exam Vital Signs Temp Pulse Resp BP Pulse Ox O2 Del Method O2 Flow Rate 97.0 F 78 19 118/82 97 Room Air 3 05/19/24 12:00 05/19/24 12:00 05/19/24 12:00 05/19/24 12:00 05/19/24 12:00 05/19/24 12:00 05/18/24 00:00 Narrative Exam GENERAL: somnolent s/p surgery NEURO: no focal neurological deficits HEENT: Atraumatic, Normocephalic. mucous membranes moist. Eyes open, symmetrical, & clear HEART: Normal Heart Sounds LUNGS: Clear to auscultation with no wheezing or crackles. ABDOMEN: s/p sbdominal surgery, pt has abdominal binder on SKIN: No Rash or ecchymoses EXTREMITIES: No edema, tenderness, able to move all 4 extremities, pedal pulses palpated Discharge Plan Plan Patient Disposition: HOME (Self Care) Patient condition on transfer: Stable Care Plan Goals: -Follow up with your primary care physician within 1 week -Follow up with Surgeon Dr. Dubose outpatient within 1 week -Follow up with residential collections Dr. Michelle within 1 week -Please see real estate executive assistant within 1 week -We have discontinued your medication Janumet and started you on Januvia instead. -If your symptoms worsen or return please return to the ED Prescriptions/Referrals Prescriptions/Med Rec: New oxycodone-acetaminophen 5-325 mg tablet 1 tab PO Q6H MDD 20 mg PRN (Reason: pain) Qty: 10 0RF Januvia 50 mg tablet 50 mg PO QDAY Qty: 30 2RF Continued (DME) blood-glucose meter [Blood Glucose Monitoring] Kit See Rx Instructions .ROUTE .MEDSUPPLY Qty: 1 0RF Rx Instructions: As directed check BS 3 times a day (DME) Blood Glucose Test Strip See Rx Instructions .ROUTE .MEDSUPPLY Qty: 100 0RF Rx Instructions: As directed check BS 3 times a day (DME) lancets [BD Ultra-Fine II Lancets] 30 gauge misc See Rx Instructions .ROUTE .MEDSUPPLY Qty: 100 0RF Rx Instructions: As directed check BS 3 times a day dapagliflozin propanediol [Farxiga] 10 mg tablet 10 mg PO DAILY Entresto 24-26 mg Tablet 1 tab PO BID Discontinued Janumet 50-1,000 mg tablet 1 tab PO BID Patient Comments: TAKE 1 TABLET BY MOUTH TWICE A DAY WITH A MEAL Referrals: Norma Gallegos MD [Primary Care Provider] - Karrie Dubose MD [Physician] - (You will receive a phone call to confirm a follow-up appointment with me in 2 weeks) Patient/Caregiver Discharge Instructions Other Discharge Activity Instructions:: Avoid lifting objects greater than 10 pounds for 6 weeks You may shower, it is okay to get your incision wet. Pat dry after Avoid bathing or swimming for 2 weeks If you develop worsening pain, nausea/vomiting, fever, and/or redness around incision please seek care in ER Education Materials: Small Bowel Obstruction, Incision Care Abdomen Dc, How a Hernia Develops, Hernia Surgery Traditional Print Language: Croatian Activity Restrictions/Additional Instructions: Follow up with PCP within 2 weeks. Follow up with surgeon Dr. Dubose within [address] [place] [address] Continue home medications as prescribed. Stand Alone Forms: Ellie Award Info., Patient Portal Info Letter Discharge Order Discharge Orders: Discharge (Routine); Ordered 05/19/24 Ordered By: Pete Kirkland Quality Discharge Quality Measures VTE prophylaxis Attestestation Attestation I attest that I was physically present for the evaluation, physical examination, lab and imaging review of the patient with the residents. I discussed the case with the residents and agree with the findings and plans of care as documented above. Sophia Hidalgo MD
== END 2024-05-19 14:10 | disposition home or self-care (01) | DRG 228 ==
LOC: SERX 05-17 02:59 → SERHOLD 05-17 03:14 → S3NX 05-17 06:18
PROVIDERS: Physician Assistant; Surgery; Admitting Provider Internal Medicine; Emergency Provider Emergency Medicine; PCP Family Medicine; Visit Provider Student in an Organized Health Care Education/Training Program
PROC: 0WQF0ZZ Repair Abdominal Wall, Open Approach (ICD-10-PCS; principal; 2024-05-17 03:30)
DX: K42.0 Umbilical hernia with obstruction, without gangrene (principal); I50.9 Heart failure, unspecified; I13.0 Hypertensive heart and chronic kidney disease with heart failure and stage 1 through stage 4 chronic kidney disease, or unspecified chronic kidney disease; I25.10 Atherosclerotic heart disease of native coronary artery without angina pectoris; I27.21 Secondary pulmonary arterial hypertension; F17.200 Nicotine dependence, unspecified, uncomplicated; K70.31 Alcoholic cirrhosis of liver with ascites; F15.90 Other stimulant use, unspecified, uncomplicated; E11.22 Type 2 diabetes mellitus with diabetic chronic kidney disease; N18.31 Chronic kidney disease, stage 3a; T50.8X5A Adverse effect of diagnostic agents, initial encounter; E87.5 Hyperkalemia; Z86.718 Personal history of other venous thrombosis and embolism; E87.1 Hypo-osmolality and hyponatremia; R04.0 Epistaxis; I48.91 Unspecified atrial fibrillation; E83.39 Other disorders of phosphorus metabolism; N14.11 Contrast-induced nephropathy; Z79.82 Long term (current) use of aspirin; Z95.1 Presence of aortocoronary bypass graft; E86.1 Hypovolemia; E86.0 Dehydration
CPT/HCPCS: 36415; 71046; 71275; 74177; 76705; 80053; 80069; 80307; 80320; 81001; 82140; 82150; 82248; 83690; 83735; 83880; 84100; 84300; 84439; 84443; 84484; 85025; 85379; 85610; 85730; 93005; 96374; 96375; 99285; A4217; A4649; J0131; J0690; J1100; J1815; J1885; J1938; J2250; J2270; J2371; J2405; J2704; J3010; J3490; J7030; Q9967; A9270; G0480

== ENCOUNTER 2024-06-09 10:54 | Outpatient (AMB) | payer MEDICAID, SELFPAY ==
[2024-06-09 11:02] VITALS: BP 110/73; PULSE 75; RESP 18; TEMP 36.6; O2SAT 97; BMI 34.3
--- NOTE | 2024-06-09 11:02 | PD.GSCLVISIT ---
Vital Signs - [facility] 06/09/24 11:02 Height 1.63 m Height Method Stated Weight 91.285 kg Weight Measurement Method Standing Scale BMI 34.3 BP 110/73 Blood Pressure Source Automatic Cuff Blood Pressure Location Left Upper Arm Position Sitting Respiration 18 Pulse 75 Pulse Source Monitor Temp 97.9 F Temp Source Temporal Artery Scan Pulse Oximetry (%) 97 Oxygen Delivery Method Room Air Med/Allergies Allergies & Medications Allergies No Known Allergies Allergy (Verified 06/09/24 11:04) Medication Reconciliation blood sugar diagnostic (Blood Glucose Test strips) #100 ea 07/17/19 [Rx Confirmed 06/09/24] blood-glucose meter (Blood Glucose Monitoring kit) #1 ea 07/17/19 [Rx Confirmed 06/09/24] lancets 30 gauge (BD Ultra-Fine II Lancets) #100 ea 07/17/19 [Rx Confirmed 06/09/24] dapagliflozin propanediol 10 mg tablet (Farxiga) 10 mg PO DAILY 02/26/24 [History Confirmed 06/09/24] sacubitril 24 mg-valsartan 26 mg tablet (Entresto) 1 tab PO BID 02/26/24 [History Confirmed 06/09/24] oxycodone-acetaminophen 5 mg-325 mg tablet 1 tab PO Q6H PRN pain #10 tabs 05/19/24 [Rx Confirmed 06/09/24] sitagliptin phosphate 50 mg tablet (Januvia) 50 mg PO QDAY #30 tabs 05/19/24 [Rx Confirmed 06/09/24] MA Intake Visit Data Collection New Patient or Established: Established Patient (seen at [facility] within 3 years) Seen by Clinical Staff ONLY (RN/MA): No Reason for Visit:: FOLLOW UP POST OP Pain Present Currently: No PCP or OBGYN visit in last 3 months: Yes Hx Now: No Do You Feel Safe at Home: Yes Authorities Contacted: N/A Smoking Status Smoking Status: Current every day smoker Cessation Counseling Provided: SERGIO was advised that quitting smoking is the single most important factor to protect the health of themselves and their family. Discussed the benefits of quitting smoking with patient. Encouraged patient to quit smoking and provided Cessation assistance materials and resources. Tobacco Use: Cigarette Years smoked: 29 Are you interested in quitting?: No Immunization / Flu Flu Vaccine in the Last 12 Months: Yes Flu Vaccine Exclusion Criteria: No Exclusion Criteria Past Medical History Past Medical History NEUROLOGIC: Positive Cerebrovascular Accident; Negative Neurological Disorders or Seizures CARDIAC: Positive Cardiac Disorders, Myocardial Infarction, Coronary Artery Disease, Hypercholesterolemia, Deep Vein Thrombosis and Hypertension; Negative Congestive Heart Failure RESPIRATORY: Positive Asthma and Bronchitis; Negative Chronic Obstructive Pulmonary Disease (COPD) GASTROINTESTINAL: Positive Gastrointestinal Disorders and Gastroesophageal Reflux Disease GENITOURINARY: Negative Renal Disease ENDOCRINE: Positive Endocrine Disorders and Diabetes Mellitus Type 2; Negative Diabetes Mellitus Type 1 HEMATOLOGIC: Negative Blood Disorders or Sickle Cell Disease OTHER HISTORY: Negative Autoimmune Disease, Blood Transfusions, Anesthesia Reactions, MRSA, Clostridium Difficile or Cancer Family History FAMILY HISTORY: Positive Family Cardiac Disorders Surgical History SURGICAL: Positive Cardiac Surgery and Coronary Artery Bypass Graft; Negative Abdominal Surgery Social History SMOKING STATUS: Smoking status: Current every day smoker ALCOHOL: Alcohol Intake: Current ALCOHOL FREQUENCY: Alcohol Intake Frequency: A Few Times a Month HOUSING: Housing: House LIVES WITH: Lives With: Family HPI HPI Narrative 44M with HTN, DM, CHF, CAD status post CABG in 2012 and cirrhosis presenting with an incarcerated umbilical hernia s/p emergent reduction and repair 05/17 here for planned follow up. Pt reports he feels well overall, pain is controlled and he is eating well, having regular BMs without any fever. He has some itching of the incision but otherwise no complaints, and is following up with his PCP on 06/11 ROS Review of Systems Systems Reviewed: All systems reviewed, normal except as documented Objective/Exam General General Appearance: alert, cooperative and well groomed Resp Respiratory exam: Absent respiratory distress Abdominal Abdominal exam: Present soft and incision (c/d/i, kyle removed, no erythema, no fluctuance or tenderness); Absent distention, tenderness or hernia (no sign of recurrent umbilical hernia) Results Pathology of hernia sac reviewed Assessment & Plan Diagnosis / Problem List (1) Incarcerated umbilical hernia: Status: Acute Assessment & Plan: 44M with HTN, DM, CHF, CAD status post CABG in 2012 and cirrhosis presenting with an incarcerated umbilical hernia s/p emergent reduction and repair 05/17, recovering well postop. I reminded him to avoid strenuous activity including lifting objects >10lbs for 6 weeks postop, and encouraged him to talk to his PCP regarding his overall health particularly his kidney and liver health. All questions were answered and pt is encouraged to reach out with concerns or questions Office Procedures GNS Level of Care Nursing/Assessment Patient Status: Established Patient Nursing Assessment/Reassesment: Medication Reconciliation, Update PMH in EMR and Vital Signs Coordination of Care: Complex Care and Chronic Disease 1-5, Consent,records obtained, informed consent, Education Simp Pt/Fam, Results/Orders obtained and Staff clarify orders Established Patient Charge Established Patient Point Assignment: 90 Established Patient Point Charge: Level 3 (80-115) Patient Portal Questionaires Social History Living Situation History Housing: House Housing Other:: Lives with ex inlaws. Tobacco History Smoking Status: Current every day smoker Alcohol History Alcohol Intake: Current Alcohol Intake Frequency: A Few Times a Month Substance Use History Substance Use: Meth Domestic Abuse History Do You Feel Safe at Home: Yes Review of Systems Report any current symptoms Only answer those that you have currently: Past Medical History Past Medical History Have you ever been diagnosed with any of the following: Neurological Problems Cerebrovascular Accident (CVA): Yes Seizures: No Cardiology Problems Myocardial Infarction: Yes Coronary Artery Disease: Yes Hypercholesterolemia: Yes Congestive Heart Failure: No Deep Vein Thrombosis: Yes Hypertension: Yes Respiratory Problems Chronic Obstructive Pulmonary Disease (COPD): No Asthma: Yes Bronchitis: Yes Stomache/Intestinal Problems Gastroesophageal Reflux Disease: Yes Genital/Urinary Problems Renal Disease: No Endocrine Problems Diabetes Mellitus Type 1: No Diabetes Mellitus Type 2: Yes Blood Problems Sickle Cell Disease: No Other Problems Autoimmune Disease: No Blood Transfusions: No Anesthesia Reactions: No MRSA: No Clostridium Difficile: No Cancer: No Surgical History Coronary Artery Bypass Graft: Yes
== END 2024-06-09 11:22 | disposition home or self-care (01) ==
LOC: HODSRG 10:54
PROVIDERS: PCP Family Medicine; Referring Provider Family Medicine; Supervising Provider Surgery; Visit Provider Surgery
DX: Z48.815 Encounter for surgical aftercare following surgery on the digestive system (principal)
CPT/HCPCS: 99213; G0463